=== PATIENT | male | born 1950 | race Caucasian/White ===

== ENCOUNTER 2020-03-11 19:44 | Emergency (ER) | payer MEDICARE, MEDICAID, SELFPAY ==
[2020-03-11 19:54] VITALS: BP 161/78; BP 162/77; PULSE 59; PULSE 64; RESP 15; TEMP 36; O2SAT 98; BMI 20.6
--- NOTE | 2020-03-11 20:39 | ED.WEAKNESS ---
HPI - Weakness General Chief complaint: Weakness Stated complaint: dizzy,de leon,not feeling well for days Time Seen by Provider: 03/11/20 20:36 Source: family Mode of arrival: ambulatory Limitations: altered mental status History of Present Illness HPI Narrative: patient's history of dementia brought by his for poor oral intake and feeling dizzy yesterday did not eat much all day today per no vomiting no diarrhea patient has done like this in the past, multiple times MD Complaint: generalized weakness Related Data Home Medications Medication Instructions Recorded Confirmed acetaminophen 1 tab PO TID PRN 03/11/20 03/11/20 cholecalciferol (vitamin D3) 1 cap PO QAM 03/11/20 03/11/20 dapagliflozin [Farxiga] 1 tab PO QAM 03/11/20 03/11/20 fluoxetine 1 cap PO QAM 03/11/20 03/11/20 metformin 1 tab PO BID 03/11/20 03/11/20 omega-3 fatty acids-fish oil [Fish 1 cap PO BEDTIME 03/11/20 03/11/20 Oil] omeprazole 1 cap PO QAM 03/11/20 03/11/20 Previous Rx's Medication Instructions Recorded atorvastatin 80 mg tablet 80 mg PO BEDTIME #90 tab 02/26/20 fenofibric acid (choline) 135 mg 135 mg PO BEDTIME #90 cap 03/01/20 capsule,delayed release metoprolol succinate 25 mg 25 mg PO QAM #90 tab 03/01/20 tablet,extended release 24 hr pen needle, diabetic 31 gauge x 1 ea MISCELLANEOUS DAILY #100 ea 03/01/20/ trazodone 50 mg tablet 25 mg PO BEDTIME #30 tab 03/01/20 valsartan 320 mg tablet 320 mg PO QAM #90 tab 03/01/20 docusate sodium 100 mg capsule 100 mg PO DAILY 30 Days #30 cap 03/04/20 Allergies Allergy/AdvReac Type Severity Reaction Status Date / Time diatrizoate sodium Allergy Unknown HIVES Verified 03/11/20 22:05 [From HYPAQUE] Iodinated Contrast Media Allergy Unknown HIVES Verified 03/11/20 22:05 [IV Dye, Iodine Containing] penicillin V Allergy Unknown Hives Verified 03/11/20 22:05 Penicillins [PENICILLINS] Allergy Unknown RASH Verified 11/05/20 22:05 dulaglutide [Trulicity] AdvReac Unknown abdominal Verified 12/29/19 00:00 pain Hypaque Meglumine Allergy Unknown Hives Uncoded 03/11/20 22:05 Hypaque Sodium Allergy Unknown Hives Uncoded 03/11/20 22:05 IV Contrast Allergy Unknown Hives Uncoded 03/11/20 22:05 iv dye Allergy Unknown Hives Uncoded 03/11/20 22:05 Review of Systems Review of Systems: Yes Unobtainable due to mental status [facility] Past Medical History Medical History (Updated 03/11/20 @ 23:26 by Vinnie Calderon MD) Dementia Developmental delay, mild Insomnia Surgical History (Updated 03/11/20 @ 20:05 by Meggan Hall) No history of previous surgery Social History Social History Alcohol intake: never Smoking Status: Never smoker Use of substances other than those prescribed or required for medical reasons: No Advance Directives: No Advance Directives Information Provided: No Physical Exam Vital Signs: Vital Signs: Last Vital Signs Temp 97.8 F 03/11/20 21:02 Pulse 66 03/11/20 22:23 Resp 15 03/11/20 22:23 BP 157/74 H 03/11/20 22:23 Pulse Ox 100 03/11/20 22:23 Body Mass Index 20.6 Appearance: Alert. Oriented X1. No acute distress. Eyes: Pupils equal, round and reactive to light. ENT: Pharynx normal. Neck: Normal inspection. Neck supple. CVS: Normal heart rate and rhythm. Pulses normal. Respiratory: No respiratory distress. Breath sounds normal. Abdomen: Soft and nontender. no mass palpable bowel sounds normal Skin: Skin warm and dry. Normal skin color. Normal skin turgor. Extremities: No lower extremity edema. Good range of movement Neuro: Oriented X 1. No motor deficit. No sensory deficit. severely demented Course Course Course Narrative: patient had p.o. fluids and had sandwich in the ER labs are stable will discharge patient home advised to continue force him to eat and drink and symptoms likely from dimentia MDM - Weakness Lab Data Result diagrams: 03/11/20 21:25 03/11/20 21:25 Labs: Lab Results 03/11/20 03/11/20 Range/Units 21:25 21:25 WBC 4.7 L (4.8-10.8) X10*3/uL RBC 4.35 L (4.60-5.80) X10*6/uL Hgb 12.1 L (14.0-18.0) g/dl Hct 38.1 L (42-52) % MCV 87.6 (80-98) fL MCH 27.8 (27.0-33.0) pg MCHC 31.8 (31.0-36.0) g/dl RDW 13.1 (11.0-16.0) % Plt Count 145 L (160-400) X10*3/uL MPV 10.9 (9.4-12.4) fL Immature Gran % (Auto) 0.2 (0.0-0.4) % Neut % (Auto) 54.3 (45-73) % Lymph % (Auto) 37.2 (20-40) % [place] % (Auto) 7.7 (2-11) % Eos % (Auto) 0.2 (0-4) % Baso % (Auto) 0.4 (0-2) % Lymph # (Auto) 1.7 (1.2-4.9) X10*3/uL [place] # (Auto) 0.4 (0.1-1.2) X10*3/uL Eos # (Auto) 0.0 (0.0-0.4) X10*3/uL Baso # (Auto) 0.0 (0.0-0.2) X10*3/uL Abs Immat Gran (auto) 0.01 (0.00-0.03) X10*3/uL Absolute Neuts (auto) 2.5 (2.0-8.3) X10*3/uL Absolute Nucleated RBC 0.000 (0.0-0.012) X10*3/uL Nucleated RBC % (auto) 0.0 (0.0-0.2) /100WBC Sodium 143 (135-145) mmol/L Potassium 3.6 (3.3-5.1) mmol/l Chloride 108 (96-108) mmol/L Carbon Dioxide 27 (22-29) mmol/L Anion Gap 12 (12-20) BUN 33 H (9-16) mg/dL Creatinine 0.79 (0.5-1.4) mg/dL Estim Creat Clear Calc 69.9 Estimated GFR > 60 Random Glucose 137 H (60-115) mg/dL Calcium 8.6 (8.4-10.2) mg/dL Magnesium 2.1 (1.6-2.6) mg/dL Total Bilirubin 0.4 (0.0-1.0) mg/dL Direct Bilirubin 0.3 (0.0-0.5) mg/dL AST 19 (5-37) U/L ALT 19 (0-40) U/L Alkaline Phosphatase 44 (39-117) U/L Total Protein 6.1 L (6.5-8.0) g/dL Albumin 3.9 (3.5-5.0) g/dL Lipase 88 H (8-78) U/L Discharge Plan Discharge Clinical Impression: Adult failure to thrive Patient Disposition: Home, Self-Care Instructions: Failure to Thrive in Older Adults (ED) Additional Instructions: give patient plenty of fluids and food and follow-up with your primary care doctor for further management Prescriptions: No Action atorvastatin 80 mg tablet 80 mg PO BEDTIME Qty: 90 RF: 3 valsartan 320 mg tablet 320 mg PO QAM Qty: 90 RF: 3 metoprolol succinate 25 mg tablet extended release 24 hr 25 mg PO QAM Qty: 90 RF: 0 fenofibric acid (choline) 135 mg capsule,delayed release(DR/EC) 135 mg PO BEDTIME Qty: 90 RF: 0 pen needle, diabetic [Easy Touch] 31 gauge x 3/16 needle 1 ea miscellaneous DAILY Qty: 100 RF: 0 trazodone 50 mg tablet 25 mg PO BEDTIME Qty: 30 RF: 0 docusate sodium [Colace] 100 mg capsule 100 mg PO DAILY 30 Days Qty: 30 RF: 2 acetaminophen 500 mg tablet 1 tab PO TID PRN (Reason: Pain (Scale Score 4-6)) RF: 0 metformin 1,000 mg tablet 1 tab PO BID RF: 0 fluoxetine 10 mg capsule 1 cap PO QAM RF: 0 omeprazole 20 mg capsule,delayed release(DR/EC) 1 cap PO QAM RF: 0 cholecalciferol (vitamin D3) 125 mcg (5,000 unit) capsule 1 cap PO QAM RF: 0 Fish Oil 340-1,000 mg capsule 1 cap PO BEDTIME RF: 0 Farxiga 10 mg tablet 1 tab PO QAM RF: 0 Interventions: ED Discharge Assessment Last Done: 03/12/20 00:30 Discharge Date/Time: 03/12/20 00:31 Print Language: Indian
[2020-03-11] MEDS: 0.9 % Sodium Chloride 1,000 ML 999 ML IVCONT (21:00)
[2020-03-11 21:02] VITALS: BP 159/79; PULSE 59; RESP 18; TEMP 36.6
[2020-03-11 21:48] LABS: MANUAL DIFF FLAG NO
[2020-03-11 21:55] LABS: Basophils Percent Auto 0.4 % (0-2); Eosinophils Percent Auto 0.2 % (0-4); Hematocrit 38.1 % (42-52); Hemoglobin 12.1 g/dl (14.0-18.0); Imm Gran Abs Auto 0.01 X10*3/uL (0.00-0.03); Imm Gran Pct Auto 0.2 % (0.0-0.4); Lymphocytes Absolute Auto 1.7 X10*3/uL (1.2-4.9); Lymphocytes Percent Auto 37.2 % (20-40); Mean Corpuscular HGB Conc 31.8 g/dl (31.0-36.0); Mean Corpuscular Hemoglobin 27.8 pg (27.0-33.0); Mean Corpuscular Volume 87.6 fL (80-98); Mean Platelet Volume 10.9 fL (9.4-12.4); Monocytes Absolute Auto 0.4 X10*3/uL (0.1-1.2); Monocytes Percent Auto 7.7 % (2-11); Neutrophils Absolute Auto 2.5 X10*3/uL (2.0-8.3); Neutrophils Percent Auto 54.3 % (45-73); Platelet Count 145 X10*3/uL (160-400); Red Blood Count 4.35 X10*6/uL (4.60-5.80); Red Cell Distribution Width 13.1 % (11.0-16.0); White Blood Count 4.7 X10*3/uL (4.8-10.8)
[2020-03-11 22:17] LABS: Alanine Aminotransferase 19 U/L (0-40); Albumin Level 3.9 g/dL (3.5-5.0); Alkaline Phosphatase 44 U/L (39-117); Anion Gap 12 (12-20); Aspartate Amino Transferase 19 U/L (5-37); Bilirubin Direct 0.3 mg/dL (0.0-0.5); Bilirubin Total 0.4 mg/dL (0.0-1.0); Blood Urea Nitrogen 33 mg/dL (9-16); Calcium 8.6 mg/dL (8.4-10.2); Carbon Dioxide 27 mmol/L (22-29); Chloride 108 mmol/L (96-108); Creatinine Clr Calc Pharmacy 69.9; Estimated Glomerular Filt Rate > 60; Glucose Random 137 mg/dL (60-115); Magnesium 2.1 mg/dL (1.6-2.6); Potassium 3.6 mmol/l (3.3-5.1); Sodium 143 mmol/L (135-145); Total Protein 6.1 g/dL (6.5-8.0)
[2020-03-11 22:23] VITALS: BP 157/74; PULSE 66; RESP 15; O2SAT 100
[2020-03-11 22:38] LABS: Lipase 88 U/L (8-78)
== END 2020-03-12 00:31 | disposition home or self-care (01) ==
PROVIDERS: Emergency Provider Internal Medicine; PCP Internal Medicine
DX: R53.1 Weakness (principal); R62.7 Adult failure to thrive; R42 Dizziness and giddiness; Z79.899 Other long term (current) drug therapy
CPT/HCPCS: 36415; 80048; 80076; 83690; 83735; 85025; 96360; 99284

== ENCOUNTER 2020-04-01 06:34 | Emergency (ER) | payer MEDICARE, MEDICAID, SELFPAY ==
[2020-04-01 07:15] VITALS: BP 131/62; PULSE 53; RESP 16; TEMP 36.6; O2SAT 99
[2020-04-01 07:44] VITALS: RESP 16
--- NOTE | 2020-04-01 08:06 | ED_ITS ---
HPI - Abdominal Pain General Chief Complaint: Abdominal Pain Stated Complaint: Constipated Time Seen by Provider: 04/01/20 07:42 History of Present Illness HPI narrative: patient is a 69-year-old male presented today with having no bowel movement for the last 2 weeks. No fever no chills no cough no congestion or upper respiratory symptoms. Patient is from home. No nausea no vomiting. Eating normally. Patient is mentally challenged. Also has dementia. Baseline awake alert oriented times 0. Patient is unable to give detailed history. History is obtained through the [facility] Related Data Home Medications Medication Instructions Recorded Confirmed acetaminophen 1 tab PO TID PRN 03/11/20 03/11/20 cholecalciferol (vitamin D3) 1 cap PO QAM 03/11/20 03/11/20 dapagliflozin [Farxiga] 1 tab PO QAM 03/11/20 03/11/20 fluoxetine 1 cap PO QAM 03/11/20 03/11/20 metformin 1 tab PO BID 03/11/20 03/11/20 Previous Rx's Medication Instructions Recorded atorvastatin 80 mg tablet 80 mg PO BEDTIME #90 tab 02/26/20 fenofibric acid (choline) 135 mg 135 mg PO BEDTIME #90 cap 03/01/20 capsule,delayed release metoprolol succinate 25 mg 25 mg PO QAM #90 tab 03/01/20 tablet,extended release 24 hr pen needle, diabetic 31 gauge x 1 ea MISCELLANEOUS DAILY #100 ea 03/01/20 3/16 trazodone 50 mg tablet 25 mg PO BEDTIME #30 tab 03/01/20 valsartan 320 mg tablet 320 mg PO QAM #90 tab 03/01/20 docusate sodium 100 mg capsule 100 mg PO DAILY 30 Days #30 cap 03/04/20 blood sugar diagnostic #50 ea 03/25/20 yhrime-[id number]-bepbvon 1 cap PO .TIDAC 30 Days #90 cap 03/25/20 3,000-10,000-14,000 unit capsule,delayed rel omega-3 fatty acids-fish oil 340 1 cap PO BEDTIME #30 cap 03/25/20 mg-1,000 mg capsule omeprazole 20 mg capsule,delayed 20 mg PO QAM 30 Days #30 cap 03/25/20 release polyethylene glycol 3350 [Miralax] 17 g PO BID #119 g 04/01/20 Allergies Allergy/AdvReac Type Severity Reaction Status Date / Time diatrizoate sodium Allergy Unknown HIVES Verified 03/11/20 22:05 [From HYPAQUE] Iodinated Contrast Media Allergy Unknown HIVES Verified 03/11/20 22:05 [IV Dye, Iodine Containing] penicillin V Allergy Unknown Hives Verified 03/11/20 22:05 Penicillins [PENICILLINS] Allergy Unknown RASH Verified 03/11/20 22:05 dulaglutide [Trulicity] AdvReac Unknown abdominal Verified 12/29/19 00:00 pain Hypaque Meglumine Allergy Unknown Hives Uncoded 03/11/20 22:05 Hypaque Sodium Allergy Unknown Hives Uncoded 03/11/20 22:05 IV Contrast Allergy Unknown Hives Uncoded 03/11/20 22:05 iv dye Allergy Unknown Hives Uncoded 03/11/20 22:05 Review of Systems Review of Systems Yes Unobtainable due to mental condition and Unobtainable due to mental status Physical Exam Vital Signs: Vital Signs: Last Vital Signs Temp 98 F 04/01/20 07:15 Pulse 53 04/01/20 07:15 Resp 16 04/01/20 07:44 BP 131/62 04/01/20 07:15 Pulse Ox 99 04/01/20 07:15 Body Mass Index 20.0 Appearance: Alert. No acute distress. Eyes: Pupils equal, round and reactive to light. ENT: Pharynx normal. Neck: Normal inspection. Neck supple. No lymph nodes noted. No crepitus CVS: Normal heart rate and rhythm. Pulses normal. Normal S1 and S2 Respiratory: No respiratory distress. Breath sounds normal. No Wheezing. No rales Abdomen: Soft and nontender. No rigidity. No distention. good BS x4 Skin: Skin warm and dry. Normal skin color. Normal skin turgor. Extremities: No lower extremity edema. Neurovascular intact to all extremities. No Lacerations. No Rash Neuro: Oriented X 0. No motor deficit. No sensory deficit. Moving all extermities. No slurred speech MDM - Abdominal Pain MDM Narrative Medical decision making narrative: Manually disimpacted small amount of stool. An enema was given a moderate amount of stool was produced. Patient's electrolytes unremarkable. Elevated BUN and creatinine is chronic. Patient to be discharged home. Repeat abdominal exam was soft nontender. Patient to be given MiraLax currently in stable condition. Differential Diagnosis Differential diagnosis: Likely constipation Medical Records Attestation: I reviewed the patient's medical records. Lab Data Attestation: I reviewed the patient's lab results. Result diagrams: 04/01/20 09:14 04/01/20 10:04 Labs: Lab Results 04/01/20 04/01/20 04/01/20 Range/Units 09:14 09:14 09:14 WBC 6.1 (4.8-10.8) X10*3/uL RBC 5.09 (4.60-5.80) X10*6/uL Hgb 14.1 (14.0-18.0) g/dl Hct 44.4 (42-52) % MCV 87.2 (80-98) fL MCH 27.7 (27.0-33.0) pg MCHC 31.8 (31.0-36.0) g/dl RDW 13.3 (11.0-16.0) % Plt Count 213 D (160-400) X10*3/uL MPV 10.6 (9.4-12.4) fL Immature Gran % (Auto) 0.2 (0.0-0.4) % Neut % (Auto) 46.1 (45-73) % Lymph % (Auto) 47.0 H (20-40) % [place] % (Auto) 6.1 (2-11) % Eos % (Auto) 0.3 (0-4) % Baso % (Auto) 0.3 (0-2) % Lymph # (Auto) 2.9 (1.2-4.9) X10*3/uL [place] # (Auto) 0.4 (0.1-1.2) X10*3/uL Eos # (Auto) 0.0 (0.0-0.4) X10*3/uL Baso # (Auto) 0.0 (0.0-0.2) X10*3/uL Abs Immat Gran (auto) 0.01 (0.00-0.03) X10*3/uL Absolute Neuts (auto) 2.8 (2.0-8.3) X10*3/uL Absolute Nucleated RBC 0.000 (0.0-0.012) X10*3/uL Nucleated RBC % (auto) 0.0 (0.0-0.2) /100WBC Hold Blue Top SEE NOTE Sodium Cancelled Potassium Cancelled Chloride Cancelled Carbon Dioxide Cancelled Anion Gap Cancelled BUN Cancelled Creatinine Cancelled Estim Creat Clear Calc Cancelled Estimated GFR Cancelled Random Glucose Cancelled Calcium Cancelled Total Bilirubin Cancelled Direct Bilirubin Cancelled AST Cancelled ALT Cancelled Alkaline Phosphatase Cancelled Total Protein Cancelled Albumin Cancelled Lipase Cancelled 04/01/20 04/01/20 04/01/20 Range/Units 10:04 10:04 10:04 WBC (4.8-10.8) X10*3/uL RBC (4.60-5.80) X10*6/uL Hgb (14.0-18.0) g/dl Hct (42-52) % MCV (80-98) fL MCH (27.0-33.0) pg MCHC (31.0-36.0) g/dl RDW (11.0-16.0) % Plt Count (160-400) X10*3/uL MPV (9.4-12.4) fL Immature Gran % (Auto) (0.0-0.4) % Neut % (Auto) (45-73) % Lymph % (Auto) (20-40) % [place] % (Auto) (2-11) % Eos % (Auto) (0-4) % Baso % (Auto) (0-2) % Lymph # (Auto) (1.2-4.9) X10*3/uL [place] # (Auto) (0.1-1.2) X10*3/uL Eos # (Auto) (0.0-0.4) X10*3/uL Baso # (Auto) (0.0-0.2) X10*3/uL Abs Immat Gran (auto) (0.00-0.03) X10*3/uL Absolute Neuts (auto) (2.0-8.3) X10*3/uL Absolute Nucleated RBC (0.0-0.012) X10*3/uL Nucleated RBC % (auto) (0.0-0.2) /100WBC Hold Blue Top Sodium 138 Potassium 3.8 Chloride 100 Carbon Dioxide 24 Anion Gap 18 BUN 37 H Creatinine 0.85 Estim Creat Clear Calc 65.3 Estimated GFR > 60 Random Glucose 193 H D Calcium 9.3 D Total Bilirubin 0.8 0.8 Direct Bilirubin 0.4 AST 19 19 ALT 18 18 Alkaline Phosphatase 42 43 Total Protein 7.2 7.2 Albumin 4.4 4.5 Lipase 39 Discharge Plan Discharge Clinical Impression: Constipation Patient Disposition: Home, Self-Care Instructions: Constipation (ED) Prescriptions: New polyethylene glycol 3350 [Miralax] 17 gram/dose powder 17 g PO BID Qty: 119 RF: 0 No Action atorvastatin 80 mg tablet 80 mg PO BEDTIME Qty: 90 RF: 3 valsartan 320 mg tablet 320 mg PO QAM Qty: 90 RF: 3 metoprolol succinate 25 mg tablet extended release 24 hr 25 mg PO QAM Qty: 90 RF: 0 fenofibric acid (choline) 135 mg capsule,delayed release(DR/EC) 135 mg PO BEDTIME Qty: 90 RF: 0 pen needle, diabetic [Easy Touch] 31 gauge x 3/16 needle 1 ea miscellaneous DAILY Qty: 100 RF: 0 trazodone 50 mg tablet 25 mg PO BEDTIME Qty: 30 RF: 0 docusate sodium [Colace] 100 mg capsule 100 mg PO DAILY 30 Days Qty: 30 RF: 2 (DME) FreeStyle Lite Strips Strip See Rx Instructions .ROUTE .MEDSUPPLY Qty: 50 RF: 11 Fish Oil 340-1,000 mg capsule 1 cap PO BEDTIME Qty: 30 RF: 6 omeprazole 20 mg capsule,delayed release(DR/EC) 20 mg PO QAM 30 Days Qty: 30 RF: 2 Zenpep 3,000-10,000 -14,000-unit capsule,delayed release(DR/EC) 1 cap PO .TIDAC 30 Days Qty: 90 RF: 2 acetaminophen 500 mg tablet 1 tab PO TID PRN (Reason: Pain (Scale Score 4-6)) RF: 0 metformin 1,000 mg tablet 1 tab PO BID RF: 0 fluoxetine 10 mg capsule 1 cap PO QAM RF: 0 cholecalciferol (vitamin D3) 125 mcg (5,000 unit) capsule 1 cap PO QAM RF: 0 Farxiga 10 mg tablet 1 tab PO QAM RF: 0 Referrals: Rajendra Quigley MD [Primary Care Provider] - 2 days [facility] Past Medical History Medical History Dementia Developmental delay, mild Dyslipidemia Insomnia Type 2 diabetes mellitus with other diabetic kidney complication Surgical History No history of previous surgery Social History Social History Alcohol intake: unknown Smoking Status: Unknown if ever smoked Use of substances other than those prescribed or required for medical reasons: No Advance Directives: No
[2020-04-01] MEDS: Sodium Phosphate,Mono-Dibasic 133 ML ENEMA PR (08:08)
[2020-04-01 09:19] LABS: Basophils Percent Auto 0.3 % (0-2); Eosinophils Percent Auto 0.3 % (0-4); Hematocrit 44.4 % (42-52); Hemoglobin 14.1 g/dl (14.0-18.0); Imm Gran Abs Auto 0.01 X10*3/uL (0.00-0.03); Imm Gran Pct Auto 0.2 % (0.0-0.4); Lymphocytes Absolute Auto 2.9 X10*3/uL (1.2-4.9); MANUAL DIFF FLAG NO; Mean Corpuscular HGB Conc 31.8 g/dl (31.0-36.0); Mean Corpuscular Hemoglobin 27.7 pg (27.0-33.0); Mean Corpuscular Volume 87.2 fL (80-98); Mean Platelet Volume 10.6 fL (9.4-12.4); Monocytes Absolute Auto 0.4 X10*3/uL (0.1-1.2); Monocytes Percent Auto 6.1 % (2-11); Neutrophils Absolute Auto 2.8 X10*3/uL (2.0-8.3); Neutrophils Percent Auto 46.1 % (45-73); Platelet Count 213 X10*3/uL (160-400); Red Blood Count 5.09 X10*6/uL (4.60-5.80); Red Cell Distribution Width 13.3 % (11.0-16.0); White Blood Count 6.1 X10*3/uL (4.8-10.8)
[2020-04-01 10:00] VITALS: RESP 16
[2020-04-01 10:39] LABS: Lipase 39 U/L (8-78)
[2020-04-01 10:42] LABS: Alanine Aminotransferase 18 U/L (0-40); Albumin Level 4.4 g/dL (3.5-5.0); Albumin Level 4.5 g/dL (3.5-5.0); Alkaline Phosphatase 42 U/L (39-117); Alkaline Phosphatase 43 U/L (39-117); Anion Gap 18 (12-20); Aspartate Amino Transferase 19 U/L (5-37); Bilirubin Direct 0.4 mg/dL (0.0-0.5); Bilirubin Total 0.8 mg/dL (0.0-1.0); Blood Urea Nitrogen 37 mg/dL (9-16); Calcium 9.3 mg/dL (8.4-10.2); Carbon Dioxide 24 mmol/L (22-29); Chloride 100 mmol/L (96-108); Creatinine Clr Calc Pharmacy 65.3; Estimated Glomerular Filt Rate > 60; Glucose Random 193 mg/dL (60-115); Potassium 3.8 mmol/l (3.3-5.1); Sodium 138 mmol/L (135-145); Total Protein 7.2 g/dL (6.5-8.0)
== END 2020-04-01 11:30 | disposition home or self-care (01) ==
PROVIDERS: Emergency Provider Emergency Medicine Emergency Medical Services; PCP Internal Medicine
DX: K59.00 Constipation, unspecified (principal); Z79.899 Other long term (current) drug therapy
CPT/HCPCS: 36415; 80053; 80076; 82248; 83690; 85025; 99284

== ENCOUNTER 2020-04-19 08:33 | Outpatient (REF) | payer MEDICARE, MEDICAID, SELFPAY ==
[2020-04-19 11:10] LABS: Thyroid Stimulating Hormone 0.54 uIU/mL (0.32-4.0)
[2020-04-19 12:01] LABS: Erythrocyte Sedimentation Rate 2 MM/HR (0-15)
[2020-04-20 08:38] LABS: Lyme Abs Screen <0.90 index
[2020-04-20 16:22] LABS: Anti Nuclear Antibody Screen NEGATIVE (NEGATIVE)
== END 2020-04-19 08:34 | disposition home or self-care (01) ==
LOC: HO.LAB 08:33
PROVIDERS: PCP Internal Medicine; Visit Provider Internal Medicine
DX: M62.59 Muscle wasting and atrophy, not elsewhere classified, multiple sites (principal); R63.4 Abnormal weight loss
CPT/HCPCS: 36415; 82550; 84439; 84443; 85652; 86038; 86039; 86618

== ENCOUNTER → 2020-05-06 13:22 | Outpatient (BNVA) | payer MEDICARE, MEDICAID, SELFPAY | PROVIDERS: Visit Provider Internal Medicine Gastroenterology | DX: Z13.89 Encounter for screening for other disorder (principal) | CPT/HCPCS: Q3014 ==

== ENCOUNTER → 2020-05-11 08:49 | Outpatient (BNVA) | payer MEDICARE, MEDICAID, SELFPAY | PROVIDERS: PCP Internal Medicine; Referring Provider Internal Medicine; Visit Provider Nurse Practitioner Gerontology | DX: Z13.89 Encounter for screening for other disorder (principal) | CPT/HCPCS: Q3014 ==

== ENCOUNTER 2020-05-13 09:24 | Emergency (ER) | payer MEDICARE, MEDICAID, SELFPAY ==
[2020-05-13 09:34] VITALS: BP 152/71; PULSE 84; RESP 18; TEMP 37.2; O2SAT 100; BMI 17.2
--- NOTE | 2020-05-13 09:39 | XR_ITS ---
EXAMINATION: XR CHEST CLINICAL INFORMATION: Shaking chills. Rales at bases on auscultation COMPARISON: Chest radiographs 12/10/2019, 03/09/2016 TECHNIQUE: Two portable upright AP views of the chest was obtained. FINDINGS: There is no airspace consolidation or definite groundglass opacity. No pleural reaction or effusion. The heart is normal in size and the hilar and mediastinal contours are normal. No visible acute bony abnormality. XR/XR chest 1V IMPRESSION: Unremarkable examination.
--- NOTE | 2020-05-13 09:40 | ECG_ITS ---
Test Reason : WEAKNESS Blood Pressure : / mmHG Vent. Rate : 111 BPM Atrial Rate : 326 BPM P-R Int : 180 ms QRS Dur : 094 ms QT Int : 406 ms P-R-T Axes : 000 052 069 degrees QTc Int : 552 ms Poor data quality Undetermined rhythm When compared with ECG of 03-JUN-2015 13:01, Current undetermined rhythm precludes rhythm comparison, needs review Referred By: Michele Ghosh Electronically Signed By:Martin Valencia
--- NOTE | 2020-05-13 09:42 | ED_ITS ---
HPI - General Adult General Chief complaint: General Medical Stated complaint: shaky Time Seen by Provider: 05/13/20 09:39 Source: family (Patient's niece, Tosha) and EMS Mode of arrival: EMS Limitations: other (Patient is nonverbal secondary to mental retardation) History of Present Illness HPI narrative: 69-year-old male who was sent to the emergency department by his family for evaluation general body shakiness and loss of appetite. The patient's niece, tosha is here in the emergency department the information came from her. The patient has a history of mental retardation and is only minimally verbal. The patient lives with his sister who is the patient's primary caregiver at home. The patient normally has a very good appetite but today he refused to eat. He was noted to have generalized body shaking which was unusual, unclear how long the shaking lasted. The patient had no other symptoms according to his niece. The family was concerned about the patient's symptoms and called an ambulance and had the patient transported to the emergency department for evaluation. The patient is nonverbal but does follow simple commands given in Swedish by his niece. According to his niece, the patient has had a 100 lb unexplained weight loss over the past year. Related Data Home Medications Medication Instructions Recorded Confirmed acetaminophen 1 tab PO TID PRN 03/11/20 05/11/20 cholecalciferol (vitamin D3) 1 cap PO QAM 03/11/20 05/11/20 dapagliflozin [Farxiga] 1 tab PO QAM 03/11/20 05/11/20 fluoxetine 1 cap PO QAM 03/11/20 05/11/20 metformin 1 tab PO BID 03/11/20 05/11/20 aspirin 81 mg chewable tablet 1 tab PO QAM 04/21/20 05/11/20 alcohol swabs pad TOPICAL 05/11/20 05/11/20 colesevelam 625 mg tablet mg PO 05/11/20 05/11/20 cyproheptadine 4 mg tablet 4 mg PO BID 05/11/20 05/11/20 sennosides 8.6 mg tablet 17.2 mg PO BEDTIME PRN 05/11/20 05/11/20 Previous Rx's Medication Instructions Recorded atorvastatin 80 mg tablet 80 mg PO BEDTIME #90 tab 02/26/20 fenofibric acid (choline) 135 mg 135 mg PO BEDTIME #90 cap 03/01/20 capsule,delayed release metoprolol succinate 25 mg 25 mg PO QAM #90 tab 03/01/20 tablet,extended release 24 hr pen needle, diabetic 31 gauge x 1 ea MISCELLANEOUS DAILY #100 ea 03/01/20 3/16 valsartan 320 mg tablet 320 mg PO QAM #90 tab 03/01/20 docusate sodium 100 mg capsule 100 mg PO DAILY 30 Days #30 cap 03/04/20 iqqygw-udanimkv-yhacsau 1 cap PO .TIDAC 30 Days #90 cap 03/25/20 3,000-10,000-14,000 unit capsule,delayed rel omega-3 fatty acids-fish oil 340 1 cap PO BEDTIME #30 cap 03/25/20 mg-1,000 mg capsule omeprazole 20 mg capsule,delayed 20 mg PO QAM 30 Days #30 cap 03/25/20 release nut.tx.gluc.intol,lac-free,soy See Rx Instructions .ROUTE 04/08/20 .COMPLEX 30 Days #90 bottle magnesium citrate 150 ml PO ONCE PRN #296 ml 04/12/20 sodium phosphates 19 gram-7 118 ml [place] ONCE PRN 1 Days #1 ea 04/12/20 gram/118 mL enema lancets 33 gauge #100 ea 04/22/20 blood sugar diagnostic #50 ea 05/03/20 lubiprostone 24 mcg capsule 24 mcg PO BID 30 Days #60 cap 05/06/20 Allergies Allergy/AdvReac Type Severity Reaction Status Date / Time diatrizoate sodium Allergy Unknown HIVES Verified 05/11/20 10:48 [From HYPAQUE] Iodinated Contrast Media Allergy Unknown HIVES Verified 05/11/20 10:48 [IV Dye, Iodine Containing] penicillin V Allergy Unknown Hives Verified 05/11/20 10:48 Penicillins [PENICILLINS] Allergy Unknown RASH Verified 05/11/20 10:48 dulaglutide [Trulicity] AdvReac Unknown abdominal Verified 05/11/20 10:48 pain Review of Systems Review of Systems: Yes Unobtainable due to mental status (Mental retardation, minimally verbal) [facility], [facility] Past Medical History Medical History Benign essential hypertension Dementia Depression Developmental delay, mild Dyslipidemia Essential hypertension Gastric ulcer without hemorrhage or perforation History of Helicobacter pylori infection Insomnia Proteinuria Tubular adenoma 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 Unexplained weight loss Unsteady gait Vitamin D deficiency Surgical History History of colonoscopy Hx of endoscopy Family History Family History Father Hypertension CVD (cardiovascular disease) Mother Hypertension Diabetes Cancer Social History Social History Household Members: None Housing: Apartment Alcohol intake: never Smoking Status: Never smoker Advance Directives: No Advance Directives Information Provided: Yes Physical Exam Vital Signs: Vital Signs: Last Vital Signs Temp 99 F 05/13/20 09:34 Pulse 79 05/13/20 10:29 Resp 20 05/13/20 10:29 BP 157/76 H 05/13/20 10:29 Pulse Ox 100 05/13/20 10:29 Body Mass Index 17.2 Const: General: cooperative, well developed and in distress; No ill appearing HENMT: Head: Yes normal to inspection, Yes normocephalic and Yes atraumatic Ears: external ears normal General nose exam: Normal external nose present Face and sinus: Yes normal facial exam Mouth: Normal oral and palatal mucosa present Throat: Yes posterior oropharynx normal Eyes: Periorbital: periorbital findings normal Eyelids: Yes eyelids normal Conjunctivae: conjunctivae normal Sclerae: sclerae normal Corneas: corneas normal Pupils: Equal, round and reactive pupils present Direct Ophthalmoscopy: normal light reflex Neck: Neck: Yes full ROM, Yes no lymphadenopathy, Yes no meningeal signs, Yes trachea midline and Yes supple Chest: Chest palpation & inspection: normal inspection of the chest and normal palpation of entire chest wall Resp: Effort & Inspection: normal respiratory effort and able to speak in complete sentences Auscultation: clear to auscultation bilaterally Cardio: Rate: regular rate Rhythm: regular rhythm Heart sounds: S1 normal heart sound present, S2 normal heart sound present and no murmurs GI: Inspection: Yes normal to inspection Palpation (GI): Soft to palpation, Tenderness to palpation present (GI) suprapubicly (Mild), no guarding, not rigid and No hepatosplenomegaly present : General: Yes no CVA tenderness Back/Spine/Pelvis: Back: no CVA tenderness Cervical Spine: normal cervical lordosis Thoracic/Lumbar Spine: thoracic and lumbar spine normal to inspection Skin: Lesions: no lesions Rashes: no rashes Wounds: no wounds Neuro: General: no meningeal signs Cranial nerves: Yes Equal, round and reactive pupils present Motor exam (neuro): Other motor observations present (Moves all extremities symmetrically) Extrem: General: Yes normal to inspection and Yes full ROM Psych: Appearance: well kempt Attitude: cooperative Thought process: Normal thought process present Course Course Course Narrative: 69-year-old male with history of dementia, mental retardation, diabetes mellitus, hypertension, hyperlipidemia, GERD and GI bleed in the past who presents emergency department for evaluation of uncontrolled shaking and loss of appetite. On presentation the patient's vital signs are normal. Physical examination did reveal mild suprapubic tenderness. Concerned that the shaking may represent rigors therefore septic workup was ordered. I also ordered EKG and troponin on the patient. The patient will also be given normal saline IV. 1225 laboratory evaluation revealed a low white blood count 2500, low platelet count of a 615004, anemia with an H&H of 12.5 and 30.7. The leukopenia and the thrombocytopenia are new. BUN was slightly elevated at 26 with a normal creatinine. Urinalysis was negative. Chest x-ray revealed no pneumonia. I nfluenza screen was negative. COVID-19 a was positive. I did discuss these findings with the patient's niece who is here in the emergency department. The patient will be discharged home with instructions on COVID-19. At this time, I do not think the patient needs to be hospitalized since he is not hypoxic and has no signs of pneumonia. Medical Decision Making Lab Data Result diagrams: 05/13/20 10:11 05/13/20 10:11 Labs: Lab Results 05/13/20 05/13/20 05/13/20 Range/Units 10:11 10:11 10:11 WBC 2.5 L (4.8-10.8) X10*3/uL RBC 4.51 L (4.60-5.80) X10*6/uL Hgb 12.5 L (14.0-18.0) g/dl Hct 38.7 L (42-52) % MCV 85.8 (80-98) fL MCH 27.7 (27.0-33.0) pg MCHC 32.3 (31.0-36.0) g/dl RDW 13.8 (11.0-16.0) % Plt Count 113 L D (160-400) X10*3/uL MPV 11.0 (9.4-12.4) fL Immature Gran % (Auto) 0.4 (0.0-0.4) % Neut % (Auto) 57.4 (45-73) % Lymph % (Auto) 29.6 (20-40) % [place] % (Auto) 12.6 H (2-11) % Eos % (Auto) 0.0 (0-4) % Baso % (Auto) 0.0 (0-2) % Lymph # (Auto) 0.7 L (1.2-4.9) X10*3/uL [place] # (Auto) 0.3 (0.1-1.2) X10*3/uL Eos # (Auto) 0.0 (0.0-0.4) X10*3/uL Baso # (Auto) 0.0 (0.0-0.2) X10*3/uL Abs Immat Gran (auto) 0.01 (0.00-0.03) X10*3/uL Absolute Neuts (auto) 1.4 L (2.0-8.3) X10*3/uL Absolute Nucleated RBC 0.000 (0.0-0.012) X10*3/uL Nucleated RBC % (auto) 0.0 (0.0-0.2) /100WBC PT 14.3 H (10.8-13.0) SEC INR 1.2 H (0.9-1.1) APTT 36.2 (24.1-38.0) SEC Sodium (135-145) mmol/L Potassium (3.3-5.1) mmol/l Chloride (96-108) mmol/L Carbon Dioxide (22-29) mmol/L Anion Gap (12-20) BUN (9-16) mg/dL Creatinine (0.5-1.4) mg/dL Estim Creat Clear Calc Estimated GFR Random Glucose (60-115) mg/dL Lactic Acid 0.8 (0.5-2.0) mmol/L Calcium (8.4-10.2) mg/dL Total Bilirubin (0.0-1.0) mg/dL AST (5-37) U/L ALT (0-40) U/L Alkaline Phosphatase (39-117) U/L Troponin I High Sens (<3.5-35.0) ng/L Total Protein (6.5-8.0) g/dL Albumin (3.5-5.0) g/dL Lipase (8-78) U/L Coronavirus (PCR) (Negative) Influenza Type A (PCR) (Negative) Influenza Type B (PCR) (Negative) RSV RNA Qual (PCR) (Negative) 05/13/20 05/13/20 05/13/20 Range/Units 10:11 10:11 10:11 WBC (4.8-10.8) X10*3/uL RBC (4.60-5.80) X10*6/uL Hgb (14.0-18.0) g/dl Hct (42-52) % MCV (80-98) fL MCH (27.0-33.0) pg MCHC (31.0-36.0) g/dl RDW (11.0-16.0) % Plt Count (160-400) X10*3/uL MPV (9.4-12.4) fL Immature Gran % (Auto) (0.0-0.4) % Neut % (Auto) (45-73) % Lymph % (Auto) (20-40) % [place] % (Auto) (2-11) % Eos % (Auto) (0-4) % Baso % (Auto) (0-2) % Lymph # (Auto) (1.2-4.9) X10*3/uL [place] # (Auto) (0.1-1.2) X10*3/uL Eos # (Auto) (0.0-0.4) X10*3/uL Baso # (Auto) (0.0-0.2) X10*3/uL Abs Immat Gran (auto) (0.00-0.03) X10*3/uL Absolute Neuts (auto) (2.0-8.3) X10*3/uL Absolute Nucleated RBC (0.0-0.012) X10*3/uL Nucleated RBC % (auto) (0.0-0.2) /100WBC PT (10.8-13.0) SEC INR (0.9-1.1) APTT (24.1-38.0) SEC Sodium 141 (135-145) mmol/L Potassium 3.9 (3.3-5.1) mmol/l Chloride 107 (96-108) mmol/L Carbon Dioxide 24 (22-29) mmol/L Anion Gap 14 (12-20) BUN 26 H (9-16) mg/dL Creatinine 0.68 (0.5-1.4) mg/dL Estim Creat Clear Calc 76.4 Estimated GFR > 60 Random Glucose 116 H D (60-115) mg/dL Lactic Acid (0.5-2.0) mmol/L Calcium 9.3 (8.4-10.2) mg/dL Total Bilirubin 0.9 (0.0-1.0) mg/dL AST 20 (5-37) U/L ALT 32 (0-40) U/L Alkaline Phosphatase 55 D (39-117) U/L Troponin I High Sens 12.7 (<3.5-35.0) ng/L Total Protein 7.0 (6.5-8.0) g/dL Albumin 4.5 (3.5-5.0) g/dL Lipase 53 (8-78) U/L Coronavirus (PCR) POSITIVE A (Negative) Influenza Type A (PCR) NEGATIVE (Negative) Influenza Type B (PCR) NEGATIVE (Negative) RSV RNA Qual (PCR) NEGATIVE (Negative) Discharge Plan Discharge Clinical Impression: COVID-19, Weakness, Acute dehydration Patient Disposition: Home, Self-Care Instructions: COVID-19 (Coronavirus Disease 2019) (ED) Additional Instructions: Your COVID-19 test was positive. Your flu test was negative. Your blood work revealed mild dehydration otherwise was unremarkable. This explains your symptoms of weakness, loss of appetite and shakiness (shakiness can sometimes be a sign infection and fever). Take ibuprofen 200 mg pills, 3 pills every 6 hours as needed for pain. Take Tylenol (acetaminophen) 500 mg pills, 2 pills every 4 to 6 hours as needed for pain. Your COVID-19 test was positive Based on your evaluation today, it is okay to send you home. Please plan for self quarantine for up to 14 days. Do not expose yourself to others. You may not go to work. Please continue to wear a mask, follow cold instructions and wash your hands frequently. CDC Guidelines for home isolation: - Stay away from others - WEAR A MASK at all times and stay home - Cover your mouth and nose with a tissue when you cough or sneeze. Dispose of tissues in a lined trash can and wash your hands immediately with soap and water for at least 20 seconds. If soap and water are not available, clean hands with alcohol-based hand on site soil evaluator that contains at least 60% alcohol. - Clean your hands often with soap and water for at least 20 seconds - Avoid touching your eyes, nose and mouth with unwashed hands - Do not share dishes, drinking glasses, cups, eating utensils, towels, or bedding with other people in your home. After using these items, wash them thoroughly with soap and water or put in the temper mill operator. - Clean high-touch surfaces in your isolation area ( sick room and bathroom) every day; let a caregiver clean and disinfect high-touch surfaces in other areas of the home. Clean the area or item with soap and water or another detergent if it is dirty. Then, use a household disinfectant. - Limit contact with pets and animals: If you must care for a pet, wash your hands before and after interacting with them). Prescriptions: No Action atorvastatin 80 mg tablet 80 mg PO BEDTIME Qty: 90 RF: 3 valsartan 320 mg tablet 320 mg PO QAM Qty: 90 RF: 3 metoprolol succinate 25 mg tablet extended release 24 hr 25 mg PO QAM Qty: 90 RF: 0 fenofibric acid (choline) 135 mg capsule,delayed release(DR/EC) 135 mg PO BEDTIME Qty: 90 RF: 0 pen needle, diabetic [Easy Touch] 31 gauge x 3/16 needle 1 ea miscellaneous DAILY Qty: 100 RF: 0 docusate sodium [Colace] 100 mg capsule 100 mg PO DAILY 30 Days Qty: 30 RF: 2 Fish Oil 340-1,000 mg capsule 1 cap PO BEDTIME Qty: 30 RF: 6 omeprazole 20 mg capsule,delayed release(DR/EC) 20 mg PO QAM 30 Days Qty: 30 RF: 2 Zenpep 3,000-10,000 -14,000-unit capsule,delayed release(DR/EC) 1 cap PO .TIDAC 30 Days Qty: 90 RF: 2 Glucerna Liquid See Rx Instructions .ROUTE .COMPLEX 30 Days Qty: 90 RF: 12 Fleet Enema 19-7 gram/118 mL enema 118 ml [place] ONCE PRN (Reason: constipation) 1 Days Qty: 1 RF: 0 magnesium citrate [Citrate of Magnesia] Solution 150 ml PO ONCE PRN (Reason: constipation) Qty: 296 RF: 0 (DME) lancets [TRUEplus Lancets] 33 gauge misc See Rx Instructions .ROUTE .MEDSUPPLY Qty: 100 RF: 6 (DME) FreeStyle Lite Strips Strip See Rx Instructions .ROUTE .MEDSUPPLY Qty: 50 RF: 11 acetaminophen 500 mg tablet 1 tab PO TID PRN (Reason: Pain (Scale Score 4-6)) RF: 0 metformin 1,000 mg tablet 1 tab PO BID RF: 0 fluoxetine 10 mg capsule 1 cap PO QAM RF: 0 cholecalciferol (vitamin D3) 125 mcg (5,000 unit) capsule 1 cap PO QAM RF: 0 Farxiga 10 mg tablet 1 tab PO QAM RF: 0 aspirin 81 mg tablet,chewable 1 tab PO QAM RF: 0 alcohol swabs Pads, Medicated topical RF: 0 sennosides 8.6 mg tablet 17.2 mg PO BEDTIME PRNRF: 0 cyproheptadine 4 mg tablet 4 mg PO BID RF: 0 colesevelam 625 mg tablet PO RF: 0 lubiprostone 24 mcg capsule 24 mcg PO BID 30 Days Qty: 60 RF: 3
[2020-05-13 10:29] VITALS: BP 157/76; PULSE 79; RESP 20; O2SAT 100
[2020-05-13 10:49] LABS: Imm Gran Abs Auto 0.01 X10*3/uL (0.00-0.03); Imm Gran Pct Auto 0.4 % (0.0-0.4); Mean Corpuscular Volume 85.8 fL (80-98); PLT CLUMP 1; Red Cell Distribution Width 13.8 % (11.0-16.0); SCAN SMEAR FLAG 1
[2020-05-13 10:51] LABS: Hematocrit 38.7 % (42-52); Hemoglobin 12.5 g/dl (14.0-18.0); Lymphocytes Absolute Auto 0.7 X10*3/uL (1.2-4.9); Lymphocytes Percent Auto 29.6 % (20-40); Mean Corpuscular HGB Conc 32.3 g/dl (31.0-36.0); Mean Corpuscular Hemoglobin 27.7 pg (27.0-33.0); Monocytes Absolute Auto 0.3 X10*3/uL (0.1-1.2); Monocytes Percent Auto 12.6 % (2-11); Neutrophils Absolute Auto 1.4 X10*3/uL (2.0-8.3); Neutrophils Percent Auto 57.4 % (45-73); Platelet Count 113 X10*3/uL (160-400); Red Blood Count 4.51 X10*6/uL (4.60-5.80)
[2020-05-13 10:52] LABS: MANUAL DIFF FLAG NO
[2020-05-13 10:54] LABS: INTERNATIONAL NORM RATIO 1.2 (0.9-1.1); Prothrombin Time 14.3 SEC (10.8-13.0)
[2020-05-13 10:57] LABS: Partial Thromboplastin Time 36.2 SEC (24.1-38.0)
[2020-05-13 10:58] LABS: White Blood Count 2.5 X10*3/uL (4.8-10.8)
[2020-05-13 11:15] LABS: Lactic Acid 0.8 mmol/L (0.5-2.0)
[2020-05-13 11:22] LABS: Alanine Aminotransferase 32 U/L (0-40); Albumin Level 4.5 g/dL (3.5-5.0); Alkaline Phosphatase 55 U/L (39-117); Anion Gap 14 (12-20); Aspartate Amino Transferase 20 U/L (5-37); Bilirubin Total 0.9 mg/dL (0.0-1.0); Blood Urea Nitrogen 26 mg/dL (9-16); Calcium 9.3 mg/dL (8.4-10.2); Carbon Dioxide 24 mmol/L (22-29); Chloride 107 mmol/L (96-108); Creatinine Clr Calc Pharmacy 76.4; Estimated Glomerular Filt Rate > 60; Glucose Random 116 mg/dL (60-115); Lipase 53 U/L (8-78); Potassium 3.9 mmol/l (3.3-5.1); Sodium 141 mmol/L (135-145)
[2020-05-13 11:25] LABS: Troponin-I High Sensitivity 12.7 ng/L (<3.5-35.0)
[2020-05-13 11:30] LABS: Influenza A PCR NEGATIVE (Negative); Influenza B PCR NEGATIVE (Negative); Resp Syncy Virus RNA Qual PCR NEGATIVE (Negative); SARS COV2 PCR INHOUSE POSITIVE (Negative)
[2020-05-13 12:53] VITALS: BP 144/73; PULSE 87; RESP 15; TEMP 37.7; O2SAT 99
--- NOTE | 2020-05-13 12:58 | PC.NURSE ---
MD to bedside to speak with family. They report they will take care of him at home and return if pt worsens. Pt resting quietly, no shortness of breath noted, VS stable
== END 2020-05-13 13:20 | disposition home or self-care (01) ==
PROVIDERS: Emergency Provider Emergency Medicine Emergency Medical Services
DX: U07.1 COVID-19 (principal); R53.1 Weakness; E86.0 Dehydration; I10 Essential (primary) hypertension; E11.9 Type 2 diabetes mellitus without complications
CPT/HCPCS: 0241U; 36415; 71045; 80053; 83605; 83690; 84484; 85025; 85610; 85730; 93005; 96360; 99284

== ENCOUNTER → 2020-06-17 13:57 | Outpatient (BNVA) | payer MEDICARE, MEDICAID, SELFPAY | PROVIDERS: PCP Internal Medicine; Visit Provider Internal Medicine Gastroenterology | CPT/HCPCS: Q3014 ==

== ENCOUNTER 2020-07-10 08:08 | Outpatient (REF) | payer MEDICARE, MEDICAID, SELFPAY ==
[2020-07-10 09:59] LABS: MANUAL DIFF FLAG NO
[2020-07-10 10:18] LABS: Estimated Average Glucose 114 mg/dL; Hemoglobin A1c % 5.6 %
[2020-07-10 10:19] LABS: Estimated Average Glucose 114 mg/dL; Hemoglobin A1c % 5.6 %
[2020-07-10 10:23] LABS: Basophils Percent Auto 0.3 % (0-2); Eosinophils Percent Auto 0.3 % (0-4); Hemoglobin 13.9 g/dl (14.0-18.0); Imm Gran Abs Auto 0.02 X10*3/uL (0.00-0.03); Imm Gran Pct Auto 0.3 % (0.0-0.4); Lymphocytes Absolute Auto 2.5 X10*3/uL (1.2-4.9); Lymphocytes Percent Auto 34.9 % (20-40); Mean Corpuscular HGB Conc 31.6 g/dl (31.0-36.0); Mean Corpuscular Hemoglobin 27.5 pg (27.0-33.0); Mean Platelet Volume 11.6 fL (9.4-12.4); Monocytes Absolute Auto 0.3 X10*3/uL (0.1-1.2); Monocytes Percent Auto 4.1 % (2-11); Neutrophils Absolute Auto 4.3 X10*3/uL (2.0-8.3); Neutrophils Percent Auto 60.1 % (45-73); Platelet Count 237 X10*3/uL (160-400); Red Blood Count 5.06 X10*6/uL (4.60-5.80); Red Cell Distribution Width 14.6 % (11.0-16.0); White Blood Count 7.1 X10*3/uL (4.8-10.8)
[2020-07-10 10:54] LABS: Creatinine Urine 65.22 mg/dL; Microalbum/Creatinine Ratio Ur 349.5 ug/mg cr
[2020-07-10 11:00] LABS: Alanine Aminotransferase 72 U/L (0-40); Albumin Level 4.3 g/dL (3.5-5.0); Alkaline Phosphatase 88 U/L (39-117); Anion Gap 13 (12-20); Aspartate Amino Transferase 27 U/L (5-37); Bilirubin Total 0.7 mg/dL (0.0-1.0); Blood Urea Nitrogen 27 mg/dL (9-16); Calcium 9.4 mg/dL (8.4-10.2); Carbon Dioxide 27 mmol/L (22-29); Chloride 103 mmol/L (96-108); Cholesterol 238 mg/dL; Estimated Glomerular Filt Rate > 60; Glucose Fasting 117 mg/dL (60-99); HDL Cholesterol 59 mg/dL; LDL Cholesterol Calculated 156 mg/dl; Potassium 4.1 mmol/L (3.3-5.1); Sodium 139 mmol/L (135-145); Total Protein 7.2 g/dL (6.5-8.0); Triglycerides 116 mg/dL
[2020-07-10 11:02] LABS: Alanine Aminotransferase 72 U/L (0-40); Albumin Level 4.3 g/dL (3.5-5.0); Alkaline Phosphatase 88 U/L (39-117); Anion Gap 13 (12-20); Aspartate Amino Transferase 27 U/L (5-37); Bilirubin Total 0.8 mg/dL (0.0-1.0); Blood Urea Nitrogen 29 mg/dL (9-16); Calcium 9.3 mg/dL (8.4-10.2); Carbon Dioxide 27 mmol/L (22-29); Chloride 103 mmol/L (96-108); Cholesterol 239 mg/dL; Estimated Glomerular Filt Rate > 60; Glucose Random 114 mg/dL (60-115); HDL Cholesterol 60 mg/dL; LDL Cholesterol Calculated 156 mg/dl; Potassium 4.1 mmol/L (3.3-5.1); Sodium 139 mmol/L (135-145); Total Protein 7.2 g/dL (6.5-8.0); Triglycerides 118 mg/dL
[2020-07-10 11:05] LABS: Vitamin D 25-OH Total 57.9 ng/mL (>30)
[2020-07-10 11:08] LABS: Free T4 (Free Thyroxine) 0.92 ng/dL (0.71-1.85); Thyroid Stimulating Hormone 0.61 uIU/mL (0.32-4.0); Vitamin D 25-OH Total 58.1 ng/mL (>30)
[2020-07-11 08:24] LABS: SARS COV2 IgG Positive (Negative)
[2020-07-11 10:06] LABS: LDL Cholesterol Direct 144 mg/dL (<100)
[2020-07-12 05:27] LABS: Folate 10.8 ng/mL (> or = 4.0); Vitamin B12 610 pg/mL (200-900)
== END 2020-07-10 08:09 | disposition home or self-care (01) ==
LOC: HO.LAB 08:08
PROVIDERS: PCP Internal Medicine; Visit Provider Nurse Practitioner Gerontology
DX: E11.42 Type 2 diabetes mellitus with diabetic polyneuropathy (principal); E11.29 Type 2 diabetes mellitus with other diabetic kidney complication; E78.2 Mixed hyperlipidemia; U07.1 COVID-19; I10 Essential (primary) hypertension; K25.9 Gastric ulcer, unspecified as acute or chronic, without hemorrhage or perforation; R63.4 Abnormal weight loss; E55.9 Vitamin D deficiency, unspecified; R26.81 Unsteadiness on feet
CPT/HCPCS: 36415; 80053; 80061; 82043; 82306; 82607; 82746; 83036; 83721; 84439; 84443; 85025; 86769

== ENCOUNTER → 2020-07-19 11:29 | Outpatient (BNVA) | payer MEDICARE, MEDICAID, SELFPAY | PROVIDERS: PCP Internal Medicine; Visit Provider Internal Medicine Gastroenterology | DX: R13.14 Dysphagia, pharyngoesophageal phase (principal); K25.9 Gastric ulcer, unspecified as acute or chronic, without hemorrhage or perforation; R63.4 Abnormal weight loss; K59.09 Other constipation; F79 Unspecified intellectual disabilities; E11.29 Type 2 diabetes mellitus with other diabetic kidney complication; Z79.899 Other long term (current) drug therapy | CPT/HCPCS: 99212 ==

== ENCOUNTER 2020-08-31 13:51 | Inpatient (IN) | payer MEDICARE, MEDICAID, SELFPAY ==
--- NOTE | ~2020-08-31 | US_ITS ---
EXAMINATION: ABDOMINAL ULTRASOUND LIMITED CLINICAL INFORMATION: Transaminitis. COMPARISON: Same day abdominal and pelvic CT. TECHNIQUE: Real-time imaging of the right upper quadrant abdominal viscera. FINDINGS: PANCREAS: The visualized pancreatic head and body are normal in appearance. The remainder of the pancreas is obscured from visualization by the overlying bowel gas. LIVER: The liver is of normal size and echogenicity without focal lesions nor intrahepatic biliary ductal dilation. GALLBLADDER: Normal. The gallbladder is physiologically distended without evidence of stones, sludge, polyps, wall thickening or pericholecystic fluid. COMMON BILE DUCT: Normal in caliber measuring 0.2 cm in diameter. RIGHT KIDNEY: Normal. No hydronephrosis. No renal calculi or focal parenchymal lesions. The kidney measures 9.9 cm in maximum dimension. FREE FLUID: None. US/US abdomen limited IMPRESSION: Unremarkable limited right upper quadrant ultrasound.
--- NOTE | ~2020-08-31 | CT_ITS ---
EXAMINATION: CT HEAD WITHOUT CONTRAST CLINICAL INFORMATION: Weakness COMPARISON: None TECHNIQUE: Contiguous axial imaging was performed from the skull base to vertex without intravenous administration of contrast. This CT examination was performed using dose optimization techniques as appropriate, variously including the following: *Automated exposure control *Adjustment of mA and/or kV according to patient size (this includes techniques or standardized protocols for targeted exams where dose is matched to indication/reason for exam; i.e. extremities or head) *Use of iterative reconstruction technique DLP: 828 mGy-cm FINDINGS: There is no evidence of acute intracranial hemorrhage or territorial infarction. No abnormal mass effect or midline shift is appreciated. [place]ijer[place]-white differentiation is well preserved. No extra-axial fluid collections. The ventricular system and cortical sulci are mildly prominent, consistent with age-appropriate volume loss. There are mild areas of low density in the periventricular and subcortical white matter, most consistent with sequelae of microvascular ischemic change. The osseous structures and soft tissues are normal. There are calcifications of the cavernous internal carotid arteries. The visualized paranasal sinuses and mastoid air cells are well aerated. Small osteoma of the left frontal sinus. CT/CT head/brain wo con IMPRESSION: Chronic microvascular ischemic changes with no CT evidence of acute intracranial abnormality.
--- NOTE | ~2020-08-31 | CT_ITS ---
EXAMINATION: CT CHEST WITHOUT CONTRAST CLINICAL INFORMATION: Weakness. Concern for pneumonia. COMPARISON: Chest x-ray 08/31/2020 TECHNIQUE: Multidetector volumetric CT imaging of the chest was done. Axial MIP volume rendering provided. Sagittal and coronal reformatted images were obtained. This CT examination was performed using dose optimization techniques as appropriate, variously including the following: *Automated exposure control *Adjustment of mA and/or kV according to patient size (this includes techniques or standardized protocols for targeted exams where dose is matched to indication/reason for exam; i.e. extremities or head) *Use of iterative reconstruction technique DLP: 183.02 mGy-cm FINDINGS: There is breathing motion which limits study. LUNGS: There are patchy areas of groundglass and hazy alveolar opacities in the right lower lobe. Imaging features can be seen with COVID-19 pneumonia. Although these features are nonspecific and can be occur with a variety of infectious and noninfectious processes. No suspicious lung nodules. No interstitial lung disease or bronchiectasis. Central bronchial airways are open. MEDIASTINUM: No mediastinal mass or significant lymphadenopathy. The heart size is normal. There is no pericardial effusion. PLEURA: There is no pleural effusion. No pleural mass or thickening. AXILLA: No lymphadenopathy. UPPER ABDOMEN: Unremarkable. OSSEOUS STRUCTURES: Unremarkable. CT/CT chest wo con IMPRESSION: There are patchy areas of groundglass and hazy alveolar opacities in the right lower lobe. Imaging features can be seen with COVID-19 pneumonia. Although these features are nonspecific and can be occur with a variety of infectious and noninfectious processes.
--- NOTE | ~2020-08-31 | NM_ITS ---
EXAMINATION: NM LUNG IMAGE PERFUSION CLINICAL INFORMATION: Hypoxia. COMPARISON: Chest x-ray 08/31/2020 TECHNIQUE: Following IV 4.0 mCi of 99m Tc MAA, imaging of both lungs were obtained multiple projections. Ventilation study was not performed. FINDINGS: On perfusion imaging there is a heterogenous activity seen throughout the lungs with mild nonsegmental defect along right lower lobe posterior segment in the region of right hilum. Also visualized is a nonsegmental defect in both lung apices are decreased perfusion but no defect. NM/NM pul perfusion IMPRESSION: Findings suggestive of low probability for PE.
--- NOTE | ~2020-08-31 | CT_ITS ---
EXAMINATION: CT ABDOMEN AND PELVIS WITHOUT CONTRAST CLINICAL INFORMATION: Weakness. Colitis. COMPARISON: Previous CT of the abdomen and pelvis April 2019 TECHNIQUE: Multidetector volumetric imaging was performed from the superior aspect of the liver through the pubic symphysis. Sagittal and coronal reformatted images were obtained on the technologist's workstation. This CT examination was performed using dose optimization techniques as appropriate, variously including the following: *Automated exposure control *Adjustment of mA and/or kV according to patient size (this includes techniques or standardized protocols for targeted exams where dose is matched to indication/reason for exam; i.e. extremities or head) *Use of iterative reconstruction technique exam is limited due to lack of IV contrast and paucity of fat. DLP: 407 mGy-cm FINDINGS: LUNG BASES: The visualized lung bases are unremarkable. LIVER, GALLBLADDER, AND BILIARY TREE: The liver is normal in size, shape, and attenuation. No focal hepatic lesion or biliary ductal dilatation is present. The gallbladder is unremarkable with no evidence of radiopaque gallstones, gallbladder wall thickening, or obvious pericholecystic inflammatory changes. PANCREAS: Unremarkable. SPLEEN: Unremarkable. ADRENAL GLANDS: Unremarkable. KIDNEYS AND URETERS: The kidneys are normal in size, shape, and attenuation. No hydronephrosis, hydroureter, or calculi seen. No perinephric stranding. BLADDER: The bladder is not optimally distended. There may be mild diffuse bladder wall thickening. GASTROINTESTINAL TRACT: There is stool throughout the colon suggestive of constipation. No evidence of colitis is seen. There are no dilated loops of bowel to suggest obstruction. Small bowel is difficult to evaluate due to lack of contrast and paucity of fat. There is question of a wall thickening of the proximal stomach versus under distention. ABDOMINAL WALL: No significant hernia is appreciated. LYMPH NODES: Normal. VASCULAR: There is evidence of atherosclerotic disease. PELVIC VISCERA: Unremarkable. OSSEOUS STRUCTURES: The bones are osteopenic. There are degenerative changes of the spine. CT/CT abdomen pelvis wo con IMPRESSION: Limited exam. Constipation. No evidence of colitis or obstruction. Question mild diffuse bladder wall thickening.
--- NOTE | ~2020-08-31 | XR_ITS ---
EXAMINATION: XR CHEST CLINICAL INFORMATION: Cough and fever. Evaluate for pneumonia. COMPARISON: Previous chest x-ray most recent May 2020 TECHNIQUE: Frontal view of the chest was obtained. FINDINGS: The cardiac and mediastinal contours are normal. The lungs are clear. There is no pleural effusion or pneumothorax. There are degenerative changes of the spine. XR/XR chest 1V IMPRESSION: No evidence for acute disease in the chest.
[2020-08-31 14:21] VITALS: BP 147/82; PULSE 80; RESP 16; TEMP 35.9; O2SAT 96; BMI 15.0
[2020-08-31 14:31] VITALS: O2SAT 96
--- NOTE | 2020-08-31 14:39 | ED_ITS ---
HPI - General Adult General Chief complaint: Failure to Thrive Stated complaint: weakness, ams Time Seen by Provider: 08/31/20 13:56 Source: family and EMS Mode of arrival: EMS History of Present Illness HPI narrative: Patient brought to ED for evaluation of weakness, fever, and wet cough. As per EMS patient was found to be hypoxic with O2 saturation 88%. Patient is not on 2 L 96%. As per EMS family states for the past year patient has been losing weight and recently failed swallow test. Patient has not been eating much. Patient baseline dementia and nonverbal but has seen more lethargic the past couple days. Related Data Home Medications Medication Instructions Recorded Confirmed fluoxetine 1 cap PO QAM 03/11/20 07/19/20 aspirin 81 mg chewable tablet 1 tab PO QAM 04/21/20 07/19/20 sennosides 8.6 mg tablet 17.2 mg PO BEDTIME PRN 05/11/20 07/19/20 valsartan 320 mg tablet 160 mg PO QAM tab 07/19/20 trazodone 50 mg tablet 50 mg PO BEDTIME PRN 08/31/20 Previous Rx's Medication Instructions Recorded omega-3 fatty acids-fish oil 340 1 cap PO BEDTIME #30 cap 03/25/20 mg-1,000 mg capsule magnesium citrate 150 ml PO ONCE PRN #296 ml 04/12/20 omeprazole 20 mg capsule,delayed 20 mg PO QAM 30 Days #30 cap 06/11/20 release cholecalciferol (vitamin D3) 50 50 mcg PO DAILY #90 cap 07/12/20 mcg (2,000 unit) capsule megestrol 400 mg/10 mL (10 mL) 200 mg PO BID 30 Days #300 ml 08/10/20 oral suspension metoprolol succinate 25 mg 25 mg PO QAM #90 tab 08/14/20 tablet,extended release 24 hr dapagliflozin 10 mg tablet 10 mg PO QAM #90 tab 08/16/20 polyethylene glycol 3350 17 17 g PO DAILY 1 Days #238 g 08/16/20 gram/dose oral powder Allergies Allergy/AdvReac Type Severity Reaction Status Date / Time diatrizoate sodium Allergy Unknown HIVES Verified 07/19/20 11:38 [From HYPAQUE] Iodinated Contrast Media Allergy Unknown HIVES Verified 07/19/20 11:38 [IV Dye, Iodine Containing] penicillin V Allergy Unknown Hives Verified 07/19/20 11:38 Penicillins [PENICILLINS] Allergy Unknown RASH Verified 07/19/20 11:38 dulaglutide [Trulicity] AdvReac Unknown abdominal Verified 07/19/20 11:38 pain Review of Systems Review of Systems: Dementia [facility] Past Medical History Medical History (Updated 08/31/20 @ 20:17 by CHASIDY Gay) Benign essential hypertension Dementia Depression Developmental delay, mild Dyslipidemia Essential hypertension Gastric ulcer without hemorrhage or perforation History of Helicobacter pylori infection Insomnia Mixed hyperlipidemia Proteinuria Skin sore Tubular adenoma 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 Unexplained weight loss Unsteady gait Vitamin D deficiency Surgical History History of colonoscopy Hx of endoscopy Family History Family History Father Hypertension CVD (cardiovascular disease) Mother Hypertension Diabetes Cancer Social History Social History Household Members: None Housing: Apartment Alcohol intake: never Smoking Status: Unknown if ever smoked Use of substances other than those prescribed or required for medical reasons: No Advance Directives: No Advance Directives Information Provided: Yes Current occupational status: disabled Physical Exam Vital Signs: Vital Signs: Last Vital Signs Temp 97.6 F 08/31/20 17:26 Pulse 86 08/31/20 19:31 Resp 14 08/31/20 19:31 BP 140/79 H 08/31/20 19:31 Pulse Ox 99 08/31/20 19:31 Oxygen Flow Rate 2 08/31/20 14:31 Body Mass Index 15.0 Const: Other: Lethargic. HENMT: Head: Yes normal to inspection, Yes No palpable skull fracture present, Yes normocephalic, Yes atraumatic and Yes abrasion Eyes: General: appearance normal, both eyes and all related structures Neck: Neck: Yes normal visual inspection, Yes full ROM, Yes no lymphadenop athy, Yes no meningeal signs, Yes trachea midline, Yes supple and No tender Chest: Chest palpation & inspection: normal inspection of the chest and normal palpation of entire chest wall Resp: Effort & Inspection: normal respiratory effort and able to speak in complete sentences Auscultation: diminished lung sounds Cardio: Jugular venous distension: no JVD Heart sounds: S1 normal heart sound present and S2 normal heart sound present GI: Other: Patient is very thin and cachectic like Inspection: Yes normal to inspection and No abdominal wall ecchymosis Palpation (GI): Soft to palpation, not firm, nontender, no guarding and not rigid : General: No CVA tenderness and Yes no CVA tenderness Back/Spine/Pelvis: Back: no CVA tenderness, No CVA tenderness and No back tenderness Skin: General skin exam: no rashes or lesions noted and elasticity normal Neuro: Other: Baseline dementia and nonverbal General: no meningeal signs and CN's II-XI intact bilaterally Cranial nerves: Yes CN's II-XII intact bilaterally Extrem: General: Yes normal to inspection and Yes full ROM Psych: Other: Skinny. Cachectic like. Appearance: grossly normal and well kempt Course Course Course Narrative: Will do rectal temperature checked. Patient will be evaluated for possible infectious source. Patient had chest x-ray. Repeat COVID swab. Patient given fluids. Will speak with family. Reevaluation(s) Reevaluation #1: Spoke with patient's niece Polina Vázquez ) if states patient has been lethargic, not opening eyes, coughing, and refusing to eat. She states at baseline patient is nonverbal and the most he could do is wa h television on the bed. Patient does not really move his extremities. She states since yesterday patient does not want to eat and has kept his eyes closed and seems different. Patient chest x-ray normal and negative for white blood cell count elevation. Patient will have head CT, chest CT can, and abdominal CT without IV contrast due to allergy with IV contrast. Looking for signs of infection. Also add EKG troponin. Miss Fish sentinel states his sister has custody and does not want DNI/DNR. Will try to contact sister. Reevaluation #2: COVID swab came back negative. But chest CT shows bilateral ground-glass pneumonia. Spoke with valerie Fish on the phone she states patient had COVID in May. Patient will be started on antibiotics. CT of abdomen shows bladder wall thickening may indicate UTI. Head CT came back normal Reevaluation #3: Spoke with hospitalist Dr. Melendrez who accepted the case. Patient will be admitted for pneumonia and failure to thrive. Medical Decision Making MDM Narrative Medical decision making narrative: Pneumonia Lab Data Result diagrams: 08/31/20 14:58 08/31/20 14:57 Labs: Lab Results 08/31/20 08/31/20 08/31/20 Range/Units 14:57 14:58 14:58 WBC 6.0 (4.8-10.8) X10*3/uL RBC 5.17 (4.60-5.80) X10*6/uL Hgb 14.1 (14.0-18.0) g/dl Hct 44.8 (42-52) % MCV 86.7 (80-98) fL MCH 27.3 (27.0-33.0) pg MCHC 31.5 (31.0-36.0) g/dl RDW 13.6 (11.0-16.0) % Plt Count 142 L D (160-400) X10*3/uL MPV 10.4 (9.4-12.4) fL Immature Gran % (Auto) 0.2 (0.0-0.4) % Neut % (Auto) 71.8 (45-73) % Lymph % (Auto) 23.1 (20-40) % Kings % (Auto) 4.7 (2-11) % Eos % (Auto) 0.0 (0-4) % Baso % (Auto) 0.2 (0-2) % Lymph # (Auto) 1.4 (1.2-4.9) X10*3/uL Kings # (Auto) 0.3 (0.1-1.2) X10*3/uL Eos # (Auto) 0.0 (0.0-0.4) X10*3/uL Baso # (Auto) 0.0 (0.0-0.2) X10*3/uL Abs Immat Gran (auto) 0.01 (0.00-0.03) X10*3/uL Absolute Neuts (auto) 4.3 (2.0-8.3) X10*3/uL Absolute Nucleated RBC 0.000 (0.0-0.012) X10*3/uL Nucleated RBC % (auto) 0.0 (0.0-0.2) /100WBC PT 12.5 (10.8-13.0) SEC INR 1.1 (0.9-1.1) APTT 35.2 (24.1-38.0) SEC Sodium 140 (135-145) mmol/L Potassium 4.4 (3.3-5.1) mmol/L Chloride 102 (96-108) mmol/L Carbon Dioxide 29 (22-29) mmol/L Anion Gap 13 (12-20) BUN 26 H (9-16) mg/dL Creatinine 0.72 (0.5-1.4) mg/dL Estim Creat Clear Calc 57.4 Estimated GFR > 60 Random Glucose 86 (60-115) mg/dL Lactic Acid (0.5-2.0) mmol/L Calcium 9.9 (8.4-10.2) mg/dL Magnesium 2.2 (1.6-2.6) mg/dL Total Bilirubin 1.2 H (0.0-1.0) mg/dL AST 57 H (5-37) U/L ALT 305 H (0-40) U/L Alkaline Phosphatase 157 H D (39-117) U/L Ammonia (13-55) umol/L Total Creatine Kinase (38-174) U/L Troponin I High Sens (<3.5-35.0) ng/L Total Protein 6.9 (6.5-8.0) g/dL Albumin 4.3 (3.5-5.0) g/dL Urine Color Urine Appearance Urine pH (5.0-8.0) Ur Specific [place] (1.005-1.025) Urine Protein (NEG-TRACE) MG/DL Urine Glucose (UA) (NEG) MG/DL Urine Ketones (NEG) MG/DL Urine Blood (NEG) Urine Nitrite (NEG) Ur Leukocyte Esterase (NEG) Urine RBC (0) /HPF Urine WBC (0-4) /HPF Ur Squamous Epith Cells /LPF Urine Bacteria /LPF Coronavirus (PCR) (Negative) Influenza Type A (PCR) (Negative) Influenza Type B (PCR) (Negative) RSV RNA Qual (PCR) (Negative) 08/31/20 08/31/20 08/31/20 Range/Units 14:59 16:03 16:03 WBC (4.8-10.8) X10*3/uL RBC (4.60-5.80) X10*6/uL Hgb (14.0-18.0) g/dl Hct (42-52) % MCV (80-98) fL MCH (27.0-33.0) pg MCHC (31.0-36.0) g/dl RDW (11.0-16.0) % Plt Count (160-400) X10*3/uL MPV (9.4-12.4) fL Immature Gran % (Auto) (0.0-0.4) % Neut % (Auto) (45-73) % Lymph % (Auto) (20-40) % Kings % (Auto) (2-11) % Eos % (Auto) (0-4) % Baso % (Auto) (0-2) % Lymph # (Auto) (1.2-4.9) X10*3/uL Kings # (Auto) (0.1-1.2) X10*3/uL Eos # (Auto) (0.0-0.4) X10*3/uL Baso # (Auto) (0.0-0.2) X10*3/uL Abs Immat Gran (auto) (0.00-0.03) X10*3/uL Absolute Neuts (auto) (2.0-8.3) X10*3/uL Absolute Nucleated RBC (0.0-0.012) X10*3/uL Nucleated RBC % (auto) (0.0-0.2) /100WBC PT (10.8-13.0) SEC INR (0.9-1.1) APTT (24.1-38.0) SEC Sodium (135-145) mmol/L Potassium (3.3-5.1) mmol/L Chloride (96-108) mmol/L Carbon Dioxide (22-29) mmol/L Anion Gap (12-20) BUN (9-16) mg/dL Creatinine (0.5-1.4) mg/dL Estim Creat Clear Calc Estimated GFR Random Glucose (60-115) mg/dL Lactic Acid 1.6 (0.5-2.0) mmol/L Calcium (8.4-10.2) mg/dL Magnesium (1.6-2.6) mg/dL Total Bilirubin (0.0-1.0) mg/dL AST (5-37) U/L ALT (0-40) U/L Alkaline Phosphatase (39-117) U/L Ammonia (13-55) umol/L Total Creatine Kinase (38-174) U/L Troponin I High Sens < 3.5 D (<3.5-35.0) ng/L Total Protein (6.5-8.0) g/dL Albumin (3.5-5.0) g/dL Urine Color Urine Appearance Urine pH (5.0-8.0) Ur Specific [place] (1.005-1.025) Urine Protein (NEG-TRACE) MG/DL Urine Glucose (UA) (NEG) MG/DL Urine Ketones (NEG) MG/DL Urine Blood (NEG) Urine Nitrite (NEG) Ur Leukocyte Esterase (NEG) Urine RBC (0) /HPF Urine WBC (0-4) /HPF Ur Squamous Epith Cells /LPF Urine Bacteria /LPF Coronavirus (PCR) NEGATIVE (Negative) Influenza Type A (PCR) NEGATIVE (Negative) Influenza Type B (PCR) NEGATIVE (Negative) RSV RNA Qual (PCR) NEGATIVE (Negative) 08/31/20 08/31/20 08/31/20 Range/Units 16:03 16:03 17:04 WBC (4.8-10.8) X10*3/uL RBC (4.60-5.80) X10*6/uL Hgb (14.0-18.0) g/dl Hct (42-52) % MCV (80-98) fL MCH (27.0-33.0) pg MCHC (31.0-36.0) g/dl RDW (11.0-16.0) % Plt Count (160-400) X10*3/uL MPV (9.4-12.4) fL Immature Gran % (Auto) (0.0-0.4) % Neut % (Auto) (45-73) % Lymph % (Auto) (20-40) % Kings % (Auto) (2-11) % Eos % (Auto) (0-4) % Baso % (Auto) (0-2) % Lymph # (Auto) (1.2-4.9) X10*3/uL Kings # (Auto) (0.1-1.2) X10*3/uL Eos # (Auto) (0.0-0.4) X10*3/uL Baso # (Auto) (0.0-0.2) X10*3/uL Abs Immat Gran (auto) (0.00-0.03) X10*3/uL Absolute Neuts (auto) (2.0-8.3) X10*3/uL Absolute Nucleated RBC (0.0-0.012) X10*3/uL Nucleated RBC % (auto) (0.0-0.2) /100WBC PT (10.8-13.0) SEC INR (0.9-1.1) APTT (24.1-38.0) SEC Sodium (135-145) mmol/L Potassium (3.3-5.1) mmol/L Chloride (96-108) mmol/L Carbon Dioxide (22-29) mmol/L Anion Gap (12-20) BUN (9-16) mg/dL Creatinine (0.5-1.4) mg/dL Estim Creat Clear Calc Estimated GFR Random Glucose (60-115) mg/dL Lactic Acid (0.5-2.0) mmol/L Calcium (8.4-10.2) mg/dL Magnesium (1.6-2.6) mg/dL Total Bilirubin (0.0-1.0) mg/dL AST (5-37) U/L ALT (0-40) U/L Alkaline Phosphatase (39-117) U/L Ammonia 28 (13-55) umol/L Total Creatine Kinase 125 D (38-174) U/L Troponin I High Sens (<3.5-35.0) ng/L Total Protein (6.5-8.0) g/dL Albumin (3.5-5.0) g/dL Urine Color YELLOW Urine Appearance HAZY Urine pH 5.5 (5.0-8.0) Ur Specific [place] 1.025 (1.005-1.025) Urine Protein NEG (NEG-TRACE) MG/DL Urine Glucose (UA) 500 H (NEG) MG/DL Urine Ketones NEG (NEG) MG/DL Urine Blood NEG (NEG) Urine Nitrite NEG (NEG) Ur Leukocyte Esterase TRACE H (NEG) Urine RBC 10-14 H (0) /HPF Urine WBC 0-2 (0-4) /HPF Ur Squamous Epith Cells TRACE /LPF Urine Bacteria 3+ /LPF Coronavirus (PCR) (Negative) Influenza Type A (PCR) (Negative) Influenza Type B (PCR) (Negative) RSV RNA Qual (PCR) (Negative) ECG Data Interpretation: Normal sinus rhythm. Ventricular rate 75. Pr interval 184. QRS 84. QTC 477. Negative STEMI Discharge Plan Discharge Clinical Impression: Pneumonia, Adult failure to thrive Prescriptions: No Action Fish Oil 340-1,000 mg capsule 1 cap PO BEDTIME Qty: 30 RF: 6 magnesium citrate [Citrate of Magnesia] Solution 150 ml PO ONCE PRN (Reason: constipation) Qty: 296 RF: 0 omeprazole 20 mg capsule,delayed release(DR/EC) 20 mg PO QAM 30 Days Qty: 30 RF: 2 cholecalciferol (vitamin D3) 50 mcg (2,000 unit) capsule 50 mcg PO DAILY Qty: 90 RF: 1 megestrol 400 mg/10 mL (10 mL) suspension 200 mg PO BID 30 Days Qty: 300 RF: 0 metoprolol succinate 25 mg tablet extended release 24 hr 25 mg PO QAM Qty: 90 RF: 0 polyethylene glycol 3350 [Miralax] 17 gram/dose powder 17 g PO DAILY 1 Days Qty: 238 RF: 0 dapagliflozin [Farxiga] 10 mg tablet 10 mg PO QAM Qty: 90 RF: 0 trazodone 50 mg tablet 50 mg PO BEDTIME PRN (Reason: Sleep) RF: 0 fluoxetine 10 mg capsule 1 cap PO QAM RF: 0 aspirin 81 mg tablet,chewable 1 tab PO QAM RF: 0 valsartan 320 mg tablet 160 mg PO QAM RF: 0 sennosides 8.6 mg tablet 17.2 mg PO BEDTIME PRNRF: 0
[2020-08-31] MEDS: 0.9 % Sodium Chloride 1,000 ML 999 ML IV (14:57)
[2020-08-31 15:15] LABS: MANUAL DIFF FLAG NO
[2020-08-31 15:16] LABS: Basophils Percent Auto 0.2 % (0-2); Hematocrit 44.8 % (42-52); Hemoglobin 14.1 g/dl (14.0-18.0); Imm Gran Abs Auto 0.01 X10*3/uL (0.00-0.03); Imm Gran Pct Auto 0.2 % (0.0-0.4); Lymphocytes Absolute Auto 1.4 X10*3/uL (1.2-4.9); Lymphocytes Percent Auto 23.1 % (20-40); Mean Corpuscular HGB Conc 31.5 g/dl (31.0-36.0); Mean Corpuscular Hemoglobin 27.3 pg (27.0-33.0); Mean Corpuscular Volume 86.7 fL (80-98); Mean Platelet Volume 10.4 fL (9.4-12.4); Monocytes Absolute Auto 0.3 X10*3/uL (0.1-1.2); Monocytes Percent Auto 4.7 % (2-11); Neutrophils Absolute Auto 4.3 X10*3/uL (2.0-8.3); Neutrophils Percent Auto 71.8 % (45-73); Platelet Count 142 X10*3/uL (160-400); Red Blood Count 5.17 X10*6/uL (4.60-5.80); Red Cell Distribution Width 13.6 % (11.0-16.0)
[2020-08-31 15:26] LABS: INTERNATIONAL NORM RATIO 1.1 (0.9-1.1); Prothrombin Time 12.5 SEC (10.8-13.0)
[2020-08-31 15:29] LABS: Partial Thromboplastin Time 35.2 SEC (24.1-38.0)
--- NOTE | 2020-08-31 15:35 | ECG_ITS ---
Test Reason : FAILURE TO THRIVE Blood Pressure : / mmHG Vent. Rate : 076 BPM Atrial Rate : 076 BPM P-R Int : 182 ms QRS Dur : 090 ms QT Int : 446 ms P-R-T Axes : 074 063 077 degrees QTc Int : 501 ms Poor data quality Normal sinus rhythm Possible Inferior infarct , age undetermined Cannot rule out Anterior infarct , age undetermined Prolonged QT Abnormal ECG When compared with ECG of 13-MAY-2020 10:20, Poor quality of EKG on prior EKG prevents comparison Referred By: Jose Morton Electronically Signed By:JOSAFAT SAHA MD
[2020-08-31 15:55] LABS: Influenza A PCR NEGATIVE (Negative); Influenza B PCR NEGATIVE (Negative); Resp Syncy Virus RNA Qual PCR NEGATIVE (Negative); SARS COV2 PCR INHOUSE NEGATIVE (Negative)
[2020-08-31 16:01] LABS: Alanine Aminotransferase 305 U/L (0-40); Albumin Level 4.3 g/dL (3.5-5.0); Alkaline Phosphatase 157 U/L (39-117); Anion Gap 13 (12-20); Aspartate Amino Transferase 57 U/L (5-37); Bilirubin Total 1.2 mg/dL (0.0-1.0); Blood Urea Nitrogen 26 mg/dL (9-16); Calcium 9.9 mg/dL (8.4-10.2); Carbon Dioxide 29 mmol/L (22-29); Chloride 102 mmol/L (96-108); Creatinine Clr Calc Pharmacy 57.4; Estimated Glomerular Filt Rate > 60; Glucose Random 86 mg/dL (60-115); Potassium 4.4 mmol/L (3.3-5.1); Sodium 140 mmol/L (135-145); Total Protein 6.9 g/dL (6.5-8.0)
[2020-08-31 16:11] VITALS: BP 143/74; PULSE 74; RESP 20; TEMP 35.7; O2SAT 100
[2020-08-31 16:19] LABS: Magnesium 2.2 mg/dL (1.6-2.6)
[2020-08-31 16:35] LABS: Ammonia 28 umol/L (13-55)
[2020-08-31 16:40] LABS: Lactic Acid 1.6 mmol/L (0.5-2.0)
[2020-08-31 16:50] LABS: Troponin-I High Sensitivity < 3.5 ng/L (<3.5-35.0)
[2020-08-31 17:13] LABS: Glucose Urine UA 500 MG/DL (NEG); Leukocyte Esterase Urine TRACE (NEG); Nitrite Urine NEG (NEG); PH 5.5 (5.0-8.0); Specific Gravity - Urine 1.025 (1.005-1.025); UACC Culture Trigger YES; Urine Blood NEG (NEG); Urine Ketones NEG (NEG); Urine Protein NEG (NEG-TRACE)
[2020-08-31] MEDS: cefTRIAXone sodium 1 GM in 0.9 % Sodium Chloride 50 ML IV (17:25)
[2020-08-31 17:26] VITALS: TEMP 36.4
[2020-08-31 17:30] LABS: Appearance Urine HAZY; Color Urine YELLOW
[2020-08-31 17:45] LABS: Bacteria Urine 3+ /LPF; Squamous Epithelial Cell Urine TRACE /LPF; WBC Urine 0-2 /HPF (0-4)
[2020-08-31 18:00] VITALS: PULSE 75; RESP 18; O2SAT 96
[2020-08-31] MEDS: Azithromycin 500 MG in 0.9 % Sodium Chloride 250 ML 125 MG IV (18:28)
[2020-08-31 19:31] VITALS: BP 140/79; PULSE 86; RESP 14; O2SAT 99
--- NOTE | 2020-08-31 21:01 | P.HPHOSP_ITS ---
History of Present Illness Date of Service: 08/31/20 Chief Complaint: Generalized weakness 69-year-old male with a past medical history of hypertension, hyperlipidemia, diabetes, dementia, depression, developmental delay-has guardian, lives with the family, weight loss presented to the hospital with a chief complaint of generalized weakness/lethargy. I spoke to the patient's Neice tosha knees and patient's guardian anna; Reportedly patient is baseline bed-bound and nonverbal; and has been not eating well lately was on megestrol acetate, takes pills when crushed; on dysphagia diet; failed speech and swallow eval about couple weeks ago and has plans to follow with Gastroenterology for possible G-tube placement. At baseline patient usually watches TV but over the past 2 days he is not watching TV and appeared more lethargic and also has decreased intake. Hence decided to bottom to the ER for further evaluation. Also complained of subjective fevers. Denied any diarrhea or vomitings. Mentioned that patient had COVID-19 in May. Family reported that patient had cough. Review of all other systems is negative except mentioned above ER course: For ER team patient noted to be contracted, but alert and awake, afebrile, patient was hypoxic to 88% on room air, placed on 2 L of supplemental oxygen with saturation 96%. Patient does not appear to be in distress. Lab showed microscopic hematuria, transaminitis, CT chest noncontrast showed pneumonia. Patient given antibiotics. Admitted to the hospital for further management. 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 Unexplained weight loss Unsteady gait Vitamin D deficiency Family History Father Hypertension CVD (cardiovascular disease) Mother Hypertension Diabetes Cancer Surgical History History of colonoscopy Hx of endoscopy Social History (Updated 09/02/20 @ 15:16 by Leigh Farrell) Household Members: Family Housing: House Unable to assess alcohol history related to: Unknown Alcohol intake: never Smoking Status: Never smoker Use of substances other than those prescribed or required for medical reasons: No Currently Displaying Signs/Symptoms of Drug Intoxication Withdrawal: No Advance Directives: No Advance Directives Information Provided: Yes Do you have thoughts of harming others: None Do you have a plan to hurt others: No Plan Recently lost weight without trying: Yes service: No Current occupational status: disabled Meds Allergies Allergy/AdvReac Type Severity Reaction Status Date / Time diatrizoate sodium Allergy Unknown HIVES Verified 07/19/20 11:38 [From HYPAQUE] Iodinated Contrast Media Allergy Unknown HIVES Verified 07/19/20 11:38 [IV Dye, Iodine Containing] penicillin V Allergy Unknown Hives Verified 07/19/20 11:38 Penicillins [PENICILLINS] Allergy Unknown RASH Verified 07/19/20 11:38 dulaglutide [Trulicity] AdvReac Unknown abdominal Verified 07/19/20 11:38 pain Active Medications: Current Medications Generic Name Dose Route Start Last Admin Trade Name Freq PRN Reason Stop Dose Admin Acetaminophen 650 mg 08/31/20 20:53 Acetaminophen Supp 650 Mg Supp.Rect DC Q6H PRN Pain, Mild (Pain Scale 1-3) Aspirin 81 mg 09/01/20 09:00 Aspirin 81 Mg Tab.Chew PO DAILY [facility] Fluoxetine HCl 10 mg 08/31/20 21:00 Fluoxetine Hcl [facility] Dextrose/Sodium Chloride 1,000 mls @ 50 mls/hr 08/31/20 21:00 D51/2ns IVCONT .Q20H [facility] Vancomycin HCl 1,000 mg/ 270 mls @ 270 mls/hr 08/31/20 21:00 Sodium Chloride IV Q12H [facility] Cefepime HCl 1 gm/ Sodium 50 mls @ 100 mls/hr 09/01/20 09:00 Chloride IV Q24H [facility] Insulin Human Lispro 0 unit 08/31/20 21:00 Insulin Lispro 100 Unit/Ml 3 Ml Vial SUBCUT QIDACHS [facility] Protocol Metoprolol Succinate 25 mg 08/31/20 21:00 Metoprolol Succinate Er 25 Mg Tab.Er.24h [facility] Protocol Omeprazole 20 mg 08/31/20 21:00 Omeprazole 20 Mg Capsule.Dr [facility] Pharmacy Consult 1 each 08/31/20 19:47 Consult Rx Perform Med Rec MISCELLANE ONCE PRN Consult order Pharmacy Consult 1 each 08/31/20 20:54 Consult Rx Vancomycin Dosing MISCELLANE DAILY PRN Consult order Senna 17.2 mg 08/31/20 20:53 Sennosides 8.6 Mg Tablet PO BEDTIME PRN Constipation Sodium Chloride 3 ml 09/01/20 00:00 0.9 % Sodium Chloride Flush 3 Ml Syringe IVFLUSH QSHIFT [facility] Trazodone HCl 50 mg 08/31/20 20:58 Trazodone Hcl 50 Mg Tablet PO BEDTIME PRN Sleep Valsartan 160 mg 08/31/20 21:00 Valsartan 160 Mg Tablet PO QAM [facility] Protocol Vitamin D 50 mcg 09/01/20 09:00 Cholecalciferol (Vitamin D3) 25 Mcg Tablet PO DAILY [facility] Home Medications Medication Instructions Recorded Confirmed Last Taken Type fluoxetine 1 cap PO QAM 03/11/20 08/31/20 Unknown History aspirin 81 mg chewable tablet 1 tab PO QAM 04/21/20 08/31/20 Unknown History valsartan 320 mg tablet 160 mg PO QAM tab 07/19/20 08/31/20 Unknown History fenofibrate nanocrystallized 1 tab PO BEDTIME 08/31/20 08/31/20 Unknown History rosuvastatin 1 tab PO BEDTIME 08/31/20 08/31/20 Unknown History Physical Exam Vital Signs and Narrative: Vital Signs: Last Vital Signs Temp 97.6 F 08/31/20 17:26 Pulse 86 08/31/20 19:31 Resp 14 08/31/20 19:31 BP 140/79 H 08/31/20 19:31 Pulse Ox 99 08/31/20 19:31 Oxygen Flow Rate 2 08/31/20 14:31 Body Mass Index 15.0 Gen: Appears be in no acute distress; contracted, cachectic; on supplemental oxygen HEENT: NCAT, Moist mucosa. Pulmonary: Course breath sounds, fair air entry CVS: Normal S1-S2 Abdomen: BS+, Soft, Nontender Extremities: Warm well perfused Neuro: Alert and awake. Nonverbal Integumentary: Did not appreciate any decubitus ulcers; examined along with the RN. Results Labs CBC and Chem 7: 09/02/20 05:53 09/02/20 05:53 Labs: Laboratory Results - last 24 hr 04/27/21 04/27/21 04/27/21 14:57 14:58 14:58 MCV 86.7 MCH 27.3 MCHC 31.5 RDW 13.6 Plt Count 142 L D MPV 10.4 Immature Gran % (Auto) 0.2 Neut % (Auto) 71.8 Lymph % (Auto) 23.1 [place] % (Auto) 4.7 Eos % (Auto) 0.0 Baso % (Auto) 0.2 Lymph # (Auto) 1.4 [place] # (Auto) 0.3 Eos # (Auto) 0.0 Baso # (Auto) 0.0 Abs Immat Gran (auto) 0.01 Absolute Neuts (auto) 4.3 Absolute Nucleated RBC 0.000 Nucleated RBC % (auto) 0.0 PT 12.5 INR 1.1 APTT 35.2 Anion Gap 13 Estim Creat Clear Calc 57.4 Estimated GFR > 60 Random Glucose 86 Lactic Acid Calcium 9.9 Magnesium 2.2 Total Bilirubin 1.2 H AST 57 H ALT 305 H Alkaline Phosphatase 157 H D Ammonia Total Creatine Kinase Troponin I High Sens Total Protein 6.9 Albumin 4.3 Urine Color Urine Appearance Urine pH Ur Specific [place] Urine Protein Urine Glucose (UA) Urine Ketones Urine Blood Urine Nitrite Ur Leukocyte Esterase Urine RBC Urine WBC Ur Squamous Epith Cells Urine Bacteria Coronavirus (PCR) Influenza Type A (PCR) Influenza Type B (PCR) RSV RNA Qual (PCR) 08/31/20 08/31/20 08/31/20 14:59 16:03 16:03 MCV MCH MCHC RDW Plt Count MPV Immature Gran % (Auto) Neut % (Auto) Lymph % (Auto) [place] % (Auto) Eos % (Auto) Baso % (Auto) Lymph # (Auto) [place] # (Auto) Eos # (Auto) Baso # (Auto) Abs Immat Gran (auto) Absolute Neuts (auto) Absolute Nucleated RBC Nucleated RBC % (auto) PT INR APTT Anion Gap Estim Creat Clear Calc Estimated GFR Random Glucose Lactic Acid 1.6 Calcium Magnesium Total Bilirubin AST ALT Alkaline Phosphatase Ammonia Total Creatine Kinase Troponin I High Sens < 3.5 D Total Protein Albumin Urine Color Urine Appearance Urine pH Ur Specific [place] Urine Protein Urine Glucose (UA) Urine Ketones Urine Blood Urine Nitrite Ur Leukocyte Esterase Urine RBC Urine WBC Ur Squamous Epith Cells Urine Bacteria Coronavirus (PCR) NEGATIVE Influenza Type A (PCR) NEGATIVE Influenza Type B (PCR) NEGATIVE RSV RNA Qual (PCR) NEGATIVE 08/31/20 08/31/20 08/31/20 16:03 16:03 17:04 MCV MCH MCHC RDW Plt Count MPV Immature Gran % (Auto) Neut % (Auto) Lymph % (Auto) [place] % (Auto) Eos % (Auto) Baso % (Auto) Lymph # (Auto) [place] # (Auto) Eos # (Auto) Baso # (Auto) Abs Immat Gran (auto) Absolute Neuts (auto) Absolute Nucleated RBC Nucleated RBC % (auto) PT INR APTT Anion Gap Estim Creat Clear Calc Estimated GFR Random Glucose Lactic Acid Calcium Magnesium Total Bilirubin AST ALT Alkaline Phosphatase Ammonia 28 Total Creatine Kinase 125 D Troponin I High Sens Total Protein Albumin Urine Color YELLOW Urine Appearance HAZY Urine pH 5.5 Ur Specific [place] 1.025 Urine Protein NEG Urine Glucose (UA) 500 H Urine Ketones NEG Urine Blood NEG Urine Nitrite NEG Ur Leukocyte Esterase TRACE H Urine RBC 10-14 H Urine WBC 0-2 Ur Squamous Epith Cells TRACE Urine Bacteria 3+ Coronavirus (PCR) Influenza Type A (PCR) Influenza Type B (PCR) RSV RNA Qual (PCR) Imaging Radiologist's Impressions: Impressions Chest X-Ray 08/31/20 14:20 IMPRESSION: No evidence for acute disease in the chest. Abdomen/Pelvis CT 08/31/20 15:34 IMPRESSION: Limited exam. Constipation. No evidence of colitis or obstruction. Question mild diffuse bladder wall thickening. Chest CT 08/31/20 15:34 IMPRESSION: There are patchy areas of groundglass and hazy alveolar opacities in the right lower lobe. Imaging features can be seen with COVID-19 pneumonia. Although these features are nonspecific and can be occur with a variety of infectious and noninfectious processes. Head CT 08/31/20 15:34 IMPRESSION: Chronic microvascular ischemic changes with no CT evidence of acute intracranial abnormality. Assessment and Plan (1) Pneumonia: Status: Acute 69-year-old male with a past medical history of hypertension, hyper lipidemia, diabetes, developmental delay, baseline nonverbal and bed-bound presented with generalized weakness/lethargy. Noted to have pneumonia. Toxic metabolic encephalopathy: Supportive care. CT head showed no acute findings. Pneumonia: Hcap. Continue vanc and cefepime. Follow up cultures. Hypoxia: Likely in the setting of pneumonia. But patient is on Megace at home. Will obtain a D-dimer. Will also consider V/Q scan. Adult failure to thrive: Patient has decreased oral intake and weight loss as per the family. Patient is on Magace at home. Severe protein calorie malnutrition: Nutrition consult. Reportedly patient has failed outpatient speech and swallow eval and has plans for G-tube placement. Will consult Gastroenterology. Will also consult speech and Swallow. As per the family patient is on dysphagia diet and pills were given crushed. Transaminitis: Unclear etiology. Will obtain acute hepatitis panel and right upper quadrant ultrasound; CT abdomen showed no acute findings except for constipation. Constipation: Dulcolax suppository p.r.n.. Microscopic hematuria: Patient had urine sample after straight catheterization. Question trauma related. Will defer to the a.m. team to repeat urinalysis in the morning after hydration. Diabetes: Insulin sliding scale DVT prophylaxis: SCD boots Code status: Full code-discussed with the patient's guardian; requested documentations to be brought in to the hospital in the morning.
--- NOTE | 2020-08-31 21:18 | PC.NURSE ---
pt taken to ultra sound.
[2020-08-31 21:19] LABS: D Dimer 278 NG/ML
--- NOTE | 2020-08-31 22:54 | MHC.CM.PN ---
KADE met with pt niece, Polina ([phone]), who speaks Gibralt[place] and helps to care for pt. Pt is cared for by family. Pt sister, Polina grandmother, Trisha Del Angel is the HCP and guardian ([phone]) and is Bel[place]ian speaking only. Guardianship papers on file. No right to place. KADE gave Right to place paperwork to Polina to give to her grandmother. She is aware it needs to be completed and brought to the court. Polina tells KADE that pt has a social welfare research worker from [employer] ([facility]), Fatoumata Das and she will assist Trisha with completing the form tomorrow. Per Polina, her grandmother has been caring for this pt since his mother . Pt is intellectually disabled, is non-verbal, and has dementia. Pt is bed bound. Wears adult diapers and has chronic constipation. Per Polina, medications do not help with this and pt gets enema's to help with constipation. Pt has been failing over past year and recently had swallow evaluation. Pt has had problems swallowing and has been fed pureed foods. Very poor po intake. Polina states pt is being followed by Dr. Emmanuel and family is considering GT to assist with feeding. They have not decided. At this point, the family would like to care for pt at home and are hoping hospitalization will help him to get stronger. Will need to address possible LTC placement with Trisha pending pt condition at discharge. CM to follow for d/c needs.
[2020-08-31] MEDS: vancomycin HCL 500 MG in 0.9 % Sodium Chloride 100 ML 110 MG IV (22:56)
--- NOTE | 2020-08-31 23:02 | PC.NURSE ---
sched med given late due to busy section no lewis and pt off to ultra sound, amdit another pt, with ams arriving with pt.
--- NOTE | 2020-08-31 23:08 | MHC.CM.PN ---
IMM reviewed with Trisha Del Angel-guardian over the telephone ([phone]). Signed per protocol and copy left at bedside per Trisha's request. CM to follow for d/c needs.
[2020-08-31 23:18] LABS: Glucose, Whole Blood 79 mg/dL (60-115)
[2020-09-01] VITALS (10 sets, daily range): BP systolic 102–144; BP diastolic 61–80; PULSE 67–97; RESP 18–23; TEMP 36.1–37.1; O2SAT 93–99; BMI 15.0
[2020-09-01] MEDS: Dextrose 5 % and 0.45 % NaCl 1,000 ML 50 ML IVCONT ×2 (00:32→17:13)
[2020-09-01] MEDS: Omeprazole 20 MG CAPSULE.DR PO (06:11)
--- NOTE | 2020-09-01 07:03 | PC.NURSE ---
Report received from Shreya HAIRSTON, per report daughter is Polina Vázquez and phone number is [phone]
[2020-09-01 07:14] LABS: Glucose, Whole Blood 94 mg/dL (60-115)
[2020-09-01 07:25] LABS: Basophils Percent Auto 0.2 % (0-2); Hemoglobin 14.2 g/dl (14.0-18.0); MANUAL DIFF FLAG SCAN; Mean Corpuscular Hemoglobin 27.6 pg (27.0-33.0); Monocytes Absolute Auto 0.4 X10*3/uL (0.1-1.2); PLT CLUMP 1; Red Blood Count 5.15 X10*6/uL (4.60-5.80); Red Cell Distribution Width 13.4 % (11.0-16.0); SCAN SMEAR FLAG 1
[2020-09-01 07:27] LABS: Hematocrit 43.8 % (42-52); Imm Gran Abs Auto 0.01 X10*3/uL (0.00-0.03); Imm Gran Pct Auto 0.2 % (0.0-0.4); Lymphocytes Absolute Auto 1.2 X10*3/uL (1.2-4.9); Lymphocytes Percent Auto 18.8 % (20-40); Mean Corpuscular HGB Conc 32.4 g/dl (31.0-36.0); Monocytes Percent Auto 6.2 % (2-11); Neutrophils Absolute Auto 4.9 X10*3/uL (2.0-8.3); Neutrophils Percent Auto 74.6 % (45-73); White Blood Count 6.5 X10*3/uL (4.8-10.8)
--- NOTE | 2020-09-01 07:45 | PC.NURSE ---
Plan for pt to go down to nuc med around 830 this morning.
[2020-09-01 07:55] LABS: Platelet Count 119 X10*3/uL (160-400); SLIDE REVIEW VERIFIED
[2020-09-01 08:04] LABS: Anion Gap 18 (12-20); Blood Urea Nitrogen 24 mg/dL (9-16); Calcium 9.1 mg/dL (8.4-10.2); Carbon Dioxide 21 mmol/L (22-29); Chloride 105 mmol/L (96-108); Creatinine Clr Calc Pharmacy 68.9; Estimated Glomerular Filt Rate > 60; Glucose Random 93 mg/dL (60-115); Potassium 4.4 mmol/L (3.3-5.1); Sodium 140 mmol/L (135-145)
[2020-09-01 08:09] LABS: HBS Num1 0.21 mIU/mL (0-7.99); HBc Num1 0.14 S/CO (0.00-0.79); Hepatitis B Core Antibody Nonreactive (Nonreactive); ~Hepatitis B Surface Antibody NONREACTIVE (Nonreactive)
[2020-09-01] MEDS: cefTRIAXone sodium 1 GM in 0.9 % Sodium Chloride 50 ML IV (08:16)
[2020-09-01 08:23] LABS: Alanine Aminotransferase 257 U/L (0-40); Albumin Level 3.9 g/dL (3.5-5.0); Alkaline Phosphatase 131 U/L (39-117); Aspartate Amino Transferase 82 U/L (5-37); Bilirubin Direct 0.5 mg/dL (0.0-0.5); Bilirubin Total 1.2 mg/dL (0.0-1.0); Total Protein 6.2 g/dL (6.5-8.0)
--- NOTE | 2020-09-01 08:33 | PC.NURSE ---
Ceftriaxone hung and running per MAR.
[2020-09-01 08:42] LABS: HBsAGNum1 0.18 S/CO (0.00-0.99); Hepatitis A Antibody IgM 0.24 Index (0-0.79); Hepatitis B Surface Antigen Negative (Negative); ~HepC Num1 0.15 S/CO (0.00-0.79); ~Hepatitis A Antibody IgM Nonreactive (Nonreactive); ~Hepatitis C Antibody Nonreactive (Nonreactive)
--- NOTE | 2020-09-01 08:48 | PC.NURSE ---
Pt transported to [facility] by home health physical therapist.
--- NOTE | 2020-09-01 08:48 | PC.NURSE ---
Per report from Shreya HAIRSTON pt was unable to swallow his morning omeprazole, pt on NPO diet, morning PO meds held to prevent choking incident.
[2020-09-01] MEDS: Doxycycline Hyclate 100 MG in 0.9 % Sodium Chloride 250 ML 166.67 MG IV ×2 (09:36→20:35)
--- NOTE | 2020-09-01 09:38 | PC.NURSE ---
Pt back from [facility], doxy hung and running per jul. Pt turned and repositioned from right side to left side. Slight, blancheable erythema noted to coccyx. Pt bumped up to 3l via NC was 93% on 2l. Satting 94-95% on 3l. No cough noted, nad. Awaiting room on the floor at this time.
--- NOTE | 2020-09-01 10:40 | PC.NURSE ---
This RN spoke with speech therapy after pt was eval'd, the recommendation is for puree diet, pt was able to tolerate thin liquids provided in teaspoon. Per speech a GI consult is necessary to discuss the possible intervention of G-tube placement. Pt NAD. Continues to wait for an inpatient room at this time. NSR on tele, oxygen sat 94% on 3l via NC. No coughing noted, no increased WOB noted.
--- NOTE | 2020-09-01 11:39 | PC.NURSE ---
Call placed to the floor to give report, RN to call back.
[2020-09-01 12:00] LABS: Glucose, Whole Blood 92 mg/dL (60-115)
--- NOTE | 2020-09-01 12:39 | MHC.CLN ---
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
--- NOTE | 2020-09-01 14:17 | HO.PM.IMPN ---
Subjective Subjective Date of Service: 09/01/20 Interval History: Patient seen and evaluated this morning Laying in the bed, looks cachectic and severely malnourished Nonverbal and not interactive but makes eye contact Review of Systems Non verbal to communicate Physical Exam Vital Signs: Vital Signs: Last Vital Signs Temp 96.9 F 09/01/20 12:47 Pulse 80 09/01/20 12:47 Resp 18 09/01/20 09:45 BP 120/80 09/01/20 12:47 Pulse Ox 98 09/01/20 12:47 Oxygen Flow Rate 2 08/31/20 14:31 Body Mass Index 15.0 Const: Other: Constitutional : Alert, not in distress, cachectic, contracted Neck : Normal inspection, Supple Cardiovascular : RRR, S1 S2, no lower extremity edema Respiratory : Good bilateral air entry, RLE crackles Gastrointestinal: soft, lax, Normal bowel sounds, Non tender Skin : Warm/Dry, No rash Neurological : Alert & oriented x3, No focal deficit Objective Data Current Medications Generic Name Dose Route Start Last Admin Trade Name Freq PRN Reason Stop Dose Admin Acetaminophen 650 mg 08/31/20 20:53 Acetaminophen Supp 650 Mg Supp.Rect [place] Q6H PRN Pain, Mild (Pain Scale 1-3) Aspirin 81 mg 09/01/20 09:00 09/01/20 08:51 Aspirin 81 Mg Tab.Chew PO Not Given DAILY [facility] Fluoxetine HCl 10 mg 09/01/20 09:00 09/01/20 08:51 Fluoxetine Hcl 10 Mg Capsule PO Not Given DAILY [facility] Dextrose/Sodium Chloride 1,000 mls @ 50 mls/hr 08/31/20 21:00 09/01/20 00:32 D51/2ns IVCONT 50 mls/hr .Q20H [facility] Administration Ceftriaxone Sodium 1 gm/ 50 mls @ 100 mls/hr 09/01/20 08:00 09/01/20 08:50 Sodium Chloride IV Infused Q24H [facility] Infusion Doxycycline Hyclate 100 mg/ 250 mls @ 166.67 mls/hr 09/01/20 08:00 09/01/20 11:10 Sodium Chloride IV Infused Q12H [facility]OC[facility] Infusion Insulin Human Lispro 0 unit 08/31/20 21:00 09/01/20 12:42 Insulin Lispro 100 Unit/Ml 3 Ml Vial SUBCUT Not Given QIDACHS [facility] Protocol Metoprolol Succinate 25 mg 09/01/20 09:00 09/01/20 08:51 Metoprolol Succinate Er 25 Mg Tab.Er.24h PO Not Given DAILY [facility] Protocol Omeprazole 20 mg 09/01/20 06:30 09/01/20 06:11 Omeprazole 20 Mg Capsule.Dr PO 20 mg DAILY@0630 [facility] Administration Pharmacy Consult 1 each 08/31/20 19:47 Consult Rx Perform Med Rec MISCELLANE ONCE PRN Consult order Pharmacy Consult 1 each 08/31/20 20:54 Consult Rx Vancomycin Dosing MISCELLANE DAILY PRN Consult order Senna 17.2 mg 08/31/20 20:53 Sennosides 8.6 Mg Tablet PO BEDTIME PRN Constipation Sodium Chloride 3 ml 09/01/20 00:00 09/01/20 08:37 0.9 % Sodium Chloride Flush 3 Ml Syringe IVFLUSH Not Given QSHIFT [facility] Trazodone HCl 50 mg 08/31/20 20:58 Trazodone Hcl 50 Mg Tablet PO BEDTIME PRN Sleep Valsartan 160 mg 09/01/20 09:00 09/01/20 08:52 Valsartan 160 Mg Tablet PO Not Given DAILY [facility] Protocol Vitamin D 50 mcg 09/01/20 09:00 09/01/20 08:51 Cholecalciferol (Vitamin D3) 25 Mcg Tablet PO Not Given DAILY [facility] Labs CBC & Chem 7: 09/01/20 06:32 09/01/20 06:32 Microbiology Microbiology Results: Microbiology 08/31/20 17:48 Urine clean catch - Clean Catch Midstream Urine Culture - Final Strep agalactiae (Grp B) Assessment and Plan (1) Pneumonia: Status: Acute Assessment and Plan: 69-year-old male with a past medical history of hypertension, hyperlipidemia, diabetes, developmental delay, baseline nonverbal and bed-bound presented with generalized weakness/lethargy. Noted to have pneumonia. Toxic metabolic encephalopathy Supportive care CT head showed no acute findings Seems to be part of his general deconditioning and being cachectic with decreased oral intake Aspiration Pneumonia Discontinue vanc and cefepime Pending cultures. Started doxycycline and ceftriaxone Hypoxia Likely in the setting of aspiration pneumonia Still on 3 L of oxygen to keep sats in 90s Low probability for PE by V/Q scan. Adult failure to thrive Patient has decreased oral intake and weight loss as per the family. Patient is on Magace at home. Plan to place a home a PICC tube tomorrow by GI Severe protein calorie malnutrition Nutrition consult. Reportedly patient has failed outpatient speech and swallow eval and has plans for G-tube placement. Will consult Gastroenterology. Pureed diet per speech and Swallow. To keep NPO after midnight Transaminitis Uncler etiology negative acute hepatitis panel right upper quadrant ultrasound; CT abdomen showed no acute findings except for constipation. Constipation Dulcolax suppository p.r.n.. Microscopic hematuria Patient had urine sample after straight catheterization. Question trauma related. Will defer to the a.m. team to repeat urinalysis in the morning after hydration. Diabetes Insulin sliding scale DVT prophylaxis: SCD boots Code status: Full code-discussed with the patient's guardian; requested documentations to be brought in to the hospital in the morning.
[2020-09-01 16:13] LABS: Glucose, Whole Blood 178 mg/dL (60-115)
[2020-09-01] MEDS: Insulin Lispro 100 UNIT/ML 3 ML VIAL SUBCUT (16:41)
--- NOTE | 2020-09-01 17:25 | PC.NURSE ---
Pt on pureed diet - RN saw pt feeding him- did so in small bites, no coughing, no aspiration. Pt ate 100% of his dinner and beverages. remains at bedside at this time.
--- NOTE | 2020-09-01 17:44 | PM.GICN ---
History of Present Illness Data of Consult Service Date: 09/01/20 Requesting physician: Coleen Gallegos Primary Care Provider: Rajendra Quigley MD HPI Reason for consult: G tube placement 69-year-old male with a past medical history of hypertension, hyperlipidemia, diabetes, dementia, depression, who I am seeing for assessment for G tube placement. Hx from notes and carer, as well as niece Patient is non verbal. He has not been eating anything. He has been getting weaker and more lethargic. He has not been noted to have any diarrhea or abdominal pain. He has been losing weight over the last year. Ba swallow 12/2019 with no mass or stricture, poss dysmotility, but exam was limited due to patient factors and compliance. He has been having a cough and was hypoxic on admission, better now with [address] with pneumonia so on ABx, covid was negative (he was covid pos 05/2020) Previous H pylori and gastric ulcer treated by Dr Bishop. 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 Unexplained weight loss Unsteady gait Vitamin D deficiency Family History Family History Father Hypertension CVD (cardiovascular disease) Mother Hypertension Diabetes Cancer Surgical History Surgical History History of colonoscopy Hx of endoscopy Social History Social History Household Members: Family Housing: House Unable to assess alcohol history related to: Unknown Alcohol intake: never Smoking Status: Unknown if ever smoked Use of substances other than those prescribed or required for medical reasons: Unknown Advance Directives: No Advance Directives Information Provided: Yes Recently lost weight without trying: Yes service: No Current occupational status: disabled Meds Allergies Allergy/AdvReac Type Severity Reaction Status Date / Time diatrizoate sodium Allergy Unknown HIVES Verified 07/19/20 11:38 [From HYPAQUE] Iodinated Contrast Media Allergy Unknown HIVES Verified 07/19/20 11:38 [IV Dye, Iodine Containing] penicillin V Allergy Unknown Hives Verified 07/19/20 11:38 Penicillins [PENICILLINS] Allergy Unknown RASH Verified 07/19/20 11:38 dulaglutide [Trulicity] AdvReac Unknown abdominal Verified 07/19/20 11:38 pain Active Medications: Current Medications Generic Name Dose Route Start Last Admin Trade Name Freq PRN Reason Stop Dose Admin Acetaminophen 650 mg 08/31/20 20:53 Acetaminophen Supp 650 Mg Supp.Rect [place] Q6H PRN Pain, Mild (Pain Scale 1-3) Aspirin 81 mg 09/01/20 09:00 09/01/20 08:51 Aspirin 81 Mg Tab.Chew PO Not Given DAILY [facility] Fluoxetine HCl 10 mg 09/01/20 09:00 09/01/20 08:51 Fluoxetine Hcl 10 Mg Capsule PO Not Given DAILY [facility] Dextrose/Sodium Chloride 1,000 mls @ 50 mls/hr 08/31/20 21:00 09/01/20 17:13 D51/2ns IVCONT 50 mls/hr .Q20H [facility] Administration Ceftriaxone Sodium 1 gm/ 50 mls @ 100 mls/hr 09/01/20 08:00 09/01/20 08:50 Sodium Chloride IV Infused Q24H [facility] Infusion Doxycycline Hyclate 100 mg/ 250 mls @ 166.67 mls/hr 09/01/20 08:00 09/01/20 11:10 Sodium Chloride IV Infused Q12H [facility] Infusion Insulin Human Lispro 0 unit 08/31/20 21:00 09/01/20 16:41 Insulin Lispro 100 Unit/Ml 3 Ml Vial SUBCUT [address] [facility] Administration Protocol Metoprolol Succinate 25 mg 09/01/20 09:00 09/01/20 08:51 Metoprolol Succinate Er 25 Mg Tab.Er.24h PO Not Given DAILY [facility] Protocol Omeprazole 20 mg 09/01/20 06:30 09/01/20 06:11 Omeprazole 20 Mg Capsule.Dr PO 20 mg DAILY@0630 [facility] Administration Pharmacy Consult 1 each 08/31/20 19:47 Consult Rx Perform Med Rec MISCELLANE ONCE PRN Consult order Pharmacy Consult 1 each 08/31/20 20:54 Consult Rx Vancomycin Dosing MISCELLANE DAILY PRN Consult order Senna 17.2 mg 08/31/20 20:53 Sennosides 8.6 Mg Tablet PO BEDTIME PRN Constipation Sodium Chloride 3 ml 09/01/20 00:00 09/01/20 16:43 0.9 % Sodium Chloride Flush 3 Ml Syringe IVFLUSH Not Given QSHIFT [facility] Trazodone HCl 50 mg 08/31/20 20:58 Trazodone Hcl 50 Mg Tablet PO BEDTIME PRN Sleep Valsartan 160 mg 09/01/20 09:00 09/01/20 08:52 Valsartan 160 Mg Tablet PO Not Given DAILY [facility] Protocol Vitamin D 50 mcg 09/01/20 09:00 09/01/20 08:51 Cholecalciferol (Vitamin D3) 25 Mcg Tablet PO Not Given DAILY [facility] Home Medications Medication Instructions Recorded Confirmed Last Taken Type fluoxetine 1 cap PO QAM 03/11/20 08/31/20 Unknown History aspirin 81 mg chewable tablet 1 tab PO QAM 04/21/20 08/31/20 Unknown History valsartan 320 mg tablet 160 mg PO QAM tab 07/19/20 08/31/20 Unknown History fenofibrate nanocrystallized 1 tab PO BEDTIME 08/31/20 08/31/20 Unknown History rosuvastatin 1 tab PO BEDTIME 08/31/20 08/31/20 Unknown History trazodone 50 mg tablet 50 mg PO BEDTIME PRN 08/31/20 08/31/20 Unknown History Physical Exam Vital Signs: Vital Signs: Last Vital Signs Temp 98.5 F 09/01/20 15:37 Pulse 84 09/01/20 15:37 Resp 20 09/01/20 15:37 BP 133/74 09/01/20 15:37 Pulse Ox 99 09/01/20 15:37 Oxygen Flow Rate 2 08/31/20 14:31 Body Mass Index 15.0 Const: Other: Constitutional : Alert, not in distress, cachectic, contracted Neck : Normal inspection, Supple Cardiovascular : RRR, S1 S2, no lower extremity edema Respiratory : Good bilateral air entry, RLE crackles Gastrointestinal: soft, lax, Normal bowel sounds, Non tender Skin : Warm/Dry, No rash Neurological : Alert & oriented x3, No focal deficit HENMT: Head: Yes normal to inspection, Yes No palpable skull fracture present, Yes normocephalic, Yes atraumatic and Yes abrasion Eyes: General: appearance normal, both eyes and all related structures Neck: Neck: Yes normal visual inspection, Yes full ROM, Yes no lymphadenopathy, Yes no meningeal signs, Yes trachea midline, Yes supple and No tender Chest: Chest palpation & inspection: normal inspection of the chest and normal palpation of entire chest wall Resp: Effort & Inspection: normal respiratory effort and able to speak in complete sentences Auscultation: diminished lung sounds Cardio: Jugular venous distension: no JVD Heart sounds: S1 normal heart sound present and S2 normal heart sound present GI: Other: Patient is very thin and cachectic like Inspection: Yes normal to inspection and No abdominal wall ecchymosis Palpation (GI): Soft to palpation, not firm, nontender, no guarding and not rigid : General: No CVA tenderness and Yes no CVA tenderness Back/Spine/Pelvis: Back: no CVA tenderness, No CVA tenderness and No back tenderness Skin: General skin exam: no rashes or lesions noted and elasticity normal Neuro: Other: Baseline dementia and nonverbal General: no meningeal signs and CN's II-XI intact bilaterally Cranial nerves: Yes CN's II-XII intact bilaterally Extrem: General: Yes normal to inspection and Yes full ROM Psych: Other: Skinny. Cachectic like. Appearance: grossly normal and well kempt Results Labs CBC & Chem 7: 09/01/20 06:32 09/01/20 06:32 Labs: Short CBC 09/01/20 Range/Units 06:32 WBC 6.5 (4.8-10.8) X10*3/uL Hgb 14.2 (14.0-18.0) g/dl Hct 43.8 (42-52) % Plt Count 119 L (160-400) X10*3/uL BMP 09/01/20 06:32 Sodium 140 Potassium 4.4 Chloride 105 Carbon Dioxide 21 L BUN 24 H Creatinine 0.60 Calcium 9.1 D Liver Function 09/01/20 Range/Units 06:32 Total Bilirubin 1.2 H (0.0-1.0) mg/dL Direct Bilirubin 0.5 (0.0-0.5) mg/dL AST 82 H (5-37) U/L ALT 257 H (0-40) U/L Alkaline Phosphatase 131 H (39-117) U/L Albumin 3.9 (3.5-5.0) g/dL Microbiology Microbiology Results: Microbiology 08/31/20 15:29 Blood - Venous Blood Culture - Preliminary No growth after 24 hours. 08/31/20 14:57 Blood - Venous Blood Culture - Preliminary No growth after 24 hours. 08/31/20 17:48 Urine clean catch - Clean Catch Midstream Urine Culture - Final Strep agalactiae (Grp B) Assessment and Plan (1) Adult failure to thrive: Status: Acute (2) Weight loss, unintentional: Status: Acute 1/ Deconditioning with failure to thrive and severe protein calorie malnutrition. I did explain to family that this maybe a sign of terminal dementia but the family want to give him a chance and see if he can improve with nutrition thru a G tube. I did explain this may no necessarily lengthen life, but can reduce risk (but not eliminate) aspiration however, unclear to me if the current pneumonia is due to aspiration or not/ PLAN: 1/ NPO from midnight 2/ risks of procedure explained, will book for OR tomorrow.
[2020-09-01 20:18] LABS: Glucose, Whole Blood 140 mg/dL (60-115)
[2020-09-02] VITALS (12 sets, daily range): BP systolic 107–163; BP diastolic 60–80; PULSE 66–112; RESP 16–22; TEMP 36.2–37.1; O2SAT 98–100
[2020-09-02 06:49] LABS: Mean Corpuscular Hemoglobin 27.4 pg (27.0-33.0); PLT CLUMP 1
[2020-09-02 06:51] LABS: Hematocrit 41.1 % (42-52); Hemoglobin 13.3 g/dl (14.0-18.0); Mean Corpuscular HGB Conc 32.4 g/dl (31.0-36.0); Mean Corpuscular Volume 84.7 fL (80-98); Platelet Count 101 X10*3/uL (160-400); Red Blood Count 4.85 X10*6/uL (4.60-5.80); Red Cell Distribution Width 13.3 % (11.0-16.0); White Blood Count 6.5 X10*3/uL (4.8-10.8)
[2020-09-02 07:06] LABS: Glucose, Whole Blood 71 mg/dL (60-115)
[2020-09-02 07:51] LABS: Anion Gap 15 (12-20); Blood Urea Nitrogen 19 mg/dL (9-16); Calcium 8.9 mg/dL (8.4-10.2); Carbon Dioxide 22 mmol/L (22-29); Chloride 105 mmol/L (96-108); Creatinine Clr Calc Pharmacy 79.5; Estimated Glomerular Filt Rate > 60; Glucose Random 60 mg/dL (60-115); Potassium 3.9 mmol/L (3.3-5.1); Sodium 138 mmol/L (135-145)
[2020-09-02] MEDS: Doxycycline Hyclate 100 MG in 0.9 % Sodium Chloride 250 ML 166.67 MG IV ×2 (09:41→20:11)
[2020-09-02] MEDS: cefTRIAXone sodium 1 GM in 0.9 % Sodium Chloride 50 ML IV (09:42)
[2020-09-02] MEDS: Valsartan 160 MG TABLET PO (09:43)
[2020-09-02] MEDS: 0.9 % Sodium Chloride Flush 3 ML SYRINGE IVFLUSH ×2 (09:44→20:12)
[2020-09-02] MEDS: Metoprolol Succinate ER 25 MG TAB.ER.24H PO (09:44)
--- NOTE | 2020-09-02 10:24 | MHC.SLORD ---
Speech Language Pathology Order Status: CRULLER MAKER spoke with RN. Per RN, patient is NPO for PEG tube placement today. CRULLER MAKER will continue to follow.
[2020-09-02 11:18] LABS: Glucose, Whole Blood 76 mg/dL (60-115)
--- NOTE | 2020-09-02 12:19 | HO.PM.IMPN ---
Subjective Subjective Date of Service: 09/02/20 Interval History: Patient nonverbal, making eye contact, unable to provide any history, spoke with RN no acute issues overnight patient able to take medications. Unable to obtain review of system due to underlying dementia and developmental delay. Physical Exam Vital Signs: Vital Signs: Last Vital Signs Temp 97.5 F 09/02/20 11:46 Pulse 68 09/02/20 11:46 Resp 18 09/02/20 11:46 BP 163/80 H 09/02/20 11:46 Pulse Ox 99 09/02/20 11:46 Oxygen Flow Rate 2 08/31/20 14:31 Body Mass Index 15.0 Constitutional : Awake alert, not in distress, cachectic Neck : Normal inspection, no JVD Cardiovascular : RRR, S1 S2 Respiratory : No acute distress, lungs clear to auscultation, crackles right lower base Gastrointestinal: soft, Normal bowel sounds, Non tender Skin : Warm/Dry, No rash Neurological : Unable to obtain neuro examination Objective Data Current Medications Generic Name Dose Route Start Last Admin Trade Name Freq PRN Reason Stop Dose Admin Acetaminophen 650 mg 08/31/20 20:53 Acetaminophen Supp 650 Mg Supp.Rect [place] Q6H PRN Pain, Mild (Pain Scale 1-3) Aspirin 81 mg 09/01/20 09:00 09/02/20 09:46 Aspirin 81 Mg Tab.Chew PO Not Given DAILY [facility] Fluoxetine HCl 10 mg 09/01/20 09:00 09/02/20 09:46 Fluoxetine Hcl 10 Mg Capsule PO Not Given DAILY [facility] Dextrose/Sodium Chloride 1,000 mls @ 50 mls/hr 08/31/20 21:00 09/01/20 17:13 D51/2ns IVCONT 50 mls/hr .Q20H [facility] Administration Ceftriaxone Sodium 1 gm/ 50 mls @ 100 mls/hr 09/01/20 08:00 09/02/20 10:19 Sodium Chloride IV Infused Q24H [facility] Infusion Doxycycline Hyclate 100 mg/ 250 mls @ 166.67 mls/hr 09/01/20 08:00 09/02/20 12:07 Sodium Chloride IV Infused Q12H [facility] Infusion Insulin Human Lispro 0 unit 08/31/20 21:00 09/02/20 08:01 Insulin Lispro 100 Unit/Ml 3 Ml Vial SUBCUT Not Given QIDACHS [facility] Protocol Metoprolol Succinate 25 mg 09/01/20 09:00 09/02/20 09:44 Metoprolol Succinate Er 25 Mg Tab.Er.24h PO 25 mg DAILY [facility] Administration Protocol Omeprazole 20 mg 09/01/20 06:30 09/02/20 05:32 Omeprazole 20 Mg Capsule.Dr PO Not Given DAILY@0630 [facility] Pharmacy Consult 1 each 08/31/20 19:47 Consult Rx Perform Med Rec MISCELLANE ONCE PRN Consult order Pharmacy Consult 1 each 08/31/20 20:54 Consult Rx Vancomycin Dosing MISCELLANE DAILY PRN Consult order Senna 17.2 mg 08/31/20 20:53 Sennosides 8.6 Mg Tablet PO BEDTIME PRN Constipation Sodium Chloride 3 ml 09/01/20 00:00 09/02/20 09:44 0.9 % Sodium Chloride Flush 3 Ml Syringe IVFLUSH 3 ml QSHIFT [facility] Administration Trazodone HCl 50 mg 08/31/20 20:58 Trazodone Hcl 50 Mg Tablet PO BEDTIME PRN Sleep Valsartan 160 mg 09/01/20 09:00 09/02/20 09:43 Valsartan 160 Mg Tablet PO 160 mg DAILY [facility] Administration Protocol Vitamin D 50 mcg 09/01/20 09:00 09/02/20 09:46 Cholecalciferol (Vitamin D3) 25 Mcg Tablet PO Not Given DAILY [facility] Labs CBC & Chem 7: 09/02/20 05:53 09/02/20 05:53 Microbiology Microbiology Results: Microbiology 08/31/20 15:29 Blood - Venous Blood Culture - Preliminary No growth after 24 hours. 08/31/20 14:57 Blood - Venous Blood Culture - Preliminary No growth after 24 hours. 08/31/20 17:48 Urine clean catch - Clean Catch Midstream Urine Culture - Final Strep agalactiae (Grp B) Assessment and Plan (1) Pneumonia: Status: Acute (2) Adult failure to thrive: Status: Acute (3) Chronic idiopathic constipation: Status: Acute (4) Weight loss, unintentional: Status: Acute Assessment and Plan: 69-year-old male with a past medical history of hypertension, hyperlipidemia, diabetes, developmental delay, baseline nonverbal and bed-bound presented with generalized weakness/lethargy. Noted to have pneumonia. Toxic metabolic encephalopathy Patient was noted to be lethargic at home with decreased by mouth intake At present patient is awake alert does not appear lethargic currently NPO, since schedule for G-tube placement, seems to be at baseline. Continue IV fluid CT head showed no acute findings, UA positive with 3+ bacteria no WBC, urine culture grew strep agalactie Aspiration Pneumonia Blood cultures x2 negative, patient afebrile normal WBC count Continue doxycycline and ceftriaxone for total 7 days Hypoxia Currently stable oxygenation 99% on 2 L, will wean O2 Low probability for PE by V/Q scan. Adult failure to thrive Patient has decreased oral intake and weight loss as per the family, likely due to worsening dementia. Will undergo G-tube placement today by GI , obtain nutrition consultation for feedings. Severe protein calorie malnutrition Nutrition consult obtained will have G-tube placed today. Pureed diet per speech therapy Transaminitis Uncler etiology, negative acute hepatitis panel right upper quadrant ultrasound and CT abdomen showed no acute findings except for constipation, follow liver panel. Constipation Dulcolax suppository p.r.n.. Microscopic hematuria sample obtained after straight catheterization, will repeat UA. Diabetes Blood sugar Seventy one will discontinue Insulin sliding scale. DVT prophylaxis: SCD boots Code status: Full code
--- NOTE | 2020-09-02 14:30 | MHC.SHP ---
Pre-Procedural Eval Section A The patient is an INPATIENT: Yes The History & Physical has been completed within 30 days and I have reviewed it.: Yes Section B Chief Complaint: PNA Allergies: Allergies Allergy/AdvReac Type Severity Reaction Status Date / Time diatrizoate sodium Allergy Unknown HIVES Verified 07/19/20 11:38 [From HYPAQUE] Iodinated Contrast Media Allergy Unknown HIVES Verified 07/19/20 11:38 [IV Dye, Iodine Containing] penicillin V Allergy Unknown Hives Verified 07/19/20 11:38 Penicillins [PENICILLINS] Allergy Unknown RASH Verified 07/19/20 11:38 dulaglutide [Trulicity] AdvReac Unknown abdominal Verified 07/19/20 11:38 pain Plan Diagnosis/Plan: Unchanged I have reviewed the history and physical and performed a pertinent physical examination on my patient. No changes have occurred unless specified.
--- NOTE | 2020-09-02 14:36 | HO.ANESPROP2 ---
HPI - Anesthesia Eval Consult details Narrative: 69 yo male patient here for PEG tube insertion. PMF Active Problems Active Problems: All Active Problems (Updated 08/31/20 @ 20:17 by CHASIDY Gay) Pneumonia (Acute) Adult failure to thrive (Acute) Chronic idiopathic constipation (Acute) Weight loss, unintentional (Acute) Skin sore (Acute) Mixed hyperlipidemia (Acute) COVID-19 (Acute) Type 2 diabetes mellitus with other diabetic kidney complication (Acute) Proteinuria (Acute) Type 2 diabetes mellitus with diabetic polyneuropathy (Acute) Essential hypertension (Acute) Dyslipidemia (Acute) Vitamin D deficiency (Acute) Mental disability (Acute) Chronic constipation (Acute) Colon cancer screening (Acute) Weight loss (Acute) Dysphagia, pharyngoesophageal phase (Acute) Depression (Acute) Benign essential hypertension (Acute) Gastric ulcer without hemorrhage or perforation (Acute) Dementia (Acute) Unsteady gait (Acute) Unexplained weight loss (Acute) Insomnia (Acute) Past Medical History Medical History Benign essential hypertension Dementia Depression Developmental delay, mild Dyslipidemia Essential hypertension Gastric ulcer without hemorrhage or perforation History of Helicobacter pylori infection Insomnia Mixed hyperlipidemia Proteinuria Skin sore Tubular adenoma 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 Unexplained weight loss Unsteady gait Vitamin D deficiency Family History Family History Father Hypertension CVD (cardiovascular disease) Mother Hypertension Diabetes Cancer Family history of problems with anesthesia: No Surgical History Surgical History History of colonoscopy Hx of endoscopy History of Problems with Anesthesia: No Social History Social History (Updated 09/02/20 @ 15:16 by Leigh Farrell) Household Members: Family Housing: House Unable to assess alcohol history related to: Unknown Alcohol intake: never Smoking Status: Never smoker Use of substances other than those prescribed or required for medical reasons: No Currently Displaying Signs/Symptoms of Drug Intoxication Withdrawal: No Advance Directives: No Advance Directives Information Provided: Yes Do you have thoughts of harming others: None Do you have a plan to hurt others: No Plan Recently lost weight without trying: Yes service: No Current occupational status: disabled Meds Allergies Allergy/AdvReac Type Severity Reaction Status Date / Time diatrizoate sodium Allergy Unknown HIVES Verified 07/19/20 11:38 [From HYPAQUE] Iodinated Contrast Media Allergy Unknown HIVES Verified 07/19/20 11:38 [IV Dye, Iodine Containing] penicillin V Allergy Unknown Hives Verified 07/19/20 11:38 Penicillins [PENICILLINS] Allergy Unknown RASH Verified 07/19/20 11:38 dulaglutide [Trulicity] AdvReac Unknown abdominal Verified 07/19/20 11:38 pain Active Medications: Current Medications Generic Name Dose Route Start Last Admin Trade Name Freq PRN Reason Stop Dose Admin Acetaminophen 650 mg 08/31/20 20:53 Acetaminophen Supp 650 Mg Supp.Rect AK Q6H PRN Pain, Mild (Pain Scale 1-3) Aspirin 81 mg 09/01/20 09:00 09/02/20 09:46 Aspirin 81 Mg Tab.Chew PO Not Given DAILY [facility] Fluoxetine HCl 10 mg 09/01/20 09:00 09/02/20 09:46 Fluoxetine Hcl 10 Mg Capsule PO Not Given DAILY [facility] Dextrose/Sodium Chloride 1,000 mls @ 50 mls/hr 08/31/20 21:00 09/02/20 12:33 D51/2ns IVCONT 0 mls/hr .Q20H [facility] Infusion Ceftriaxone Sodium 1 gm/ 50 mls @ 100 mls/hr 09/01/20 08:00 09/02/20 10:19 Sodium Chloride IV Infused Q24H [facility] Infusion Doxycycline Hyclate 100 mg/ 250 mls @ 166.67 mls/hr 09/01/20 08:00 09/02/20 12:07 Sodium Chloride IV Infused Q12H [facility] Infusion Metoprolol Succinate 25 mg 09/01/20 09:00 09/02/20 09:44 Metoprolol Succinate Er 25 Mg Tab.Er.24h PO 25 mg DAILY [facility] Administration Protocol Omeprazole 20 mg 09/01/20 06:30 09/02/20 05:32 Omeprazole 20 Mg Capsule. PO Not Given DAILY@0630 [facility] Pharmacy Consult 1 each 08/31/20 19:47 Consult Rx Perform Med Rec MISCELLANE ONCE PRN Consult order Pharmacy Consult 1 each 08/31/20 20:54 Consult Rx Vancomycin Dosing MISCELLANE DAILY PRN Consult order Senna 17.2 mg 08/31/20 20:53 Sennosides 8.6 Mg Tablet PO BEDTIME PRN Constipation Sodium Chloride 3 ml 09/01/20 00:00 09/02/20 09:44 0.9 % Sodium Chloride Flush 3 Ml Syringe IVFLUSH 3 ml QSHIFT [facility] Administration Trazodone HCl 50 mg 08/31/20 20:58 Trazodone Hcl 50 Mg Tablet PO BEDTIME PRN Sleep Valsartan 160 mg 09/01/20 09:00 09/02/20 09:43 Valsartan 160 Mg Tablet PO 160 mg DAILY [facility] Administration Protocol Vitamin D 50 mcg 09/01/20 09:00 09/02/20 09:46 Cholecalciferol (Vitamin D3) 25 Mcg Tablet PO Not Given DAILY [facility] Home Medications Medication Instructions Recorded Confirmed Last Taken Type fluoxetine 1 cap PO QAM 03/11/20 08/31/20 Unknown History aspirin 81 mg chewable tablet 1 tab PO QAM 04/21/20 08/31/20 Unknown History valsartan 320 mg tablet 160 mg PO QAM tab 07/19/20 08/31/20 Unknown History fenofibrate nanocrystallized 1 tab PO BEDTIME 08/31/20 08/31/20 Unknown History rosuvastatin 1 tab PO BEDTIME 08/31/20 08/31/20 Unknown History trazodone 50 mg tablet 50 mg PO BEDTIME PRN 08/31/20 08/31/20 Unknown History Exam Exam Date and Time: September 02, 2020 1436 Height,Weight and Vital Signs: Height 5 ft 5 in Weight 40.823 kg Last Vital Signs Temp 97.5 F 09/02/20 11:46 Pulse 68 09/02/20 11:46 Resp 18 09/02/20 11:46 BP 163/80 H 09/02/20 11:46 Pulse Ox 99 09/02/20 11:46 Oxygen Flow Rate 2 08/31/20 14:31 Pertinent Lab Results Pertinent Lab Results: Laboratory Tests 08/31/20 08/31/20 08/31/20 14:57 14:58 14:58 WBC 6.0 RBC 5.17 Hgb 14.1 Hct 44.8 MCV 86.7 MCH 27.3 MCHC 31.5 RDW 13.6 Plt Count 142 L D MPV 10.4 Immature Gran % (Auto) 0.2 Neut % (Auto) 71.8 Lymph % (Auto) 23.1 Smith % (Auto) 4.7 Eos % (Auto) 0.0 Baso % (Auto) 0.2 Lymph # (Auto) 1.4 Smith # (Auto) 0.3 Eos # (Auto) 0.0 Baso # (Auto) 0.0 Abs Immat Gran (auto) 0.01 Absolute Neuts (auto) 4.3 Absolute Nucleated RBC 0.000 Nucleated RBC % (auto) 0.0 Smear Tech's Comments PT 12.5 INR 1.1 APTT 35.2 D-Dimer 278 Sodium 140 Potassium 4.4 Chloride 102 Carbon Dioxide 29 Anion Gap 13 BUN 26 H Creatinine 0.72 Estim Creat Clear Calc 57.4 Estimated GFR > 60 POC Glucose Random Glucose 86 Lactic Acid Calcium 9.9 Magnesium 2.2 Total Bilirubin 1.2 H Direct Bilirubin AST 57 H ALT 305 H Alkaline Phosphatase 157 H D Ammonia Total Creatine Kinase Troponin I High Sens Total Protein 6.9 Albumin 4.3 Urine Color Urine Appearance Urine pH Ur Specific [place] Urine Protein Urine Glucose (UA) Urine Ketones Urine Blood Urine Nitrite Ur Leukocyte Esterase Urine RBC Urine WBC Ur Squamous Epith Cells Urine Bacteria Coronavirus (PCR) Hepatitis A IgM Ab Hep Bs Antigen Hep Bs Antibody Hep B Core Total Ab Hepatitis C Ab (EIA) Influenza Type A (PCR) Influenza Type B (PCR) RSV RNA Qual (PCR) 08/31/20 08/31/20 08/31/20 14:59 16:03 16:03 WBC RBC Hgb Hct MCV MCH MCHC RDW Plt Count MPV Immature Gran % (Auto) Neut % (Auto) Lymph % (Auto) Smith % (Auto) Eos % (Auto) Baso % (Auto) Lymph # (Auto) Smith # (Auto) Eos # (Auto) Baso # (Auto) Abs Immat Gran (auto) Absolute Neuts (auto) Absolute Nucleated RBC Nucleated RBC % (auto) Smear Tech's Comments PT INR APTT D-Dimer Sodium Potassium Chloride Carbon Dioxide Anion Gap BUN Creatinine Estim Creat Clear Calc Estimated GFR POC Glucose Random Glucose Lactic Acid 1.6 Calcium Magnesium Total Bilirubin Direct Bilirubin AST ALT Alkaline Phosphatase Ammonia Total Creatine Kinase Troponin I High Sens < 3.5 D Total Protein Albumin Urine Color Urine Appearance Urine pH Ur Specific [place] Urine Protein Urine Glucose (UA) Urine Ketones Urine Blood Urine Nitrite Ur Leukocyte Esterase Urine RBC Urine WBC Ur Squamous Epith Cells Urine Bacteria Coronavirus (PCR) NEGATIVE Hepatitis A IgM Ab Hep Bs Antigen Hep Bs Antibody Hep B Core Total Ab Hepatitis C Ab (EIA) Influenza Type A (PCR) NEGATIVE Influenza Type B (PCR) NEGATIVE RSV RNA Qual (PCR) NEGATIVE 08/31/20 08/31/20 08/31/20 16:03 16:03 17:04 WBC RBC Hgb Hct MCV MCH MCHC RDW Plt Count MPV Immature Gran % (Auto) Neut % (Auto) Lymph % (Auto) Smith % (Auto) Eos % (Auto) Baso % (Auto) Lymph # (Auto) Smith # (Auto) Eos # (Auto) Baso # (Auto) Abs Immat Gran (auto) Absolute Neuts (auto) Absolute Nucleated RBC Nucleated RBC % (auto) Smear Tech's Comments PT INR APTT D-Dimer Sodium Potassium Chloride Carbon Dioxide Anion Gap BUN Creatinine Estim Creat Clear Calc Estimated GFR POC Glucose Random Glucose Lactic Acid Calcium Magnesium Total Bilirubin Direct Bilirubin AST ALT Alkaline Phosphatase Ammonia 28 Total Creatine Kinase 125 D Troponin I High Sens Total Protein Albumin Urine Color YELLOW Urine Appearance HAZY Urine pH 5.5 Ur Specific [place] 1.025 Urine Protein NEG Urine Glucose (UA) 500 H Urine Ketones NEG Urine Blood NEG Urine Nitrite NEG Ur Leukocyte Esterase TRACE H Urine RBC 10-14 H Urine WBC 0-2 Ur Squamous Epith Cells TRACE Urine Bacteria 3+ Coronavirus (PCR) Hepatitis A IgM Ab Hep Bs Antigen Hep Bs Antibody Hep B Core Total Ab Hepatitis C Ab (EIA) Influenza Type A (PCR) Influenza Type B (PCR) RSV RNA Qual (PCR) 08/31/20 09/01/20 09/01/20 23:06 06:32 06:32 WBC 6.5 RBC 5.15 Hgb 14.2 Hct 43.8 MCV 85.0 MCH 27.6 MCHC 32.4 RDW 13.4 Plt Count 119 L MPV Not Reportable Immature Gran % (Auto) 0.2 Neut % (Auto) 74.6 H Lymph % (Auto) 18.8 L Smith % (Auto) 6.2 Eos % (Auto) 0.0 Baso % (Auto) 0.2 Lymph # (Auto) 1.2 Smith # (Auto) 0.4 Eos # (Auto) 0.0 Baso # (Auto) 0.0 Abs Immat Gran (auto) 0.01 Absolute Neuts (auto) 4.9 Absolute Nucleated RBC 0.000 Nucleated RBC % (auto) 0.0 Smear Tech's Comments VERIFIED PT INR APTT D-Dimer Sodium 140 Potassium 4.4 Chloride 105 Carbon Dioxide 21 L Anion Gap 18 BUN 24 H Creatinine 0.60 Estim Creat Clear Calc 68.9 Estimated GFR > 60 POC Glucose 79 Random Glucose 93 Lactic Acid Calcium 9.1 D Magnesium Total Bilirubin Direct Bilirubin AST ALT Alkaline Phosphatase Ammonia Total Creatine Kinase Troponin I High Sens Total Protein Albumin Urine Color Urine Appearance Urine pH Ur Specific [place] Urine Protein Urine Glucose (UA) Urine Ketones Urine Blood Urine Nitrite Ur Leukocyte Esterase Urine RBC Urine WBC Ur Squamous Epith Cells Urine Bacteria Coronavirus (PCR) Hepatitis A IgM Ab Hep Bs Antigen Hep Bs Antibody Hep B Core Total Ab Hepatitis C Ab (EIA) Influenza Type A (PCR) Influenza Type B (PCR) RSV RNA Qual (PCR) 09/01/20 09/01/20 09/01/20 06:32 06:32 07:10 WBC RBC Hgb Hct MCV MCH MCHC RDW Plt Count MPV Immature Gran % (Auto) Neut % (Auto) Lymph % (Auto) Smith % (Auto) Eos % (Auto) Baso % (Auto) Lymph # (Auto) Smith # (Auto) Eos # (Auto) Baso # (Auto) Abs Immat Gran (auto) Absolute Neuts (auto) Absolute Nucleated RBC Nucleated RBC % (auto) Smear Tech's Comments PT INR APTT D-Dimer Sodium Potassium Chloride Carbon Dioxide Anion Gap BUN Creatinine Estim Creat Clear Calc Estimated GFR POC Glucose 94 Random Glucose Lactic Acid Calcium Magnesium Total Bilirubin 1.2 H Direct Bilirubin 0.5 AST 82 H ALT 257 H Alkaline Phosphatase 131 H Ammonia Total Creatine Kinase Troponin I High Sens Total Protein 6.2 L Albumin 3.9 Urine Color Urine Appearance Urine pH Ur Specific [place] Urine Protein Urine Glucose (UA) Urine Ketones Urine Blood Urine Nitrite Ur Leukocyte Esterase Urine RBC Urine WBC Ur Squamous Epith Cells Urine Bacteria Coronavirus (PCR) Hepatitis A IgM Ab Nonreactive Hep Bs Antigen Negative Hep Bs Antibody NONREACTIVE Hep B Core Total Ab Nonreactive Hepatitis C Ab (EIA) Nonreactive Influenza Type A (PCR) Influenza Type B (PCR) RSV RNA Qual (PCR) 09/01/20 09/01/20 09/01/20 11:56 16:07 20:05 WBC RBC Hgb Hct MCV MCH MCHC RDW Plt Count MPV Immature Gran % (Auto) Neut % (Auto) Lymph % (Auto) Smith % (Auto) Eos % (Auto) Baso % (Auto) Lymph # (Auto) Smith # (Auto) Eos # (Auto) Baso # (Auto) Abs Immat Gran (auto) Absolute Neuts (auto) Absolute Nucleated RBC Nucleated RBC % (auto) Smear Tech's Comments PT INR APTT D-Dimer Sodium Potassium Chloride Carbon Dioxide Anion Gap BUN Creatinine Estim Creat Clear Calc Estimated GFR POC Glucose 92 178 H 140 H Random Glucose Lactic Acid Calcium Magnesium Total Bilirubin Direct Bilirubin AST ALT Alkaline Phosphatase Ammonia Total Creatine Kinase Troponin I High Sens Total Protein Albumin Urine Color Urine Appearance Urine pH Ur Specific [place] Urine Protein Urine Glucose (UA) Urine Ketones Urine Blood Urine Nitrite Ur Leukocyte Esterase Urine RBC Urine WBC Ur Squamous Epith Cells Urine Bacteria Coronavirus (PCR) Hepatitis A IgM Ab Hep Bs Antigen Hep Bs Antibody Hep B Core Total Ab Hepatitis C Ab (EIA) Influenza Type A (PCR) Influenza Type B (PCR) RSV RNA Qual (PCR) 09/02/20 09/02/20 09/02/20 05:53 05:53 06:59 WBC 6.5 RBC 4.85 Hgb 13.3 L Hct 41.1 L MCV 84.7 MCH 27.4 MCHC 32.4 RDW 13.3 Plt Count 101 L MPV Not Reportable Immature Gran % (Auto) Neut % (Auto) Lymph % (Auto) Smith % (Auto) Eos % (Auto) Baso % (Auto) Lymph # (Auto) Smith # (Auto) Eos # (Auto) Baso # (Auto) Abs Immat Gran (auto) Absolute Neuts (auto) Absolute Nucleated RBC 0.000 Nucleated RBC % (auto) 0.0 Smear Tech's Comments PT INR APTT D-Dimer Sodium 138 Potassium 3.9 Chloride 105 Carbon Dioxide 22 Anion Gap 15 BUN 19 H Creatinine 0.52 Estim Creat Clear Calc 79.5 Estimated GFR > 60 POC Glucose 71 Random Glucose 60 D Lactic Acid Calcium 8.9 Magnesium Total Bilirubin Direct Bilirubin AST ALT Alkaline Phosphatase Ammonia Total Creatine Kinase Troponin I High Sens Total Protein Albumin Urine Color Urine Appearance Urine pH Ur Specific [place] Urine Protein Urine Glucose (UA) Urine Ketones Urine Blood Urine Nitrite Ur Leukocyte Esterase Urine RBC Urine WBC Ur Squamous Epith Cells Urine Bacteria Coronavirus (PCR) Hepatitis A IgM Ab Hep Bs Antigen Hep Bs Antibody Hep B Core Total Ab Hepatitis C Ab (EIA) Influenza Type A (PCR) Influenza Type B (PCR) RSV RNA Qual (PCR) 09/02/20 11:09 WBC RBC Hgb Hct MCV MCH MCHC RDW Plt Count MPV Immature Gran % (Auto) Neut % (Auto) Lymph % (Auto) Smith % (Auto) Eos % (Auto) Baso % (Auto) Lymph # (Auto) Smith # (Auto) Eos # (Auto) Baso # (Auto) Abs Immat Gran (auto) Absolute Neuts (auto) Absolute Nucleated RBC Nucleated RBC % (auto) Smear Tech's Comments PT INR APTT D-Dimer Sodium Potassium Chloride Carbon Dioxide Anion Gap BUN Creatinine Estim Creat Clear Calc Estimated GFR POC Glucose 76 Random Glucose Lactic Acid Calcium Magnesium Total Bilirubin Direct Bilirubin AST ALT Alkaline Phosphatase Ammonia Total Creatine Kinase Troponin I High Sens Total Protein Albumin Urine Color Urine Appearance Urine pH Ur Specific [place] Urine Protein Urine Glucose (UA) Urine Ketones Urine Blood Urine Nitrite Ur Leukocyte Esterase Urine RBC Urine WBC Ur Squamous Epith Cells Urine Bacteria Coronavirus (PCR) Hepatitis A IgM Ab Hep Bs Antigen Hep Bs Antibody Hep B Core Total Ab Hepatitis C Ab (EIA) Influenza Type A (PCR) Influenza Type B (PCR) RSV RNA Qual (PCR) Airway Mallampati Class: II TM Dist: >3cm Neck ROM: Limited Loose/Missing/Broken Teeth: Yes (No teeth) Heart: RRR Lungs: CTAB Assessment and Plan Assessment Anesthesia Assessment: Anesthesia Plan Discussed and Chart Reviewed Final Anesthetic Review NPO: Yes ASA Class: III and Emergency Final Preanesthetic Review: No Changes in Pt Med Stat, Meds/Allgs Chart Reviewed, Consent Obtained/Reviewed and Anes Risks/Benef Reviewed Patient Risk: Intermediate Procedure Risk: Low Assessment/Block/Sedation in SS: Assess/Block/Sedation- Anesthetic Plan Anesthetic Plan: MAC: Disposition: Standard PACU
[2020-09-02 14:49] LABS: Glucose, Whole Blood 80 mg/dL (60-115)
[2020-09-02] MEDS: Lactated Ringers 1,000 ML 50 ML IV (15:00)
--- NOTE | 2020-09-02 15:02 | MHC.SHP ---
Pre-Procedural Eval Section A The patient is an INPATIENT: Yes Changes since office visit: Yes New Medical Problems and Yes Changes in Medication; No Cold of Flu in the past 2 weeks and No Patient answered all questions The History & Physical has been completed within 30 days and I have reviewed it.: Yes Section B Chief Complaint: PNA Allergies: Allergies Allergy/AdvReac Type Severity Reaction Status Date / Time diatrizoate sodium Allergy Unknown HIVES Verified 07/19/20 11:38 [From HYPAQUE] Iodinated Contrast Media Allergy Unknown HIVES Verified 07/19/20 11:38 [IV Dye, Iodine Containing] penicillin V Allergy Unknown Hives Verified 07/19/20 11:38 Penicillins [PENICILLINS] Allergy Unknown RASH Verified 07/19/20 11:38 dulaglutide [Trulicity] AdvReac Unknown abdominal Verified 07/19/20 11:38 pain Plan Diagnosis/Plan: Unchanged I have reviewed the history and physical and performed a pertinent physical examination on my patient. No changes have occurred unless specified.
--- NOTE | 2020-09-02 15:36 | PM.OP ---
Brief Operative Note Date of Service: 09/02/20 Pre-op diagnosis: failure to thrive, G tube placement Post-op diagnosis: same Procedure: see op note Surgeon: Raghavendra Vann MD Anesthesia: MAC Estimated blood loss (mL): 0 Condition: stable Disposition: PACU
--- NOTE | 2020-09-02 15:36 | W.PM.OPN ---
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 Instrument: Olympus GIF H 190 J mid size upper endoscope Monitoring: Vital signs and clinical assessment, continuous EKG monitoring, Pulse oximetry, Carbon Dioxide monitoring and blood pressure monitoring were done throughout the procedure. Procedure: The patient was placed in the left lateral decubitis position and pre-procedure medications were administered and a bite block was placed. The endoscope was inserted into the mouth and advanced under direct vision to the third part of duodenum. A careful inspection was made as the upper endoscope was withdrawn including a retroflexed examination of the proximal stomach; Findings and interventions are described below. 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 Grade 2 flap valve on retroflexed examination of the cardia. Duodenum: Superficial ulceration and duodenitis noted in bulb An appropriate point was located for incision confirming with trans-illumination and one to one motion when pressing on the abdomen as well as needle aspiration of air on puncture. The wire was passed and drawn out through the mouth with 20 Fr PEG tube then attached. This was pulled thru using Ponsky placement method. Outer tube was at 2.5 cm from the internal bolster. 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 keep skin around site clean, wash with water as needed, keep dry thereafter. Recommend Pantoprazole 40 mg OD and sucralfate 1 g bid
[2020-09-02 16:33] LABS: Glucose, Whole Blood 68 mg/dL (60-115)
[2020-09-02] MEDS: Dextrose 5 % and 0.45 % NaCl 1,000 ML 50 ML IVCONT (16:42)
--- NOTE | 2020-09-02 18:01 | PC.NURSE ---
Patient npo majority of day pending peg tube placement. am metoprolol and diovan given dissolved in some water. oob to chair pivot 1-2 assist for a few hours prior to procedure. Sister Trisha at bedside updated/asked to stay in order to sign consent forms. patient back from [facility] without any issues. vss. 100% on room air. slit dressing placed under peg tube. previous diet resumed. sister fed pureed dinner without any coughing. Plan to initiate tube feedings in the am.
[2020-09-02 20:03] LABS: Glucose, Whole Blood 143 mg/dL (60-115)
[2020-09-03] VITALS (8 sets, daily range): BP systolic 106–120; BP diastolic 54–70; PULSE 52–74; RESP 12–24; TEMP 35.8–37.2; O2SAT 97–100
[2020-09-03 04:38] LABS: Glucose Urine UA >=1000 MG/DL (NEG); Leukocyte Esterase Urine NEG (NEG); Nitrite Urine NEG (NEG); Urine Blood NEG (NEG); Urine Ketones NEG (NEG); Urine Protein NEG (NEG-TRACE)
[2020-09-03 04:39] LABS: Appearance Urine CLEAR; Color Urine YELLOW
[2020-09-03 04:53] LABS: Bacteria Urine 1+ /LPF; Squamous Epithelial Cell Urine 1+ /LPF
[2020-09-03] MEDS: Doxycycline Hyclate 100 MG in 0.9 % Sodium Chloride 250 ML 166.67 MG IV ×2 (08:17→20:13)
[2020-09-03] MEDS: cefTRIAXone sodium 1 GM in 0.9 % Sodium Chloride 50 ML IV (08:17)
[2020-09-03] MEDS: Cholecalciferol (Vitamin D3) 25 MCG TABLET 50 MCG PO (08:17)
[2020-09-03] MEDS: Valsartan 160 MG TABLET PO (08:17)
[2020-09-03] MEDS: FLUoxetine HCl 10 MG CAPSULE PO (08:18)
[2020-09-03] MEDS: Metoprolol Succinate ER 25 MG TAB.ER.24H PO (08:18)
[2020-09-03] MEDS: Aspirin 81 MG TAB.CHEW PO (08:19)
[2020-09-03] MEDS: 0.9 % Sodium Chloride Flush 3 ML SYRINGE IVFLUSH ×2 (08:19→18:08)
[2020-09-03 11:15] LABS: Glucose, Whole Blood 145 mg/dL (60-115)
--- NOTE | 2020-09-03 13:37 | MHC.CLN ---
F/U PT WITH PEG PLACED 09/02/20 RESOLUTION REP RECOMMENDED PUREED WITH THIN 09/01/20 NOTED PT ATE 50% DINNER FED BY SISTER LAST NIGHT RECOMMEND TF GLUCERNA AT MAX GOAL RATE 50CC/HR WITH 120CC FREE WATER FLUSHES Q SHIFT TO PROVIDE 1200KCALS (29KCALS/KG), 50G PROTEIN (1.2G/KG), 1383CC TOTAL WATER FROM FORMULA AND FLUSHES (34CC/KG) START TF AT 20CC/HR AND INCREASE BY 10CC Q 4 HRS UNTIL MAX GOAL IS REACHED MONITOR TOLERANCE, RESIDUALS AND LYTES (MG, PHOS AND K+)
--- NOTE | 2020-09-03 14:10 | HO.POSTANES ---
Post Anesthesia Evaluation Post Anesthesia Evaluation Vital Signs: Vital Signs Temp Pulse Resp BP Pulse Ox 09/03/20 11:27 97.2 F 66 24 H 106/54 L 100 09/03/20 08:18 64 109/63 09/03/20 08:17 64 109/63 09/03/20 07:25 96.4 F L 52 12 109/63 100 09/03/20 04:00 98.2 F 57 18 114/64 97 Anesthesia: Monitored Mental Status: Awake Pain Control: Satisfactory Nausea/Vomiting: None Hydration: Adequate Anesthesia-Related Issues: No Anes. Related Issues
--- NOTE | 2020-09-03 14:48 | MHC.CM.PN ---
DP male 69 S/P PEG placement yesterday 09/02/20. [facility] home with [facility]. Referrals sent. CM will follow.
--- NOTE | 2020-09-03 15:49 | P.PNIM_ITS ---
Subjective Subjective Date of Service: 09/03/20 Interval History: Patient resting in bed in no distress, family feeding and he is tolerating diet, patient pointing to belly for pain at site of G-tube placement as per familys understanding since patient is nonverbal. ROS Unable to obtain review of system due to underlying dementia and developmental delay. Physical Exam Vital Signs: Vital Signs: Last Vital Signs Temp 98.5 F 09/03/20 15:17 Pulse 74 09/03/20 15:17 Resp 15 09/03/20 15:17 BP 115/67 09/03/20 15:17 Pulse Ox 99 09/03/20 15:17 Oxygen Flow Rate 2 08/31/20 14:31 Body Mass Index 15.0 Constitutional : Awake alert, not in distress, cachectic Neck : Normal inspection, no JVD Cardiovascular : RRR, S1 S2 Respiratory : No acute distress, lungs clear to auscultation, coarse breath sound at bases Gastrointestinal: soft, Normal bowel sounds, Non tender, G-tube site with no drainage, no redness Skin : Warm/Dry, No rash Neurological : Unable to obtain neuro examination, moving all 4 extremity, knees contracted Objective Data Current Medications Generic Name Dose Route Start Last Admin Trade Name Freq PRN Reason Stop Dose Admin Acetaminophen 650 mg 08/31/20 20:53 Acetaminophen Supp 650 Mg Supp.Rect IA Q6H PRN Pain, Mild (Pain Scale 1-3) Acetaminophen 650 mg 09/02/20 15:12 Acetaminophen 325 Mg Tablet PO ONCE PRN Pain, Mild (Pain Scale 1-3) Aspirin 81 mg 09/01/20 09:00 09/03/20 08:19 Aspirin 81 Mg Tab.Chew PO 81 mg DAILY [facility] Administration Fentanyl 25 mcg 09/02/20 15:08 Fentanyl Citrate/Pf 100 Mcg/2 Ml Vial IVPUSH Q5M PRN Pain, Moderate (Pain Scale 4-6 Fluoxetine HCl 10 mg 09/01/20 09:00 09/03/20 08:18 Fluoxetine Hcl 10 Mg Capsule PO 10 mg DAILY [facility] Administration Ceftriaxone Sodium 1 gm/ 50 mls @ 100 mls/hr 09/01/20 08:00 09/03/20 08:51 Sodium Chloride IV Infused Q24H [facility] Infusion Doxycycline Hyclate 100 mg/ 250 mls @ 166.67 mls/hr 09/01/20 08:00 09/03/20 09:56 Sodium Chloride IV Infused Q12H [facility] Infusion Lactated Ringer's 1,000 mls @ 50 mls/hr 09/02/20 15:15 09/03/20 11:17 Lr IV Not Given .Q20H [facility] Metoprolol Succinate 25 mg 09/01/20 09:00 09/03/20 08:18 Metoprolol Succinate Er 25 Mg Tab.Er.24h PO 25 mg DAILY [facility] Administration Protocol Omeprazole 20 mg 09/01/20 06:30 09/03/20 05:57 Omeprazole 20 Mg Capsule.Dr PO Not Given DAILY@0630 [facility] Ondansetron HCl 4 mg 09/02/20 15:08 Ondansetron Hcl 4 Mg/2 Ml Vial IVPUSH ONCE PRN Nausea and Vomiting Oxycodone HCl 5 mg 09/02/20 15:12 Oxycodone Hcl Immed Release 5 Mg Tablet PO ONCE PRN Pain, Severe (Pain Scale 7-10) Pharmacy Consult 1 each 08/31/20 19:47 Consult Rx Perform Med Rec MISCELLANE ONCE PRN Consult order Pharmacy Consult 1 each 08/31/20 20:54 Consult Rx Vancomycin Dosing MISCELLANE DAILY PRN Consult order Senna 17.2 mg 08/31/20 20:53 Sennosides 8.6 Mg Tablet PO BEDTIME PRN Constipation Sodium Chloride 3 ml 09/01/20 00:00 09/03/20 08:19 0.9 % Sodium Chloride Flush 3 Ml Syringe IVFLUSH 3 ml QSHIFT [facility] Administration Trazodone HCl 50 mg 08/31/20 20:58 Trazodone Hcl 50 Mg Tablet PO BEDTIME PRN Sleep Valsartan 160 mg 09/01/20 09:00 09/03/20 08:17 Valsartan 160 Mg Tablet PO 160 mg DAILY [facility] Administration Protocol Vitamin D 50 mcg 09/01/20 09:00 09/03/20 08:17 Cholecalciferol (Vitamin D3) 25 Mcg Tablet PO 50 mcg DAILY [facility] Administration Labs CBC & Chem 7: 09/02/20 05:53 09/02/20 05:53 Microbiology Microbiology Results: Microbiology 08/31/20 15:29 Blood - Venous Blood Culture - Preliminary No growth after 48 hours. 08/31/20 14:57 Blood - Venous Blood Culture - Preliminary No growth after 48 hours. 04/27/21 17:48 Urine clean catch - Clean Catch Midstream Urine Culture - Final Strep agalactiae (Grp B) Assessment and Plan (1) Pneumonia: Status: Acute (2) Adult failure to thrive: Status: Acute (3) Weight loss, unintentional: Status: Acute (4) Chronic idiopathic constipation: Status: Acute Assessment and Plan: 69-year-old male with a past medical history of hypertension, hyperlipidemia, diabetes, developmental delay, baseline nonverbal and bed-bound presented with generalized weakness/lethargy. Noted to have pneumonia. Toxic metabolic encephalopathy Resolved, Patient was noted to be lethargic at home with decreased by mouth intake At present patient is awake alert does not appear lethargic tolerating diet,seems to be at baseline. CT head showed no acute findings, UA positive with 3+ bacteria no WBC, urine culture grew strep agalactie likely contamination Aspiration Pneumonia Blood cultures x2 negative, patient afebrile normal WBC count Continue doxycycline and ceftriaxone day3/7 days Hypoxia Resolved Currently stable oxygenation 99% on room air, V/Q scan low probability for PE Adult failure to thrive Patient has decreased oral intake and weight loss as per the family, likely due to worsening dementia.s/p G-tube placement by GI , G-tube feeding started, continue by mouth feedings as well Severe protein calorie malnutrition Nutrition consult obtained started on G-tube feedings Transaminitis Uncler etiology, negative acute hepatitis panel right upper quadrant ultrasound and CT abdomen showed no acute findings except for constipation, follow liver panel. Constipation Dulcolax suppository p.r.n.. Microscopic hematuria repeat UA negative for blood, initial hematuria likely due to straight cath and trauma Diabetes Blood sugar stable. Not on home medications DVT prophylaxis: SCD boots Code status: Full code
[2020-09-03 16:08] LABS: Glucose, Whole Blood 119 mg/dL (60-115)
[2020-09-03 20:20] LABS: Glucose, Whole Blood 89 mg/dL (60-115)
[2020-09-04] VITALS (7 sets, daily range): BP systolic 94–121; BP diastolic 51–68; PULSE 62–82; RESP 16–18; TEMP 36.1–37; O2SAT 96–100
[2020-09-04] MEDS: 0.9 % Sodium Chloride Flush 3 ML SYRINGE IVFLUSH ×3 (00:32→17:06)
[2020-09-04 01:09] LABS: Glucose, Whole Blood 88 mg/dL (60-115)
[2020-09-04] MEDS: Omeprazole 20 MG CAPSULE.DR PO (05:45)
[2020-09-04 05:49] LABS: Glucose, Whole Blood 95 mg/dL (60-115)
[2020-09-04 06:41] LABS: Alanine Aminotransferase 1049 U/L (0-40); Albumin Level 3.2 g/dL (3.5-5.0); Alkaline Phosphatase 553 U/L (39-117); Aspartate Amino Transferase 237 U/L (5-37); Bilirubin Direct 0.5 mg/dL (0.0-0.5); Bilirubin Total 0.9 mg/dL (0.0-1.0); Total Protein 5.5 g/dL (6.5-8.0)
[2020-09-04 07:11] LABS: Glucose, Whole Blood 97 mg/dL (60-115)
[2020-09-04] MEDS: cefTRIAXone sodium 1 GM in 0.9 % Sodium Chloride 50 ML IV (07:25)
[2020-09-04] MEDS: Doxycycline Hyclate 100 MG in 0.9 % Sodium Chloride 250 ML 166.67 MG IV (07:25)
[2020-09-04] MEDS: FLUoxetine HCl 10 MG CAPSULE PO (07:26)
[2020-09-04] MEDS: Cholecalciferol (Vitamin D3) 25 MCG TABLET 50 MCG PO (07:26)
[2020-09-04] MEDS: Metoprolol Succinate ER 25 MG TAB.ER.24H PO (07:27)
[2020-09-04] MEDS: Valsartan 160 MG TABLET PO (07:27)
[2020-09-04] MEDS: Aspirin 81 MG TAB.CHEW PO (07:28)
--- NOTE | 2020-09-04 13:33 | P.PNIM_ITS ---
Subjective Subjective Date of Service: 09/04/20 Interval History: Sitting comfortably, does not appear to be in pain, tolerated breakfast well with no choking coughing. Cannot obtain review of system due to dementia developmental delay and non verbalization. Physical Exam Vital Signs: Vital Signs: Last Vital Signs Temp 97.5 F 09/04/20 11:47 Pulse 67 09/04/20 11:47 Resp 16 09/04/20 11:47 BP 106/67 09/04/20 11:47 Pulse Ox 100 09/04/20 11:47 Oxygen Flow Rate 2 08/31/20 14:31 Body Mass Index 15.0 Constitutional : Awake alert, not in distress, cachectic Neck : Normal inspection, no JVD Cardiovascular : RRR, S1 S2 Respiratory : No acute distress, lungs clear to auscultation, coarse breath sound at bases Gastrointestinal: soft, Normal bowel sounds, Non tender, G-tube site with no drainage, no redness Skin : Warm/Dry, No rash Neurological : moving all 4 extremity, knees contracted Objective Data Current Medications Generic Name Dose Route Start Last Admin Trade Name Freq PRN Reason Stop Dose Admin Acetaminophen 650 mg 08/31/20 20:53 Acetaminophen Supp 650 Mg Supp.Rect NE Q6H PRN Pain, Mild (Pain Scale 1-3) Acetaminophen 650 mg 09/02/20 15:12 Acetaminophen 325 Mg Tablet PO ONCE PRN Pain, Mild (Pain Scale 1-3) Aspirin 81 mg 09/01/20 09:00 09/04/20 07:28 Aspirin 81 Mg Tab.Chew PO 81 mg DAILY [facility] Administration Fentanyl 25 mcg 09/02/20 15:08 Fentanyl Citrate/Pf 100 Mcg/2 Ml Vial IVPUSH Q5M PRN Pain, Moderate (Pain Scale 4-6 Fluoxetine HCl 10 mg 09/01/20 09:00 09/04/20 07:26 Fluoxetine Hcl 10 Mg Capsule PO 10 mg DAILY [facility] Administration Ceftriaxone Sodium 1 gm/ 50 mls @ 100 mls/hr 09/01/20 08:00 09/04/20 08:18 Sodium Chloride IV Infused Q24H [facility] Infusion Doxycycline Hyclate 100 mg/ 250 mls @ 166.67 mls/hr 09/01/20 08:00 09/04/20 08:57 Sodium Chloride IV Infused Q12H [facility] Infusion Lactated Ringer's 1,000 mls @ 50 mls/hr 09/02/20 15:15 09/04/20 06:00 Lr IV Not Given .Q20H [facility] Metoprolol Succinate 25 mg 09/01/20 09:00 09/04/20 07:27 Metoprolol Succinate Er 25 Mg Tab.Er.24h PO 25 mg DAILY [facility] Administration Protocol Omeprazole 20 mg 09/01/20 06:30 09/04/20 05:45 Omeprazole 20 Mg Capsule.Dr PO 20 mg DAILY@0630 [facility] Administration Ondansetron HCl 4 mg 09/02/20 15:08 Ondansetron Hcl 4 Mg/2 Ml Vial IVPUSH ONCE PRN Nausea and Vomiting Oxycodone HCl 5 mg 09/02/20 15:12 Oxycodone Hcl Immed Release 5 Mg Tablet PO ONCE PRN Pain, Severe (Pain Scale 7-10) Pharmacy Consult 1 each 08/31/20 19:47 Consult Rx Perform Med Rec MISCELLANE ONCE PRN Consult order Pharmacy Consult 1 each 08/31/20 20:54 Consult Rx Vancomycin Dosing MISCELLANE DAILY PRN Consult order Senna 17.2 mg 08/31/20 20:53 Sennosides 8.6 Mg Tablet PO BEDTIME PRN Constipation Sodium Chloride 3 ml 09/01/20 00:00 09/04/20 07:26 0.9 % Sodium Chloride Flush 3 Ml Syringe IVFLUSH 3 ml QSHIFT [facility] Administration Trazodone HCl 50 mg 08/31/20 20:58 Trazodone Hcl 50 Mg Tablet PO BEDTIME PRN Sleep Valsartan 160 mg 09/01/20 09:00 09/04/20 07:27 Valsartan 160 Mg Tablet PO 160 mg DAILY [facility] Administration Protocol Vitamin D 50 mcg 09/01/20 09:00 09/04/20 07:26 Cholecalciferol (Vitamin D3) 25 Mcg Tablet PO 50 mcg DAILY [facility] Administration Labs CBC & Chem 7: 09/02/20 05:53 09/02/20 05:53 Microbiology Microbiology Results: Microbiology 08/31/20 15:29 Blood - Venous Blood Culture - Preliminary No growth after 48 hours. 08/31/20 14:57 Blood - Venous Blood Culture - Preliminary No growth after 48 hours. 08/31/20 17:48 Urine clean catch - Clean Catch Midstream Urine Culture - Final Strep agalactiae (Grp B) Assessment and Plan (1) Pneumonia: Status: Acute (2) Adult failure to thrive: Status: Acute (3) Chronic idiopathic constipation: Status: Acute (4) Weight loss, unintentional: Status: Acute Assessment and Plan: 69-year-old male with a past medical history of hypertension, hyperlipidemia, diabetes, developmental delay, baseline nonverbal and bed-bound presented with generalized weakness/lethargy. Noted to have pneumonia. Toxic metabolic encephalopathy Resolved, Patient was noted to be lethargic at home with decreased by mouth intake At present patient is awake alert does not appear lethargic tolerating diet,seems to be at baseline. CT head showed no acute findings, UA positive with 3+ bacteria no WBC, urine culture grew strep agalactie likely contamination. Aspiration Pneumonia Blood cultures x2 negative, patient afebrile normal WBC count On iv doxycycline and ceftriaxone day 4/5 days, will DC IV doxy due to rising liver enzymes, patient tolerating pureed diet with no shortness of breath, choking or cough. Hypoxia Resolved Currently stable oxygenation 99% on room air, V/Q scan low probability for PE Adult failure to thrive with severe protein calorie malnutrition decreased oral intake and weight loss likely due to worsening dementia.s/p G- tube placement and now on G-tube feeding Glucerna max 50 ml/hr with water bolus and tolerating oral feedings. DC IV fluid. 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 Transaminitis Uncler etiology, negative acute hepatitis panel, significant elevation in AST and ALT since admit, no tenderness to palpation right upper quadrant, right upper quadrant ultrasound and CT abdomen showed no acute findings, likely hepatic enzyme worsening related to enteral hyperalimentation, will follow liver enzymes discontinue Tylenol, if LFTs continue to rise will obtain GI eval Follow liver profile closely Constipation Dulcolax suppository p.r.n.. Microscopic hematuria repeat UA negative for blood, initial hematuria likely due to straight cath and trauma Diabetes Blood sugar stable. Not on home medications DVT prophylaxis: SCD boots Code status: Full code
[2020-09-05] VITALS (9 sets, daily range): BP systolic 77–127; BP diastolic 46–63; PULSE 59–71; RESP 12–32; TEMP 36.1–36.8; O2SAT 94–100
[2020-09-05] MEDS: 0.9 % Sodium Chloride Flush 3 ML SYRINGE IVFLUSH ×4 (00:16→20:55)
[2020-09-05 04:28] LABS: Glucose, Whole Blood 110 mg/dL (60-115)
[2020-09-05] MEDS: Omeprazole 20 MG CAPSULE.DR PO (05:36)
[2020-09-05 07:10] LABS: Alanine Aminotransferase 738 U/L (0-40); Albumin Level 3.2 g/dL (3.5-5.0); Alkaline Phosphatase 522 U/L (39-117); Aspartate Amino Transferase 129 U/L (5-37); Bilirubin Direct 0.3 mg/dL (0.0-0.5); Bilirubin Total 0.5 mg/dL (0.0-1.0); Total Protein 5.5 g/dL (6.5-8.0)
[2020-09-05] MEDS: cefTRIAXone sodium 1 GM in 0.9 % Sodium Chloride 50 ML IV (08:23)
[2020-09-05] MEDS: Aspirin 81 MG TAB.CHEW PO (10:45)
[2020-09-05] MEDS: FLUoxetine HCl 10 MG CAPSULE PO (10:45)
[2020-09-05] MEDS: Cholecalciferol (Vitamin D3) 25 MCG TABLET 50 MCG PO (10:45)
--- NOTE | 2020-09-05 13:39 | P.PNIM_ITS ---
Subjective Subjective Date of Service: 09/05/20 Interval History: Patient resting comfortably sister at bedside feeding breakfast, no evidence of choking coughing or shortness of breath patient complaining of mild discomfort at site of G-tube placement Patient has a way of communicating with sister to inform about pain by blinking eyes. Unable to obtain review of systems since patient nonverbal. Physical Exam Vital Signs: Vital Signs: Last Vital Signs Temp 98.2 F 09/05/20 12:00 Pulse 67 09/05/20 12:00 Resp 32 H 09/05/20 12:00 BP 94/52 L 09/05/20 12:00 Pulse Ox 98 09/05/20 12:00 Oxygen Flow Rate 2 08/31/20 14:31 Body Mass Index 15.0 Constitutional : Awake alert, not in distress, cachectic Neck : Normal inspection, no JVD Cardiovascular : RRR, S1 S2 Respiratory : No acute distress, lungs clear to auscultation, coarse breath sound at bases Gastrointestinal: soft, Normal bowel sounds, Non tender, G-tube site with no drainage, no redness, some dry old blood Skin : Warm/Dry, No rash Neurological : moving all 4 extremity, knees contracted Objective Data Current Medications Generic Name Dose Route Start Last Admin Trade Name Freq PRN Reason Stop Dose Admin Aspirin 81 mg 09/01/20 09:00 09/05/20 10:45 Aspirin 81 Mg Tab.Chew PO 81 mg DAILY [facility] Administration Fluoxetine HCl 10 mg 09/01/20 09:00 09/05/20 10:45 Fluoxetine Hcl 10 Mg Capsule PO 10 mg DAILY [facility] Administration Ceftriaxone Sodium 1 gm/ 50 mls @ 100 mls/hr 09/01/20 08:00 09/05/20 09:13 Sodium Chloride IV Infused Q24H [facility] Infusion Metoprolol Succinate 25 mg 09/01/20 09:00 09/05/20 10:37 Metoprolol Succinate Er 25 Mg Tab.Er.24h PO Not Given DAILY [facility] Protocol Omeprazole 20 mg 09/01/20 06:30 09/05/20 05:36 Omeprazole 20 Mg Capsule.Dr PO 20 mg DAILY@0630 [facility] Administration Pharmacy Consult 1 each 08/31/20 19:47 Consult Rx Perform Med Rec MISCELLANE ONCE PRN Consult order Pharmacy Consult 1 each 08/31/20 20:54 Consult Rx Vancomycin Dosing MISCELLANE DAILY PRN Consult order Senna 17.2 mg 08/31/20 20:53 Sennosides 8.6 Mg Tablet PO BEDTIME PRN Constipation Sodium Chloride 3 ml 09/01/20 00:00 09/05/20 08:28 0.9 % Sodium Chloride Flush 3 Ml Syringe IVFLUSH 3 ml QSHIFT [facility] Administration Trazodone HCl 50 mg 08/31/20 20:58 Trazodone Hcl 50 Mg Tablet PO BEDTIME PRN Sleep Vitamin D 50 mcg 09/01/20 09:00 09/05/20 10:45 Cholecalciferol (Vitamin D3) 25 Mcg Tablet PO 50 mcg DAILY [facility] Administration Labs CBC & Chem 7: 09/02/20 05:53 09/02/20 05:53 Microbiology Microbiology Results: Microbiology 08/31/20 15:29 Blood - Venous Blood Culture - Preliminary No growth after 48 hours. 08/31/20 14:57 Blood - Venous Blood Culture - Preliminary No growth after 48 hours. 08/31/20 17:48 Urine clean catch - Clean Catch Midstream Urine Culture - Final Strep agalactiae (Grp B) Assessment and Plan (1) Pneumonia: Status: Acute (2) Transaminitis: Status: Acute (3) Adult failure to thrive: Status: Acute (4) Chronic idiopathic constipation: Status: Acute (5) Weight loss, unintentional: Status: Acute Assessment and Plan: 69-year-old male with a past medical history of hypertension, hyperlipidemia, diabetes, developmental delay, baseline nonverbal and bed-bound presented with generalized weakness/lethargy. Noted to have pneumonia. Toxic metabolic encephalopathy Resolved, Patient was noted to be lethargic at home with decreased by mouth intake At present patient is awake alert does not appear lethargic tolerating di et,seems to be at baseline, sister at bedside agrees patient at baseline. CT head showed no acute findings, UA positive with 3+ bacteria no WBC, urine culture grew strep agalactie likely contamination. Aspiration Pneumonia Blood cultures x2 negative, patient afebrile normal WBC count On iv doxycycline and ceftriaxone day 5/5 days, will stop antibiotics, patient tolerating pureed diet with no shortness of breath, choking or cough. Hypotension Noted to have low blood pressure this morning on home medication Valsartan 160 mg and metoprolol 25 mg, not clear if patient was getting these medications at home will DC valsartan And hold beta-vidal follow blood pressure closely. Sister at bedside does not remember his medication, verified with pharmacy patient is on above medications at home. Hypoxia Resolved Currently stable oxygenation 99% on room air, V/Q scan low probability for PE Adult failure to thrive with severe protein calorie malnutrition decreased oral intake and weight loss likely due to worsening dementia.s/p G- tube placement and now on G-tube feeding Glucerna max 50 ml/hr with water bolus and tolerating oral feedings. will arrange for discahrage home in next 24 hours on bolus meals will d/w grain broker. Spoke with director social, patient niece who will be in tomorrow morning to receive teachings. Transaminitis Uncler etiology, negative acute hepatitis panel, AST and ALT bumped yesterday now trending down, no tenderness to palpation right upper quadrant, Abdominal ultrasound and CT abdomen showed no acute findings, likely hepatic enzyme worsening related to enteral hyperalimentation, avoid hepatotoxin discontinue Tylenol, follow LFTs if continued to trend down will avoid further workup Constipation Dulcolax suppository p.r.n.. Microscopic hematuria repeat UA negative for blood, initial hematuria likely due to straight cath and trauma Diabetes Blood sugar stable. Not on home medications DVT prophylaxis: SCD boots Code status: Full code
[2020-09-06 03:45] VITALS: BP 123/58; PULSE 63; RESP 18; TEMP 36.9; O2SAT 99
[2020-09-06] MEDS: Omeprazole 20 MG CAPSULE.DR PO (05:27)
[2020-09-06 05:34] LABS: Alanine Aminotransferase 559 U/L (0-40); Albumin Level 3.3 g/dL (3.5-5.0); Alkaline Phosphatase 454 U/L (39-117); Anion Gap 11 (12-20); Aspartate Amino Transferase 88 U/L (5-37); Bilirubin Direct 0.2 mg/dL (0.0-0.5); Bilirubin Total 0.4 mg/dL (0.0-1.0); Blood Urea Nitrogen 11 mg/dL (9-16); Calcium 9.1 mg/dL (8.4-10.2); Carbon Dioxide 25 mmol/L (22-29); Chloride 106 mmol/L (96-108); Estimated Glomerular Filt Rate > 60; Glucose Random 117 mg/dL (60-115); Potassium 4.3 mmol/L (3.3-5.1); Sodium 138 mmol/L (135-145); Total Protein 5.6 g/dL (6.5-8.0)
[2020-09-06 08:00] VITALS: BP 123/66; PULSE 67; RESP 18; TEMP 36.4; O2SAT 98
[2020-09-06] MEDS: Aspirin 81 MG TAB.CHEW PO (09:14)
[2020-09-06] MEDS: FLUoxetine HCl 10 MG CAPSULE PO (09:14)
[2020-09-06] MEDS: Cholecalciferol (Vitamin D3) 25 MCG TABLET 50 MCG PO (09:14)
[2020-09-06] MEDS: 0.9 % Sodium Chloride Flush 3 ML SYRINGE IVFLUSH ×2 (09:16→15:27)
--- NOTE | 2020-09-06 11:05 | MHC.CLN ---
RE: CONSULT PT PENDING D/C HOME; REQUESTING BOLUS TF RECOMMEND TF GLUCERNA BOLUS 1 CARTON (8OZ) X5 PER DAY WITH 120CC FREE WATER FLUSHES TID TO PROVIDE 1200KCALS (29KCALS/KG), 50G PROTEIN (1.2G/KG), 1383CC TOTAL WATER FROM FORMULA AND FLUSHES (34CC/KG) DISCUSSED WITH MD AND CM MONITOR TOLERANCE, RESIDUALS AND LYTES
--- NOTE | 2020-09-06 11:20 | PM.DS ---
DS: Providers Provider Date of Service: 09/06/20 Date of admission: 08/31/20 20:53 Primary care physician: Rajendra Quigley MD Consults: 08/31/20 20:54 Consult to Gastroenterology Routine Consulting Provider: [place] Reason for consultation: Failute to thrive; ?G-tube; Transaminitis DS: Diagnosis Discharge Diagnosis (1) Pneumonia: Status: Acute (2) Transaminitis: Status: Acute (3) Adult failure to thrive: Status: Acute (4) Chronic idiopathic constipation: Status: Acute (5) Weight loss, unintentional: Status: Acute (6) Toxic metabolic encephalopathy: Status: Acute (7) Hypotension: Status: Acute DS: Medications Discharge Medications Home Medications: Home Medications Medication Instructions Recorded Confirmed fluoxetine 1 cap PO QAM 03/11/20 08/31/20 aspirin 81 mg chewable tablet 1 tab PO QAM 04/21/20 08/31/20 fenofibrate nanocrystallized 1 tab PO BEDTIME 08/31/20 08/31/20 rosuvastatin 1 tab PO BEDTIME 08/31/20 08/31/20 Previous Rx's Medication Instructions Recorded omega-3 fatty acids-fish oil 340 1 cap PO BEDTIME #30 cap 03/25/20 mg-1,000 mg capsule omeprazole 20 mg capsule,delayed 20 mg PO QAM 30 Days #30 cap 06/11/20 release cholecalciferol (vitamin D3) 50 50 mcg PO DAILY #90 cap 07/12/20 mcg (2,000 unit) capsule megestrol 400 mg/10 mL (10 mL) 200 mg PO BID 30 Days #300 ml 08/10/20 oral suspension metoprolol succinate 25 mg 25 mg PO QAM #90 tab 08/14/20 tablet,extended release 24 hr dapagliflozin 10 mg tablet 10 mg PO QAM #90 tab 08/16/20 trazodone 50 mg tablet 50 mg PO BEDTIME PRN #30 tab 09/02/20 sennosides [Senna Lax] 17.2 mg PO BEDTIME PRN #30 tab 09/06/20 DS: Summary Hospital Course Hospital Course: He presented With generalized weakness and worsening mental status. Was diagnosed with pneumonia, likely aspiration and toxic metabolic encephalopathy. He was treated with IV antibitoics. He was diagnosed with failure to thrive. He ultimately underwent PEG placement and will be discharged home with RECOMMEND TF GLUCERNA BOLUS 1 CARTON (8OZ) X5 PER DAY WITH 120CC FREE WATER FLUSHES TID. Additionally, his LFTs were noted to be elevated, but these are down trending. There was no imaging evidence for stones or acute cholecystitis. Lastly, his BP was on the softer side. Valsartan was discontinued. He will be d/c on metoprolol He has passed speech eval and can tolerate pureed solids + thin liquids with tube feeds to supplement his home. Time Spent with Patient Time attestation: Total time spent providing and/or coordinating discharge services: Discharge coordination time: Greater than 30 minutes Physical Exam Vital Signs: Vital Signs: Last Vital Signs Temp 97.6 F 09/06/20 08:00 Pulse 67 09/06/20 08:00 Resp 18 09/06/20 08:00 BP 123/66 09/06/20 08:00 Pulse Ox 98 09/06/20 08:00 Oxygen Flow Rate 2 08/31/20 14:31 Body Mass Index 15.0 Const: Other: Constitutional : Awake alert, not in distress, cachectic Neck : Normal inspection, no JVD Cardiovascular : RRR, S1 S2 Respiratory : No acute distress, lungs clear to auscultation, coarse breath sound at bases Gastrointestinal: soft, Normal bowel sounds, Non tender, G-tube site with no drainage, no redness, some dry old blood Skin : Warm/Dry, No rash Neurological : moving all 4 extremity, knees contracted DS: Data Data Completed and Pending Labs on day of discharge: Laboratory Results - last 24 hr 09/06/20 04:10 Sodium 138 Potassium 4.3 Chloride 106 Carbon Dioxide 25 Anion Gap 11 L BUN 11 Creatinine 0.47 L Estim Creat Clear Calc 88.0 Estimated GFR > 60 Random Glucose 117 H D Calcium 9.1 Total Bilirubin 0.4 Direct Bilirubin 0.2 AST 88 H ALT 559 H Alkaline Phosphatase 454 H Total Protein 5.6 L Albumin 3.3 L Discharge Plan Discharge Patient Disposition: Home Health Service Discharge Diagnosis: Failure To Thrive Referrals: Rajendra Quigley MD [Primary Care Provider] - 1 Week Discharge Medications: New sennosides [Senna Lax] 8.6 mg Tablet 17.2 mg PO BEDTIME PRN (Reason: Constipation) Qty: 30 RF: 0 Continued Fish Oil 340-1,000 mg capsule 1 cap PO BEDTIME Qty: 30 RF: 6 omeprazole 20 mg capsule,delayed release(DR/EC) 20 mg PO QAM 30 Days Qty: 30 RF: 2 cholecalciferol (vitamin D3) 50 mcg (2,000 unit) capsule 50 mcg PO DAILY Qty: 90 RF: 1 megestrol 400 mg/10 mL (10 mL) suspension 200 mg PO BID 30 Days Qty: 300 RF: 0 metoprolol succinate 25 mg tablet extended release 24 hr 25 mg PO QAM Qty: 90 RF: 0 dapagliflozin [Farxiga] 10 mg tablet 10 mg PO QAM Qty: 90 RF: 0 trazodone 50 mg tablet 50 mg PO BEDTIME PRN (Reason: for insomnia) Qty: 30 RF: 2 rosuvastatin 40 mg tablet 1 tab PO BEDTIME RF: 0 fenofibrate nanocrystallized 145 mg tablet 1 tab PO BEDTIME RF: 0 fluoxetine 10 mg capsule 1 cap PO QAM RF: 0 aspirin 81 mg tablet,chewable 1 tab PO QAM RF: 0 Discontinued valsartan 320 mg tablet 160 mg PO QAM RF: 0 Discharge Orders: Discharge Order (Routine); Ordered 09/06/20 Ordered By: Cb Nicole Diet: other Activity on Discharge: As tolerated Stand Alone Forms: Patient Portal Discharge page Care Plan Goals: To stay healthy and out of the hospital. Health Concerns: Failure To Thrive Plan of Treatment: Continue tube feeding diet as follows: RECOMMEND TF GLUCERNA BOLUS 1 CARTON (8OZ) X5 PER DAY WITH 120CC FREE WATER FLUSHES TID Assessment: 69 yo M admitted for FTT. Treated for infections. PEG tube placed. Will be d/c home with tube feeds as above.
[2020-09-06 11:44] VITALS: BP 115/68; PULSE 69; RESP 20; TEMP 36.4; O2SAT 98
--- NOTE | 2020-09-06 11:53 | MHC.SL.SWA ---
Speech Pathologist Impression: Risk of Aspiration Oralpharyngeal Dysphagia Risk of Aspiration Due to: Lethargy Poor PO Intake Reduced Cognition Dysphasia Diet Status: No Change Liquid Consistency and Strategies for Safe Swallow: Liquid Intake Recommendation: Thin Liquid Intake Strategies: Liquids by Teaspoon Only Solid Food Consistency: Dietary Recommendations: Pureed (NDD1) Oral Medication Intake: Crushed with Puree Compensatory Strategies and Precautions to be Taken for Safe Swallow: Sitting Upright (90 deg) Liquids from Spoon Small Bites and Sips Alternate Liquids/Solids Rate of Ingestion Change Oral Check Supervision While Eating and Drinking for Safe Swallow: Total Assistance Foods to Avoid: Swallowing Recommended Treatments: Compens. Strategy Educat. Recommendation for Speech: Inpatient Speech Therapy Comment: STORE CLERK to follow up 1x time with RN tomorrow morning to ensure tolerance. Patient appears to be on appropriate diet textures. Refrigeration Engineering Teacher Clinican/Clinical Fellow: No Supervisory Statement: I have reviewed and agree with the student/clinical fellow's documentation: N/A Speech Language Pathologist: Kathia Chavez M.A., CCC-STORE CLERK
--- NOTE | 2020-09-06 13:10 | MHC.CM.PN ---
IMM 09/06/20 Male 69 DX PNA is discharged to home today via BLS scheduled for 5:30pm. [facility] providing supplies and formula for TF. [facility] to meet @ home after dc for management education enteral feedings.
== END 2020-09-06 18:30 | disposition home health service (06) | DRG 177 ==
LOC: HO.ED 14:12 → HO.EDOVER 21:00 → HO.IMC 09-01 11:28
PROVIDERS: Hospitalist; Internal Medicine Gastroenterology; Physician Assistant; Student in an Organized Health Care Education/Training Program; Admitting Provider Hospitalist; Emergency Provider Student in an Organized Health Care Education/Training Program; PCP Internal Medicine; Visit Provider Family Medicine
PROC: 0DH63UZ Insertion of Feeding Device into Stomach, Percutaneous Approach (ICD-10-PCS; CPT 43246; principal; 2020-09-02 14:30)
DX: J69.0 Pneumonitis due to inhalation of food and vomit (principal); E43 Unspecified severe protein-calorie malnutrition; G92 Toxic encephalopathy; K31.811 Angiodysplasia of stomach and duodenum with bleeding; K29.71 Gastritis, unspecified, with bleeding; Z68.1 Body mass index [BMI] 19.9 or less, adult; R62.7 Adult failure to thrive; F03.90 Unspecified dementia, unspecified severity, without behavioral disturbance, psychotic disturbance, mood disturbance, and anxiety; R31.29 Other microscopic hematuria; R74.01 Elevation of levels of liver transaminase levels; E11.9 Type 2 diabetes mellitus without complications; K44.9 Diaphragmatic hernia without obstruction or gangrene; K26.9 Duodenal ulcer, unspecified as acute or chronic, without hemorrhage or perforation; K59.04 Chronic idiopathic constipation; I10 Essential (primary) hypertension; E78.5 Hyperlipidemia, unspecified; F32.9 Major depressive disorder, single episode, unspecified; R62.50 Unspecified lack of expected normal physiological development in childhood; Z20.822 Contact with and (suspected) exposure to COVID-19; Z88.0 Allergy status to penicillin; Z79.82 Long term (current) use of aspirin; Z79.899 Other long term (current) drug therapy
CPT/HCPCS: 0241U; 11104; 36415; 70450; 71045; 71250; 74176; 76705; 78580; 80048; 80053; 80076; 81001; 81003; 82140; 82550; 82947; 83605; 83735; 84484; 85025; 85027; 85379; 85610; 85730; 86704; 86706; 86709; 86803; 87040; 87086; 87147; 87340; 92610; 93005; 96365; 96366; 96368; 99285; A9540; J0456; J0696; J3370

== ENCOUNTER → 2020-09-27 08:30 | Outpatient (BNVA) | payer MEDICARE, MEDICAID, SELFPAY | PROVIDERS: PCP Internal Medicine; Visit Provider Internal Medicine Gastroenterology | DX: Z13.89 Encounter for screening for other disorder (principal) | CPT/HCPCS: Q3014 ==

== ENCOUNTER → 2020-11-11 09:15 | Outpatient (BNVA) | payer MEDICARE, MEDICAID, SELFPAY | PROVIDERS: Visit Provider Internal Medicine Gastroenterology | DX: Z13.89 Encounter for screening for other disorder (principal) | CPT/HCPCS: Q3014 ==

== ENCOUNTER 2020-12-07 14:23 | Outpatient (REF) | payer OTHER, MEDICARE, MEDICAID, SELFPAY ==
[2020-12-07 15:10] LABS: Influenza A PCR NEGATIVE (Negative); Influenza B PCR NEGATIVE (Negative); Resp Syncy Virus RNA Qual PCR NEGATIVE (Negative); SARS COV2 PCR INHOUSE NEGATIVE (Negative)
== END 2020-12-07 14:24 | disposition home or self-care (01) ==
LOC: HO.HVNA 14:23
PROVIDERS: Visit Provider Internal Medicine Hematology & Oncology
DX: Z20.822 Contact with and (suspected) exposure to COVID-19 (principal)
CPT/HCPCS: 0241U; 36415

== ENCOUNTER → 2021-02-10 09:00 | Outpatient (BNVA) | payer MEDICARE, MEDICAID, SELFPAY | PROVIDERS: Visit Provider Internal Medicine Gastroenterology | CPT/HCPCS: Q3014 ==

== ENCOUNTER 2021-03-11 10:46 | Outpatient (REF) | payer OTHER, MEDICARE, MEDICAID, SELFPAY ==
[2021-03-11 11:30] LABS: Appearance Urine CLOUDY; Color Urine ORANGE; Glucose Urine UA NEG (NEG); Leukocyte Esterase Urine 3+ (NEG); Nitrite Urine POS (NEG); PH 7.5 (5.0-8.0); Specific Gravity - Urine 1.015 (1.005-1.025); UACC Culture Trigger YES; Urine Blood NEG (NEG); Urine Ketones NEG (NEG); Urine Protein NEG (NEG-TRACE)
[2021-03-11 12:19] LABS: Bacteria Urine 2+ /LPF; Mucus Urine 2+ /LPF; RBC Urine 0 /HPF (0); Squamous Epithelial Cell Urine TRACE /LPF
== END 2021-03-11 10:47 | disposition home or self-care (01) ==
LOC: HO.LNP 10:46
PROVIDERS: Visit Provider Internal Medicine
DX: R30.0 Dysuria (principal)
CPT/HCPCS: 81001; 81003; 87086

== ENCOUNTER 2021-03-24 08:30 | Outpatient (REF) | payer MEDICARE, SELFPAY ==
[2021-03-24 09:13] LABS: Basophils Percent Auto 0.3 % (0-2); Eosinophils Percent Auto 0.9 % (0-4); Hematocrit 42.3 % (42.0-52.0); Hemoglobin 13.9 g/dl (14.0-18.0); Imm Gran Abs Auto 0.02 X10*3/uL (0.00-0.03); Imm Gran Pct Auto 0.6 % (0.0-0.4); Lymphocytes Absolute Auto 1.5 X10*3/uL (1.2-4.9); Lymphocytes Percent Auto 42.5 % (20-40); MANUAL DIFF FLAG SCAN; Mean Corpuscular HGB Conc 32.9 g/dl (31.0-36.0); Mean Corpuscular Hemoglobin 28.3 pg (27.0-33.0); Mean Corpuscular Volume 86.2 fL (80.0-98.0); Mean Platelet Volume 10.9 fL (9.4-12.4); Monocytes Absolute Auto 0.3 X10*3/uL (0.1-1.2); Monocytes Percent Auto 8.1 % (2-11); Neutrophils Absolute Auto 1.7 x10*3/uL (2.0-8.3); Neutrophils Percent Auto 47.6 % (45-73); PLT CLUMP 1; Red Blood Count 4.91 X10*6/uL (4.60-5.80); SCAN SMEAR FLAG 1
[2021-03-24 09:14] LABS: Platelet Count 118 X10*3/uL (160-400); White Blood Count 3.5 X10*3/uL (4.8-10.8)
[2021-03-24 09:20] LABS: Estimated Average Glucose 111 mg/dL; Hemoglobin A1c % 5.5 %
[2021-03-24 09:26] LABS: INTERNATIONAL NORM RATIO 1.1 (0.9-1.1); Prothrombin Time 12.6 SEC (9.9-13.0)
[2021-03-24 09:36] LABS: Alanine Aminotransferase 93 U/L (0-40); Albumin Level 4.4 g/dL (3.5-5.0); Alkaline Phosphatase 111 U/L (39-117); Anion Gap 14 (12-20); Aspartate Amino Transferase 30 U/L (5-37); Bilirubin Total 0.5 mg/dL (0.0-1.0); Blood Urea Nitrogen 12 mg/dL (9-16); C Reactive Protein 0.45 mg/dL (< or = 0.50); Calcium 9.4 mg/dL (8.4-10.2); Carbon Dioxide 27 mmol/L (22-29); Chloride 100 mmol/L (96-108); Cholesterol 221 mg/dL; Estimated Glomerular Filt Rate > 60; Glucose Fasting 100 mg/dL (60-99); HDL Cholesterol 66 mg/dL; LDL Cholesterol Calculated 126 mg/dl; Potassium 4.2 mmol/L (3.3-5.1); Sodium 137 mmol/L (135-145); Total Protein 7.5 g/dL (6.5-8.0); Triglycerides 145 mg/dL
[2021-03-24 09:45] LABS: SLIDE REVIEW VERIFIED
[2021-03-24 09:56] LABS: TSH reflex Free T4 1.35 uIU/mL (0.32-4.0)
== END 2021-03-24 08:31 | disposition home or self-care (01) ==
LOC: HO.LAB 08:30
PROVIDERS: Absent Provider Internal Medicine Gastroenterology; PCP Internal Medicine; Visit Provider Internal Medicine
DX: E78.00 Pure hypercholesterolemia, unspecified (principal); I10 Essential (primary) hypertension; E11.9 Type 2 diabetes mellitus without complications; R63.4 Abnormal weight loss
CPT/HCPCS: 36415; 80053; 80061; 83036; 84134; 84443; 85025; 85610; 86140

== ENCOUNTER → 2021-08-18 12:08 | Outpatient (BNVA) | payer MEDICARE, MEDICAID, SELFPAY | PROVIDERS: PCP Internal Medicine; Referring Provider Internal Medicine; Visit Provider Internal Medicine Gastroenterology | DX: Z12.11 Encounter for screening for malignant neoplasm of colon (principal); K59.04 Chronic idiopathic constipation; K59.09 Other constipation; K25.9 Gastric ulcer, unspecified as acute or chronic, without hemorrhage or perforation; E55.9 Vitamin D deficiency, unspecified; R62.7 Adult failure to thrive | CPT/HCPCS: 99212 ==

== ENCOUNTER 2021-12-26 07:13 | Outpatient (REF) | payer OTHER, MEDICARE, MEDICAID, SELFPAY ==
[2021-12-26 09:09] LABS: Cholesterol 212 mg/dL
== END 2021-12-26 07:14 | disposition home or self-care (01) ==
LOC: HO.LAB 07:13
PROVIDERS: PCP Internal Medicine; Visit Provider Internal Medicine
DX: E78.2 Mixed hyperlipidemia (principal)
CPT/HCPCS: 36415; 82465

== ENCOUNTER → 2021-12-29 10:53 | Outpatient (BNVA) | payer MEDICARE, MEDICAID, SELFPAY | PROVIDERS: PCP Internal Medicine; Visit Provider Internal Medicine Gastroenterology | DX: R62.7 Adult failure to thrive (principal); Z68.1 Body mass index [BMI] 19.9 or less, adult; K29.50 Unspecified chronic gastritis without bleeding; K59.04 Chronic idiopathic constipation; K25.9 Gastric ulcer, unspecified as acute or chronic, without hemorrhage or perforation; R13.14 Dysphagia, pharyngoesophageal phase; Z93.1 Gastrostomy status | CPT/HCPCS: 99212 ==

== ENCOUNTER 2021-12-30 06:16 | Day surgery (SDC) | payer MEDICARE, MEDICAID, SELFPAY ==
[2021-12-30 06:39] VITALS: BP 130/62; PULSE 52; RESP 16; TEMP 36.4; O2SAT 97
[2021-12-30 06:41] LABS: Glucose, Whole Blood 76 mg/dL (60-115)
--- NOTE | 2021-12-30 06:42 | PC.NURSE ---
EMTS/cousin Moses Nichols at bedside to assist with admission questions. Guardian will be updated and contacted when arrives. Patient speaks English. Moses interpreted and pt answered feeling well. Asked hypoglycemic symptom questions and patient denied all. asymptomatic on physical assessment. dr. hodge will be updated.
[2021-12-30 06:45] VITALS: BMI 16.8
--- NOTE | 2021-12-30 07:26 | PC.NURSE ---
Patient guardian arrived at 0705 and patient medication list updated as reflected. Guardian stated no longer taking DM meds. Dr. Bishop updated regarding BS result and stated patient to have glass apple juice which has been consumed at this time. Ignacia sales office assistant at bedside to interpret for sister Trisha.
--- NOTE | 2021-12-30 07:32 | MHC.SHP ---
Pre-Procedural Eval Section A Date of Service: 12/30/21 The patient is an INPATIENT: No Changes since office visit: No Cold of Flu in the past 2 weeks, No New Medical Problems and No Changes in Medication The History & Physical has been completed within 30 days and I have reviewed it.: Yes Section B Chief Complaint: Encounter for attention to gastrostomy Allergies: Allergies Allergy/AdvReac Type Severity Reaction Status Date / Time diatrizoate sodium Allergy Unknown HIVES Verified 12/30/21 06:51 [From HYPAQUE] Iodinated Contrast Media Allergy Unknown HIVES Verified 12/30/21 06:51 [IV Dye, Iodine Containing] penicillin V Allergy Unknown Hives Verified 12/30/21 06:51 Penicillins [PENICILLINS] Allergy Unknown RASH Verified 12/30/21 06:51 dulaglutide [Trulicity] AdvReac Unknown abdominal Verified 12/30/21 06:51 pain Plan I have reviewed the history and physical and performed a pertinent physical examination on my patient. No changes have occurred unless specified.
--- NOTE | 2021-12-30 07:53 | PM.PROC ---
Brief Operative Note Date of procedure: 12/30/21 Pre-op diagnosis: gastrostomy status Post-op diagnosis: same Procedure: CHANGE OF GASTROSTOMY TUBE Consent obtained from Patient's sister and Luci STANLEY Possible complications of bleeding and pain at gastrostomy site was reviewed. Procedure was performed in OR room 3 Existing PEG tube was removed with gentle pressure A 20 F THO replacement gastrostomy tube was inserted easily. Gastrostomy balloon was inflated with 9 ml of saline. External bolster was positioned at 4 cms from the anterior abdominal wall. PEG tube was flushed easily with normal saline and gastric contents were aspirated. RECOMMENDATIONS: 1. PEG tube can be used for tube feedings immediately. 2. PEG tube change at [facility] [place] in 8 to 12 months Anesthesia: none Surgeon: Los Bishop Pathology: none sent Condition: stable Disposition: PACU
[2021-12-30 07:55] VITALS: BP 149/71; PULSE 53; RESP 17; TEMP 36.2; O2SAT 100
== END 2021-12-30 08:10 | disposition home or self-care (01) ==
PROVIDERS: PCP Internal Medicine; Visit Provider Internal Medicine Gastroenterology
PROC: (CPT 43762; principal; 2021-12-30 07:30)
DX: Z43.1 Encounter for attention to gastrostomy (principal); K59.04 Chronic idiopathic constipation; R62.50 Unspecified lack of expected normal physiological development in childhood; K29.50 Unspecified chronic gastritis without bleeding; R62.7 Adult failure to thrive; F03.90 Unspecified dementia, unspecified severity, without behavioral disturbance, psychotic disturbance, mood disturbance, and anxiety; K25.9 Gastric ulcer, unspecified as acute or chronic, without hemorrhage or perforation; I10 Essential (primary) hypertension; E55.9 Vitamin D deficiency, unspecified; E11.42 Type 2 diabetes mellitus with diabetic polyneuropathy; E11.21 Type 2 diabetes mellitus with diabetic nephropathy; Z79.899 Other long term (current) drug therapy; Z88.0 Allergy status to penicillin; Z88.8 Allergy status to other drugs, medicaments and biological substances
CPT/HCPCS: 43762; 82947

== ENCOUNTER 2022-05-09 09:51 | Outpatient (REF) | payer OTHER, MEDICARE, MEDICAID, SELFPAY ==
--- NOTE | ~2022-05-09 | XR_ITS ---
EXAMINATION: XR CHEST CLINICAL INFORMATION: Others specified symptoms and signs involving the circulatory. COMPARISON: Chest radiograph 08/31/2020. TECHNIQUE: Frontal view of the chest was obtained. FINDINGS: Stable appearance of the cardiomediastinal silhouette. No focal airspace opacity, pleural effusion or pneumothorax. No acute osseous abnormalities. The visualized upper abdomen is within normal limits. XR/XR chest 1V IMPRESSION: No acute cardiopulmonary findings. However, it is important to note of the medial aspect of the lung apices and thoracic inlet is suboptimally assessed due to overlying shadowing from the patient's chin. If indicated, repeat examination could be obtained.
== END 2022-05-09 09:52 | disposition home or self-care (01) ==
LOC: HO.XRAY 09:51
PROVIDERS: PCP Internal Medicine; Visit Provider Internal Medicine
DX: R09.89 Other specified symptoms and signs involving the circulatory and respiratory systems (principal)
CPT/HCPCS: 71045

== ENCOUNTER 2022-05-13 08:54 | Outpatient (REF) | payer OTHER, MEDICARE, MEDICAID, SELFPAY ==
[2022-05-13 09:40] LABS: Basophils Percent Auto 0.5 % (0-2); Mean Corpuscular Volume 88.5 fL (80.0-98.0); PLT CLUMP 1; SCAN SMEAR FLAG 1
[2022-05-13 09:42] LABS: Hematocrit 40.9 % (42.0-52.0); Hemoglobin 12.9 g/dl (14.0-18.0); Imm Gran Abs Auto 0.01 X10*3/uL (0.00-0.03); Imm Gran Pct Auto 0.2 % (0.0-0.4); Lymphocytes Absolute Auto 1.6 X10*3/uL (1.2-4.9); Lymphocytes Percent Auto 39.5 % (20-40); Mean Corpuscular HGB Conc 31.5 g/dl (31.0-36.0); Mean Corpuscular Hemoglobin 27.9 pg (27.0-33.0); Mean Platelet Volume 10.5 fL (9.4-12.4); Monocytes Absolute Auto 0.2 X10*3/uL (0.1-1.2); Monocytes Percent Auto 4.9 % (2-11); Neutrophils Absolute Auto 2.2 x10*3/uL (2.0-8.3); Neutrophils Percent Auto 53.9 % (45-73); Red Blood Count 4.62 X10*6/uL (4.60-5.80); Red Cell Distribution Width 13.6 % (11.0-16.0)
[2022-05-13 09:44] LABS: MANUAL DIFF FLAG NO; Platelet Count 108 X10*3/uL (160-400); White Blood Count 4.1 X10*3/uL (4.8-10.8)
[2022-05-13 10:17] LABS: Estimated Average Glucose 103 mg/dL; Hemoglobin A1c % 5.2 %
[2022-05-13 10:24] LABS: Alanine Aminotransferase 169 U/L (0-40); Albumin Level 3.9 g/dL (3.5-5.0); Alkaline Phosphatase 150 U/L (39-117); Anion Gap 12 (12-20); Aspartate Amino Transferase 82 U/L (5-37); Bilirubin Total 0.4 mg/dL (0.0-1.0); Blood Urea Nitrogen 13 mg/dL (9-16); Calcium 9.2 mg/dL (8.4-10.2); Carbon Dioxide 29 mmol/L (22-29); Chloride 102 mmol/L (96-108); Cholesterol 226 mg/dL; Estimated Glomerular Filt Rate > 60; Glucose Fasting 85 mg/dL (60-99); HDL Cholesterol 63 mg/dL; LDL Cholesterol Calculated 136 mg/dl; Potassium 4.3 mmol/L (3.3-5.1); Sodium 139 mmol/L (135-145); Triglycerides 135 mg/dL
[2022-05-13 10:43] LABS: TSH reflex Free T4 2.03 uIU/mL (0.32-4.0); Vitamin D 25-OH Total 16.3 ng/mL (>30)
[2022-05-13 10:54] LABS: Folate 12.5 ng/mL (> or = 4.0); Vitamin B12 1144 pg/mL (200-900)
== END 2022-05-13 08:55 | disposition home or self-care (01) ==
LOC: HO.LAB 08:54
PROVIDERS: PCP Internal Medicine Gastroenterology; Visit Provider Internal Medicine
DX: E11.9 Type 2 diabetes mellitus without complications (principal); E53.8 Deficiency of other specified B group vitamins; E55.9 Vitamin D deficiency, unspecified; E78.00 Pure hypercholesterolemia, unspecified; I10 Essential (primary) hypertension
CPT/HCPCS: 36415; 80053; 80061; 82306; 82607; 82746; 83036; 84443; 85025

== ENCOUNTER → 2022-05-18 09:10 | Outpatient (BNVA) | payer OTHER, MEDICARE, MEDICAID, SELFPAY | PROVIDERS: PCP Internal Medicine; Visit Provider Internal Medicine Gastroenterology | DX: Z12.11 Encounter for screening for malignant neoplasm of colon (principal); K59.09 Other constipation; R13.14 Dysphagia, pharyngoesophageal phase; E55.9 Vitamin D deficiency, unspecified; Z93.1 Gastrostomy status | CPT/HCPCS: 99212 ==

== ENCOUNTER 2022-08-28 09:28 | Emergency (ER) | payer MEDICARE, MEDICAID, SELFPAY ==
--- NOTE | ~2022-08-28 | XR_ITS ---
EXAMINATION: XR ABDOMEN KUB CLINICAL INDICATION: G-tube placement COMPARISON: None available. TECHNIQUE: AP view of the abdomen. FINDINGS: G-tube is in place the balloon of which is inflated, contrast has been injected opacifying portion of the stomach, duodenum and proximal small bowel's. No evidence of contrast leak. XR/XR KUB IMPRESSION: * No evidence of contrast leak. * G-tube in place properly positioned.
[2022-08-28 09:31] VITALS: BP 158/81; PULSE 54; O2SAT 99
[2022-08-28 09:36] VITALS: BP 173/71; PULSE 54; RESP 16; TEMP 36.9; O2SAT 99; BMI 15.9
--- NOTE | 2022-08-28 09:36 | ED_ITS ---
HPI - General Adult General Chief complaint: General Medical <CHASIDY Albert - Last Filed: 08/28/22 11:07> Stated complaint: G-TUBE ISSUE PER EMS <CHASIDY Albert - Last Filed: 08/28/22 11:07> Time Seen by Provider: 08/28/22 09:29 <CHASIDY Albert - Last Filed: 08/28/22 11:07> Source: family and EMS <CHASIDY Albert - Last Filed: 08/28/22 11:07> Mode of arrival: EMS <CHASIDY Ablert - Last Filed: 08/28/22 11:07> Limitations: other (nonverbal) <CHASIDY Albert - Last Filed: 08/28/22 11:07> History of Present Illness HPI narrative: 71 yo male with history of mental disability, DM2, HTN, dysphagia s/p PEG, encephalopathy, nonverbal at baseline who presents to the ER for evaluation after his PEG tube came out last night at 9pm at home. Family called the GI office today who instructed them to come to the ER for replacement. He has had the PEG for the last couple of years. He is NPO. He is on hospice care at home. <CHASIDY Albert - Last Filed: 08/28/22 11:07> MD complaint: PEG fell out <CHASIDY Albert - Last Filed: 08/28/22 11:07> Onset (ago): hour(s) (12) <CHASIDY Albert - Last Filed: 08/28/22 11:07> Location: abdomen <CHASIDY Albert - Last Filed: 08/28/22 11:07> Relieving factors: none <CHASIDY Ablert - Last Filed: 08/28/22 11:07> Exacerbating factors: none <CHASIDY Albert - Last Filed: 08/28/22 11:07> Treatments prior to arrival: none <CHASIDY Albert - Last Filed: 08/28/22 11:07> Related Data Home medications: Home Medications Medication Instructions Recorded Confirmed miscellaneous medical supply ea miscellaneous 08/25/21 08/17/22 miscellaneous medical supply ea miscellaneous 08/25/21 08/17/22 clotrimazole 1 % topical cream appl topical DAILY 10/07/21 08/17/22 diphenhydramine HCl 25 mg tablet 25 mg PO TID PRN 10/07/21 08/17/22 guaifenesin 100 mg/5 mL oral liquid 200 mg PO Q4H PRN 10/07/21 08/17/22 dapagliflozin 10 mg tablet 10 mg PO QAM 04/16/22 08/17/22 (Farxiga) Previous Rx's Medication Instructions Recorded sennosides 8.6 mg tablet (Senna 17.2 mg PO BEDTIME PRN 09/06/20 Lax) Constipation #30 tabs nut.tx.gluc.intol,lac-free,soy 1 ea feeding tube QID 30 days #120 08/19/21 (Glytrol oral liquid) multiple units AIR CONCENTRATOR #1 ea 09/01/21 BRODA CHAIR #1 ea 09/01/21 ammonium lactate 5 % lotion 1 appl topical BID PRN dry skin 10/07/21 (Lac-Hydrin Five) #226 grams GLYTROL #90 ea 10/09/21 ADULT DIAPERS #100 ea 10/10/21 ADULT WIPES #100 ea 10/10/21 HOSPITAL BED #1 ea 10/10/21 miscellaneous medical supply 1 ea miscellaneous DAILY #1 ea 10/11/21 miscellaneous medical supply 1 ea miscellaneous DAILY #1 ea 10/11/21 multivitamin 1 tab PO QAM 90 days #90 tabs 12/29/21 fluoxetine 10 mg capsule 10 mg PO QAM #90 caps 04/28/22 trazodone 100 mg tablet 100 mg PO BEDTIME PRN for insomnia 04/28/22 30 days #30 tabs guaifenesin 600 mg tablet, 600 mg PO BID PRN congestion #60 05/17/22 extended release 12 hr (Mucinex) tabs cholecalciferol (vitamin D3) 125 125 mcg PO .COMPLEX 90 days #52 mL 05/18/22 mcg/mL (5,000 unit/mL) oral drops sodium phosphates 19 gram-7 118 ml LA ONCE PRN severe 06/05/22 gram/118 mL enema (Fleet Enema) constipation 1 day #10 ea acetaminophen 160 mg/5 mL oral 640 mg (20 mL) PO Q6H PRN pain 06/16/22 suspension (Children's Tylenol) #360 mL diphenhydramine HCl 12.5 mg/5 mL 25 mg (10 mL) PO Q6H PRN allergy 06/20/22 oral liquid (Allergy symptoms #150 mL (diphenhydramine)) blood-glucose meter (FreeStyle #1 ea 06/28/22 Lite Meter kit) lidocaine 5 % topical ointment 1 appl topical QID PRN pain 15 07/10/22 days #60 grams azithromycin 250 mg tablet See Rx Instructions PO .COMPLEX #6 08/01/22 tabs camphor-menthol 0.5 %-0.5 % lotion 1 appl topical BID-QID PRN itching 08/15/22 (Sarna Original) #222 mL lactulose 10 gram/15 mL oral 20 g (30 mL) PO DAILY constipation 08/16/22 solution #473 mL omeprazole 20 mg capsule,delayed 20 mg PO DAILY 30 days #30 caps 08/16/22 release guaifenesin 100 mg/5 mL oral 200 mg (10 mL) PO Q4H PRN cough 08/23/22 liquid (Tussin) #473 mL <CHASIDY Albert - Last Filed: 08/28/22 11:07> Allergies/adverse reactions: Allergies Allergy/AdvReac Type Severity Reaction Status Date / Time diatrizoate sodium Allergy Unknown HIVES Verified 08/17/22 10:33 [From HYPAQUE] Iodinated Contrast Media Allergy Unknown HIVES Verified 08/17/22 10:33 [IV Dye, Iodine Containing] penicillin V Allergy Unknown Hives Verified 08/17/22 10:33 Penicillins [PENICILLINS] Allergy Unknown RASH Verified 08/17/22 10:33 dulaglutide [Trulicity] AdvReac Unknown abdominal Verified 08/17/22 10:33 pain <CHASIDY Albert - Last Filed: 08/28/22 11:07> Review of Systems Review of Systems: Yes all other systems are reviewed and are negative <CHASIDY Albert - Last Filed: 08/28/22 11:07> PMFSH Past Medical History Medical History: Medical History Benign essential hypertension Dementia Dementia Depression Developmental delay, mild Diabetes mellitus Dyslipidemia Essential hypertension Gastric ulcer without hemorrhage or perforation Gastritis History of Helicobacter pylori infection Insomnia Mixed hyperlipidemia Proteinuria Skin sore Tubular adenoma 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 Unexplained weight loss Unsteady gait Vitamin D deficiency <CHASIDY Albret - Last Filed: 08/28/22 11:07> Surgical History: Surgical History History of colonoscopy Hx of endoscopy <CHASIDY Albert - Last Filed: 08/28/22 11:07> Family History Family History: Family History Father Hypertension CVD (cardiovascular disease) Mother Hypertension Diabetes Cancer <CHASIDY Albert - Last Filed: 08/28/22 11:07> Social History Social History: Social History Household Members: Family Housing: House Unable to assess alcohol history related to: Unknown Alcohol intake: never Patient Tobacco Use Status: Never used Tobacco e-Cigarette/Vaping Use: Never Used Second Hand Smoke Exposure: No Advance Directives: Yes Advance Directives on File: Yes Advance Directives Date on File: 01/02/22 service: No Current occupational status: disabled Cognitive needs: Yes (wheelchair/walker) Hearing needs: No Vision needs: No <CHASIDY Albert - Last Filed: 08/28/22 11:07> Physical Exam ED Vital Signs: Vital Signs - 24 hr 08/28/22 09:36 08/28/22 11:03 Temperature 98.5 F Pulse Rate 54 58 Respiratory Rate 16 16 Blood Pressure 173/71 H 160/67 H Pulse Oximetry 99 98 Oxygen Delivery Method Room Air Room Air BMI result Body Mass Index 15.9 <CHASIDY Albert - Last Filed: 08/28/22 11:07> Vital Signs - 24 hr 08/28/22 09:36 08/28/22 11:03 Temperature 98.5 F Pulse Rate 54 58 Respiratory Rate 16 16 Blood Pressure 173/71 H 160/67 H Pulse Oximetry 99 98 Oxygen Delivery Method Room Air Room Air BMI result Body Mass Index 15.9 <Bill Mcpherson MD - Last Filed: 08/28/22 10:08> Appearance: Alert cachetic male. No acute distress. Head: normocephalic, atraumatic. Eyes: Pupils equal, round and reactive to light. ENT: Pharynx normal. No tonsillar swelling or exudate. Neck: Normal inspection. Neck supple. CVS: Normal heart rate and rhythm. Pulses normal. Congested cough Respiratory: No respiratory distress. Breath sounds normal. Abdomen: Open PEG stoma in the LUQ without surrounding erythema or drainage. Soft and nontender. +BS x4 Skin: Skin warm and dry. Normal skin color. Normal skin turgor. No rashes. Extremities: No lower extremity edema. No joint swelling. Neuro/psych: awake and alert, mild contractures x4, able to move UE. globally weak <CHASIDY Albert - Last Filed: 08/28/22 11:07> Procedures Feeding Tube Replacement Type of Tube: gastrostomy <CHASIDY Albert - Last Filed: 08/28/22 11:07> Insertion Site Prior to Procedure: clean <CHASIDY Albert - Last Filed: 08/28/22 11:07> Urdu Tube Size (F): 18 <CHASIDY Albert - Last Filed: 08/28/22 11:07> Balloon size (mL): 8 <CHASIDY Albert - Last Filed: 08/28/22 11:07> Verification of Placement: KUB and gastrografin injection <CHASIDY Albert - Last Filed: 08/28/22 11:07> Tube Secured by: tape/dressing <CHASIDY Albert - Last Filed: 08/28/22 11:07> Patient Tolerated Procedure: well and no complications <CHASIDY Albert Last Filed: 08/28/22 11:07> Medical Decision Making Medical Decision Making MDM Narrative: 71 yo male, bedbound on hospice care at home presenting with dislodged PEG tube about 12 hours ago. Initially had some difficulty inserting the PEG, a size smaller, 18F was used and able to be advanced. KUB showed gasgtrograffin in the lumen of GI tract indicating appropriate placement. stable for d/c home with immediate use. family agrees with plan. <CHASIDY Albert - Last Filed: 08/28/22 11:07> Differential Diagnosis Differential Diagnoses: The differential diagnosis associated with the presentation includes <CHASIDY Albert Last Filed: 08/28/22 11:07> dislodged PEG tube, patent tract, occluded tract <CHASIDY Albert Last Filed: 08/28/22 11:07> Consult Healthcare Provider Management of the patient was discussed with: Health Unit Supervisor <CHASIDY Albert - Last Filed: 08/28/22 11:07> Dr. Bishop called expect to ER discussed plan <CHASIDY Albert - Last Filed: 08/28/22 11:07> Independent Interpretation I performed an independent interpretation of an: Plain X-Ray <CHASIDY Albert Last Filed: 08/28/22 11:07> Interpretation: contrast in lumen, appropriate placement peg <CHASIDY Albert Last Filed: 08/28/22 11:07> Radiology Impression Discussion of test interpretation with radiology: I have reviewed the radiologist's reading. <CHASIDY Albert Last Filed: 08/28/22 11:07> Radiologist Impression: EXAMINATION: XR ABDOMEN KUB CLINICAL INDICATION: G-tube placement? COMPARISON: None available.? TECHNIQUE: AP view of the abdomen. FINDINGS: G-tube is in place the balloon of which is inflated, contrast has been injected opacifying portion of the stomach, duodenum and proximal small bowel's. No evidence of contrast leak. XR/XR KUB IMPRESSION: ? *? No evidence of contrast leak. ? *? G-tube in place properly positioned. <CHASIDY Albert Last Filed: 08/28/22 11:07> Independent Historian Clinical information obtained from an independent historian. History obtained from or confirmed by: EMS and Other (son) <CHASIDY Albert Last Filed: 08/28/22 11:07> External Record Review External record reviewed: Office record, Outpatient record, Prior outpatient labs and Prior outpatient radiology <CHASIDY Albert Last Filed: 08/28/22 11:07> Chronic Conditions Patient?s care impacted by: Diabetes and Other (dysphagia) <CHASIDY Albert - Last Filed: 08/28/22 11:07> Attestation Attending Attestation: I reviewed INSTRUCTIONAL SUPPORT TECHNICIAN/PA/Resident note, assessment and plan. I agree with the documentation, assessment and plan unless otherwise stated. Evaluated patient, assisted in replacing Gtube, Xry confirms appropriate placement. <Bill Mcpherson MD - Last Filed: 08/28/22 10:08> Critical Care Time Critical Care Time Critical Care Time: No <CHASIDY Albert - Last Filed: 08/28/22 11:07> Discharge Plan Discharge Clinical Impression: PEG tube malfunction <CHASIDY Albert - Last Filed: 08/28/22 11:07> Patient Disposition: Home, Self-Care <CHASIDY Albert - Last Filed: 08/28/22 11:07> Instructions: How to Use and Care for Your PEG Tube (ED) <CHASIDY Albert - Last Filed: 08/28/22 11:07> Additional Instructions: Your PEG tube was replaced with an 18F tube, we used a smaller size due to difficult placement. It is safe for immediate use. Follow up with GI doctor as needed. <CHASIDY Albert - Last Filed: 08/28/22 11:07> Prescriptions: No Action Glytrol Liquid 1 ea feeding tube QID 30 Days Qty: 120 3RF Rx Instructions: give 1 can 4 times a day via peg tube miscellaneous medical supply [facility] [place] miscellaneous Rx Instructions: Air Concentrator miscellaneous medical supply [facility] [place] miscellaneous Rx Instructions: Broda Wheelchair (DME) AIR CONCENTRATOR See Rx Instructions .Route .MEDSUPPLY Qty: 1 0RF Rx Instructions: As directed (DME) BRODA CHAIR See Rx Instructions .Route .MEDSUPPLY Qty: 1 0RF Rx Instructions: As directed (DME) ADULT DIAPERS medium See Rx Instructions .Route .MEDSUPPLY Qty: 100 12RF Rx Instructions: As directed (DME) ADULT WIPES See Rx Instructions .Route .MEDSUPPLY Qty: 100 12RF Rx Instructions: As directed (DME) HOSPITAL BED See Rx Instructions .Route .MEDSUPPLY Qty: 1 0RF Rx Instructions: As directed miscellaneous medical supply Misc 1 ea miscellaneous DAILY Qty: 1 0RF Rx Instructions: [facility] miscellaneous medical supply Mis 1 ea miscellaneous DAILY Qty: 1 0RF Rx Instructions: VIR[employer] Mattress for [facility] fluoxetine 10 mg capsule 10 mg PO QAM Qty: 90 2RF trazodone 100 mg tablet 100 mg PO BEDTIME PRN (Reason: for insomnia) 30 Days Qty: 30 3RF guaifenesin [Mucinex] 600 mg tablet extended release 12hr 600 mg PO BID PRN (Reason: congestion) Qty: 60 0RF Fleet Enema 19-7 gram/118 mL enema 118 ml LA ONCE PRN (Reason: severe constipation) 1 Days Qty: 10 1RF acetaminophen [Children's Tylenol] 160 mg/5 mL suspension 640 mg PO Q6H PRN (Reason: pain) Qty: 360 3RF diphenhydramine HCl [Allergy (diphenhydramine)] 12.5 mg/5 mL liquid 25 mg PO Q6H PRN (Reason: allergy symptoms) Qty: 150 5RF (DME) blood-glucose meter [FreeStyle Lite Meter] Kit See Rx Instructions .ROUTE .MEDSUPPLY Qty: 1 0RF Rx Instructions: As directed lidocaine 5 % ointment 1 appl topical QID PRN (Reason: pain) 15 Days Qty: 60 5RF azithromycin 250 mg tablet See Rx Instructions PO .COMPLEX Qty: 6 0RF Rx Instructions: take 500 mg today (day 1), then 250 mg for 4 days (days 2-5) PO Sarna Original 0.5-0.5 % lotion 1 appl topical BID-QID PRN (Reason: itching) Qty: 222 0RF omeprazole 20 mg capsule,delayed release(DR/EC) 20 mg PO DAILY 30 Days Qty: 30 2RF lactulose 10 gram/15 mL solution 20 g PO DAILY Qty: 473 3RF guaifenesin [Tussin] 100 mg/5 mL liquid 200 mg PO Q4H PRN (Reason: cough) Qty: 473 4RF sennosides [Senna Lax] 8.6 mg Tablet 17.2 mg PO BEDTIME PRN (Reason: Constipation) Qty: 30 0RF diphenhydramine HCl 25 mg tablet 25 mg PO TID PRN clotrimazole 1 % cream topical DAILY guaifenesin 100 mg/5 mL liquid 200 mg PO Q4H PRN Lac-Hydrin Five 5 % lotion 1 appl topical BID PRN (Reason: dry skin) Qty: 226 12RF (DME) GLYTROL 250 ml See Rx Instructions .Route .MEDSUPPLY Qty: 90 12RF Rx Instructions: As directed Farxiga 10 mg tablet 10 mg PO QAM multivitamin Tablet 1 tab PO QAM 90 Days Qty: 90 0RF cholecalciferol (vitamin D3) 125 mcg/mL (5,000 unit/mL) drops 125 mcg PO .COMPLEX 90 Days Qty: 52 1RF Rx Instructions: 125 mcg orally or via PEG tube three times a week; <CHASIDY Albert - Last Filed: 08/28/22 11:07> Interventions: ED Discharge Assessment Last Done: 08/28/22 11:06 <CHASIDY Albert - Last Filed: 08/28/22 11:07>
--- NOTE | 2022-08-28 10:14 | PC.NURSE ---
G TUBE WAS REPLACED WITH AN 18FR CONFIRMED
[2022-08-28 11:03] VITALS: BP 160/67; PULSE 58; RESP 16; O2SAT 98
== END 2022-08-28 11:19 | disposition home or self-care (01) ==
PROVIDERS: Emergency Provider Emergency Medicine
DX: T85.518A Breakdown (mechanical) of other gastrointestinal prosthetic devices, implants and grafts, initial encounter (principal); Y82.8 Other medical devices associated with adverse incidents; Y92.039 Unspecified place in apartment as the place of occurrence of the external cause; I10 Essential (primary) hypertension; E78.5 Hyperlipidemia, unspecified
CPT/HCPCS: 43762; 74018; 99283; 99285

== ENCOUNTER → 2022-09-22 08:45 | Outpatient (BNVA) | payer MEDICARE, MEDICAID, SELFPAY | PROVIDERS: Visit Provider Internal Medicine Gastroenterology | DX: K29.50 Unspecified chronic gastritis without bleeding (principal); K59.04 Chronic idiopathic constipation; E55.9 Vitamin D deficiency, unspecified; R13.14 Dysphagia, pharyngoesophageal phase; R79.89 Other specified abnormal findings of blood chemistry; Z93.1 Gastrostomy status | CPT/HCPCS: 99212 ==

== ENCOUNTER 2022-10-20 08:38 | Outpatient (REF) | payer OTHER, MEDICARE, MEDICAID, SELFPAY ==
--- NOTE | ~2022-10-20 | US_ITS ---
EXAMINATION: US ABDOMEN COMPLETE CLINICAL INFORMATION: Other specified abnormal findings of blood chemistry. COMPARISON: X-ray KUB 08/28/2022. Ultrasound abdomen limited and CT abdomen and pelvis 08/31/2020. TECHNIQUE: Real-time imaging of the abdominal viscera. FINDINGS: PANCREAS: Normal. ABDOMINAL AORTA: The proximal, mid, and distal segments are normal in caliber. There is mild atherosclerotic disease with vessel wall calcification INFERIOR VENA CAVA: Visualized portions are normal. LIVER: Normal. The liver is normal in size. The liver contour is normal. Parenchymal echogenicity is normal. No focal hepatic lesion. There is no intrahepatic biliary duct dilatation seen. GALLBLADDER: Normal. The gallbladder is physiologically distended without evidence of stones, sludge, polyps, wall thickening or pericholecystic fluid. COMMON BILE DUCT: Normal in caliber measuring 0.3 cm in diameter. RIGHT KIDNEY: 8 x 7 x 6 mm cyst in the lower pole. No hydronephrosis or renal calculi. The kidney measures 9.8 cm in maximum dimension. LEFT KIDNEY: Normal. No hydronephrosis. No renal calculi or focal parenchymal lesions. The kidney measures 10.7 cm in maximum dimension. SPLEEN: Normal. The spleen measures 8.9 cm in maximum dimension. FREE FLUID: None. ADDITIONAL FINDINGS: Small pericardial effusion incidentally noted. US/US abdomen complete IMPRESSION: Atherosclerotic disease and small pericardial effusion otherwise unremarkable exam.
== END 2022-10-20 08:39 | disposition home or self-care (01) ==
LOC: HO.US 08:38
PROVIDERS: Visit Provider Internal Medicine Gastroenterology
DX: R79.89 Other specified abnormal findings of blood chemistry (principal)
CPT/HCPCS: 76700

== ENCOUNTER 2022-11-13 08:52 | Outpatient (REF) | payer MEDICARE, MEDICAID, SELFPAY ==
[2022-11-13 09:10] VITALS: BMI 15.5
[2022-11-13 09:11] VITALS: BP 170/90; PULSE 69; RESP 16; TEMP 36; O2SAT 99
[2022-11-13 09:51] VITALS: BP 163/99; PULSE 63; RESP 16; O2SAT 98
--- NOTE | 2022-11-13 10:53 | PCN2_ITS ---
Brief Operative Note Date of procedure: 11/13/22 Pre-op diagnosis: Gastrostomy malfunction Post-op diagnosis: same Procedure: Procedure Note Date of procedure: 11/13/22 Pre-op diagnosis:? gastrostomy status Post-op diagnosis: same Procedure: CHANGE OF GASTROSTOMY TUBE Consent obtained from Patient's cousin and DPOA Possible complications of bleeding and pain at gastrostomy site was reviewed. Procedure was performed in Minor Procedure room Existing PEG tube was removed without difficulty A 20 F THO replacement gastrostomy tube was inserted easily. Gastrostomy balloon was inflated with 9 ml of saline. External bolster was positioned at 4 cms from the anterior abdominal wall. PEG tube position was confirmed with air insufflation with a synringe. RECOMMENDATIONS: 1.? PEG tube can be used for tube feedings immediately. 2.? PEG tube change at [facility] [place] in 6 to 8 months Anesthesia: none Surgeon: Los Bishop Pathology: none sent Condition: stable Disposition: Home Anesthesia: none
== END 2022-11-13 08:53 | disposition home or self-care (01) ==
LOC: HO.MS 08:52
PROVIDERS: PCP Internal Medicine; Visit Provider Internal Medicine Gastroenterology
PROC: 0DH63UZ Insertion of Feeding Device into Stomach, Percutaneous Approach (ICD-10-PCS; CPT 43246; principal; 2022-11-13 09:20)
DX: Z43.1 Encounter for attention to gastrostomy (principal)
CPT/HCPCS: 43762

== ENCOUNTER → 2022-11-13 08:52 | Outpatient (BNV) | payer MEDICARE, MEDICAID, SELFPAY | PROVIDERS: PCP Internal Medicine; Visit Provider Internal Medicine Gastroenterology | DX: K94.23 Gastrostomy malfunction (principal); Z46.59 Encounter for fitting and adjustment of other gastrointestinal appliance and device | CPT/HCPCS: 43762 ==

== ENCOUNTER 2022-12-22 10:29 | Outpatient (AMB) | payer MEDICARE, MEDICAID, SELFPAY ==
--- NOTE | 2022-12-22 10:29 | A.OFFPC_ITS ---
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 Accompanied by: TERRA COTTA MASON Moses Allergies diatrizoate sodium [From HYPAQUE] Allergy (Unknown, Verified 12/22/22 11:34) HIVES Iodinated Contrast Media [IV Dye, Iodine Containing] Allergy (Unknown, Verified 12/22/22 11:34) HIVES penicillin V Allergy (Unknown, Verified 12/22/22 11:34) Hives Penicillins [PENICILLINS] Allergy (Unknown, Verified 12/22/22 11:34) RASH dulaglutide [Trulicity] Adverse Reaction (Unknown, Verified 12/22/22 11:34) abdominal pain Medication List - Last Reconciled 12/22/22 by Rajendra Quigley MD acetaminophen (Children's Tylenol) 640 mg (20 mL) PO Q6H PRN [ADULT DIAPERS As directed] [ADULT WIPES As directed] [AIR CONCENTRATOR As directed] ammonium lactate 5% (Lac-Hydrin Five) 1 appl topical BID PRN azithromycin (Zithromax) For 250 mg dose pack: take 500 mg today (day 1), then 250 mg for 4 days (days 2-5) PO blood-glucose meter (FreeStyle Lite Meter kit) As directed [BRODA CHAIR As directed] camphor-menthol 0.5-0.5 % (Sarna Original) 1 appl topical BID-QID PRN cholecalciferol (vitamin D3) 125 mcg orally or via PEG tube three times a week; 90 days clotrimazole 1% 1 appl topical BID PRN dapagliflozin propanediol (Farxiga) 10 mg PO QAM diphenhydramine HCl 25 mg PO TID PRN diphenhydramine HCl (Allergy (diphenhydramine)) 25 mg (10 mL) PO Q6H PRN fluoxetine 10 mg PO QAM [GLYTROL As directed] guaifenesin (Tussin) 200 mg (10 mL) PO Q4H PRN guaifenesin 200 mg PO Q4H PRN guaifenesin ER (Mucinex) 600 mg PO BID PRN [HOSPITAL BED As directed] lactulose 20 grams (30 mL) PO DAILY lidocaine 5% 1 appl topical QID PRN 15 days miscellaneous medical supply [facility] miscellaneous medical supply 1 ea miscellaneous DAILY miscellaneous medical supply 1 ea miscellaneous DAILY miscellaneous medical supply Air Concentrator multivitamin 1 tab PO QAM 90 days nut.tx.gluc.intol,lac-free,soy (Glytrol oral liquid) 1 ea feeding tube QID 30 days omeprazole 20 mg PO DAILY 30 days sennosides (Senna Lax) 17.2 mg (2 x 8.6 mg) PO BEDTIME 90 days sodium phosphates 19-7 gram/118 mL (Fleet Enema) 118 mL TX ONCE PRN 1 day trazodone 100 mg PO BEDTIME PRN 30 days Tobacco use date assessed: 12/22/22 Fall risk assessment: No Falls in past year Last assessed Fall Risk: 12/22/22 Dental Screening Dental Screen Date: 12/22/22 Did you have a dental visit in the last 12 months?: No Did you have a dental problem in the last 6 months where you did not have access to dental care?: No Was dental information given to patient?: No HPI 4mth f/u HPI Details Patient's follow-up visit / consultation today is done over the phone - this is a Telehealth visit Patient's current medications have been reviewed and verified with patient and / or caregiver / proxy and have been updated accordingly in the medication list Facetime was initially attempted but we were unable to connect, most likely due to poor internet connectivity Patient's family states that his condition is overall unchanged - is currently still on Hospice He was reportedly not doing too well last week (was eating poorly and appeared very weak) but states that he looks much better this week and is starting to eat some foods again Reports that he also had a huge bowel movement the other day (after not having any bowel movement for over a week) and thinks that this may have made him feel better Patient continues to be bedbound and is being visited and serviced by the hospice nurses regularly States that his medications have remained the same with no changes lately He still has some chronic ulcers on his ankles but these appear clean with no drainage and he continues to receive routine wound care on these regularly Patient reportedly has no other acute issues or complaints [facility] Medical History Benign essential hypertension Dementia Dementia Depression Developmental delay, mild Diabetes mellitus Dyslipidemia Essential hypertension Gastric ulcer without hemorrhage or perforation Gastritis History of Helicobacter pylori infection Insomnia Mixed hyperlipidemia Proteinuria Skin sore Tubular adenoma 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 Unexplained weight loss Unsteady gait Vitamin D deficiency Surgical History History of colonoscopy Hx of endoscopy Family History Father Hypertension CVD (cardiovascular disease) Mother Hypertension Diabetes Cancer Social History Household Members: Family Housing: House Unable to assess alcohol history related to: Unknown Alcohol intake: never Patient Tobacco Use Status: Never used Tobacco e-Cigarette/Vaping Use: Never Used Second Hand Smoke Exposure: No Advance Directives Date on File: 01/02/22 service: No Current occupational status: disabled Cognitive needs: Yes (wheelchair/walker) Hearing needs: No Vision needs: No Questionnaire PHQ-9 Over the last 2 weeks, how often have you been bothered by any of the following problems? 1. Little interest or pleasure in doing things: not at all 2. Feeling down, depressed, or hopeless: not at all 3. Trouble falling or staying asleep, or sleeping too much: not at all 4. Feeling tired or having little energy: nearly every day 5. Poor appetite or overeating: nearly every day 6. Feeling bad about yourself - or that you are a failure or have let yourself or your family down: not at all 7. Trouble concentrating on things, such as reading the newspaper or watching television: not at all 8. Moving or speaking so slowly that other people could have noticed. Or the opposite - being so fidgety or restless that you have been moving around a lot more than usual: not at all 9. Thoughts that you would be better off or of hurting yourself in some way: not at all Total score: 6 Depression Screening Interpretation: Positive Depression Screening Follow-up: Existing condition and In treatment 08597 - PHQ-9 Billing: Yes Source: Developed by Drs. Antony Goodman, Aileen Leblanc, Akira Heart and colleagues, with an educational imelda from [employer]. Thrive Questionnaire Date Thrive assessed: 12/22/22 I am a: Parent/Caregiver What is your living situation today?: I have a steady place to live Within the past 12 months, did the food you bought not last and you didn't have the money to get more?: Never true Within the past 12 months, did you worry whether your food would run out before you got money to buy more?: Never true Do you have trouble paying for medicines?: No Do you have trouble getting transportation to medical appointments?: No Do you have trouble paying your heating and electricity bill?: No Do you have trouble taking care of your child, family member or friend?: No Do you have trouble with day-to-day activities such as bathing, preparing meals, shopping, managing finances, etc.?: No Are you currently unemployed and looking for a job?: No Are you interested in more education?: No Please select the resources that you would like help with: None Currently or been in a relationship where the following occur: no concerns reported AUDIT C Alcohol Use Questionnaire (AUDIT-C) 1. How often do you have a drink containing alcohol?: Never Total Score: 0 Score Reviewed/Action Taken: Yes EDMOND-7 AMB Questionnaire EDMOND-7 Date EDMOND - 7 assessed: 12/22/22 Feeling nervous, anxious, or on edge: 0 = Not at all Not being able to stop or control worryin = Not at all Worrying too much about different things: 0 = Not at all Trouble relaxin = Not at all Being so restless that it is hard to sit still: 0 = Not at all Becoming easily annoyed or irritable: 0 = Not at all Feeling afraid as if something awful might happen: 0 = Not at all Total EDMOND-7 score (0-4 normal; 5-9 mild; 10-14 moderate; 15-21 severe): 0 Source: Developed by Drs. Antony Goodman, Aileen Leblanc, Akira Heart and colleagues, with an educational imelda from [employer]. Review of Systems Const Details: ROS is limited and obtained primarily from patient's family as patient is not ab le to communicate or verbalize Denies chills, Denies fever(s), Denies headache(s) and Reports weight loss (weighs around 90 pounds now approximately) ENT Denies headache(s), Denies sinus pain and Denies sore throat Card Denies chest pain, Denies palpitations and Denies dyspnea Resp Denies cough and Denies dyspnea GI Details: (+) G-tube for feeding Denies abdominal pain, Denies constipation (improving), Denies heartburn, Reports fecal incontinence, Denies loose stools, Denies nausea and Denies vomiting Reports urinary incontinence Musc Reports abnormal gait (very unsteady and weak - is mostly bedbound), Reports atrophy and Reports muscle weakness Skin/Breast Details: (+) blister on the left ankle and superficial sore on left foot Reports change in pigmentation (over both lower legs and feet, primarily due to dry skin) and Reports dry skin Neuro Reports Abnormal speech present (aphasic), Reports abnormal gait (very unsteady and weak - is mostly bedbound), Reports confusion and Denies headache(s) Psych Reports confusion Endo Denies palpitations Physical exam (Primary Care) Vital Signs: Physical examination is not performed as visit / consultation today is done over the phone - Telehealth visit All physical findings indicated here, if present, are as per patient's and / or caregivers / proxy's report Tobacco/Smoking Status: Tobacco use Status Tobacco use date assessed 12/22/22 12/22/22 10:34 Patient Tobacco Use Status Never used Tobacco 12/22/22 10:34 e-Cigarette/Vaping Use Never Used 12/22/22 10:34 PHQ-9: PHQ-9 Score PHQ-9: Total score 6 12/22/22 10:34 Depression Screening Interpretation: Positive Depression Screening Follow-up: Existing condition and In treatment Thrive Assessment: Date of Thrive Assessment Date Thrive assessed 12/22/22 12/22/22 10:34 Currently or been in a relationship where the following occur: no concerns reported Const General: confusion Orientation/consciousness: confusion Neuro General: confusion Speech: Abnormal speech present (aphasic) Telehealth Telehealth Location of provider rendering services: practice address Location of patient: address on file Patient Identification confirmed using: Name, : Yes Telehealth method: voice only Patient verbally consented to treatment: Yes Patient verbally consented to billing insurance company: Yes Patient informed of any privacy concerns related to visit: Yes Minutes spent on Phone/Video with Pt.: 18 Assessment and Plan Assessment & Plan (1) Chronic static encephalopathy: Code(s): G93.49 - Other encephalopathy Plan: Has been seen by neurology in the past but has not followed up with neurology over the past couple of years now Have reminded patient's family that there may not really be much else that can be done for patient's condition at this time except for supportive care Patient is now in the Hospice program and is receiving routine services and care from hospice nurses regularly (2) Adult failure to thrive: Comment: S/P G-tube insertion on 09/02/2020 Code(s): R62.7 - Adult failure to thrive Plan: Currently has a G-tube in place (inserted 08/2020) for his nutritional support/feedings and meds, as patient is not able to cooperate and has not been eating or drinking by mouth much for a couple of years now (3) Chronic idiopathic constipation: Code(s): K59.04 - Chronic idiopathic constipation Plan: Continue Senna 8.6 mg 2 tablets QD and Lactulose 10 mg/15 mg 30 ml QD although patient is now incontinent and wears adult diapers Follow up with GI as scheduled (4) Diabetes mellitus: Code(s): E11.9 - Type 2 diabetes mellitus without complications Qualifiers: Diabetes mellitus type: type 2 Diabetes mellitus shuttle operator insulin use: without skilled nursing use Diabetes mellitus complication status: without complication Qualified Code(s): E11.9 - Type 2 diabetes mellitus without complications Plan: In-office HgbA1c done back in April 2022 was at 5.6% (HgbA1c was at 5.5% when last checked in 03/2021) - goal is <7.0% Reinforced diabetic diet Continue Farxiga 10 mg Q AM (5) Mixed hyperlipidemia: Code(s): E78.2 - Mixed hyperlipidemia Plan: Reinforced low cholesterol diet His most recent labs done back in May 2022 revealed elevated cholesterol level at 226 mg/dl and LDL was at 126 mg/dl (6) Gastritis: Code(s): K29.70 - Gastritis, unspecified, without bleeding Qualifiers: Gastritis type: unspecified gastritis Chronicity: chronic Gastritis bleeding: without bleeding Qualified Code(s): K29.50 - Unspecified chronic gastritis without bleeding Plan: Confirmed on EGD; also (+) Hx of H. pylori, S/P Tx Continue Omeprazole 20 mg QD Follow up with GI as scheduled (7) Dry skin dermatitis: Code(s): L85.3 - Xerosis cutis Plan: Continue Lac-Hydrin lotion 5% BID PRN (8) Blister of left ankle: Code(s): S90.522A - Blister (nonthermal), left ankle, initial encounter Qualifiers: Encounter type: initial encounter Qualified Code(s): S90.522A - Blister (nonthermal), left ankle, initial encounter Plan: Patient's family states that they have been keeping it clean and applying some OTC Abx ointment on it regularly and that the wound currently appears clean and dry Is instructed to continue with daily wound care and advised to call if the lesion appears to be getting worse at any time or is not healing as expected (9) Skin lesion of foot: Code(s): L98.9 - Disorder of the skin and subcutaneous tissue, unspecified Plan: Patient's family again states that they have been keeping this clean and applying some OTC Abx ointment on it regularly Advised to continue with daily wound care and to call if the lesion gets worse or does not appear to be healing as expected (10) Mental disability: Comment: Mental retardation Code(s): F79 - Unspecified intellectual disabilities Plan: (+) developmental delay - chronic; unknown etiology (11) Insomnia: Code(s): G47.00 - Insomnia, unspecified Qualifiers: Insomnia type: unspecified Qualified Code(s): G47.00 - Insomnia, unspecified Plan: Continue Trazodone 100 mg Q HS PRN (12) Depression: Code(s): F32.9 - Major depressive disorder, single episode, unspecified Qualifiers: Depression Type: major depressive disorder Major depression recurrence: recurrent Active/Remission status: currently active Major depression episode severity: unspecified Qualified Code(s): F33.9 - Major depressive disorder, recurrent, unspecified Plan: Continue Fluoxetine 10 mg QD Plan Follow up in 4 months Coding Level of Care Code Tele Est Pt Level 3 (07229) Diagnoses Chronic static encephalopathy G93.49 Adult failure to thrive R62.7 Chronic idiopathic constipation K59.04 Diabetes mellitus E11.9 Diabetes mellitus type: type 2 Diabetes mellitus shuttle operator insulin use: without skilled nursing use Diabetes mellitus complication status: without complication Mixed hyperlipidemia E78.2 Gastritis K29.50 Gastritis type: unspecified gastritis Chronicity: chronic Gastritis bleeding: without bleeding Dry skin dermatitis L85.3 Blister of left ankle S90.522A Encounter type: initial encounter Skin lesion of foot L98.9 Mental disability F79 Insomnia G47.00 Insomnia type: unspecified Depression F33.9 Depression Type: major depressive disorder Major depression recurrence: recurrent Active/Remission status: currently active Major depression episode severity: unspecified
== END 2022-12-22 11:47 | disposition home or self-care (01) ==
PROVIDERS: PCP Internal Medicine; Visit Provider Internal Medicine
DX: E11.9 Type 2 diabetes mellitus without complications (principal); K29.50 Unspecified chronic gastritis without bleeding; F33.9 Major depressive disorder, recurrent, unspecified; G93.49 Other encephalopathy; R62.7 Adult failure to thrive; K59.04 Chronic idiopathic constipation; E78.2 Mixed hyperlipidemia; L85.3 Xerosis cutis; S90.522A Blister (nonthermal), left ankle, initial encounter; L98.9 Disorder of the skin and subcutaneous tissue, unspecified; F79 Unspecified intellectual disabilities; G47.00 Insomnia, unspecified
CPT/HCPCS: 99442

== ENCOUNTER 2022-12-28 08:43 | Outpatient (AMB) | payer MEDICARE, MEDICAID, OTHER, SELFPAY ==
--- NOTE | 2022-12-28 08:44 | MHC.OFFVIS ---
Intake Intake Visit Reasons: 3 month follow up Intake Note: Patient follow up for chronic constipation. Patient denies any GI issues. 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 Accompanied by: Family/Other Allergies diatrizoate sodium [From HYPAQUE] Allergy (Unknown, Verified 12/28/22 08:44) HIVES Iodinated Contrast Media [IV Dye, Iodine Containing] Allergy (Unknown, Verified 12/28/22 08:44) HIVES penicillin V Allergy (Unknown, Verified 12/28/22 08:44) Hives Penicillins [PENICILLINS] Allergy (Unknown, Verified 12/28/22 08:44) RASH dulaglutide [Trulicity] Adverse Reaction (Unknown, Verified 12/28/22 08:44) abdominal pain Medication List - Last Reconciled 12/28/22 by Los Bishop MD acetaminophen (Children's Tylenol) 640 mg (20 mL) PO Q6H PRN [ADULT DIAPERS As directed] [ADULT WIPES As directed] [AIR CONCENTRATOR As directed] ammonium lactate 5% (Lac-Hydrin Five) 1 appl topical BID PRN blood-glucose meter (FreeStyle Lite Meter kit) As directed [BRODA CHAIR As directed] camphor-menthol 0.5-0.5 % (Sarna Original) 1 appl topical BID-QID PRN cholecalciferol (vitamin D3) 125 mcg orally or via PEG tube three times a week; 90 days clotrimazole 1% 1 appl topical BID PRN dapagliflozin propanediol (Farxiga) 10 mg PO QAM diphenhydramine HCl 25 mg PO TID PRN diphenhydramine HCl (Allergy (diphenhydramine)) 25 mg (10 mL) PO Q6H PRN fluoxetine 10 mg PO QAM [GLYTROL As directed] guaifenesin (Tussin) 200 mg (10 mL) PO Q4H PRN guaifenesin 200 mg PO Q4H PRN guaifenesin ER (Mucinex) 600 mg PO BID PRN [HOSPITAL BED As directed] lactulose 20 grams (30 mL) PO DAILY lidocaine 5% 1 appl topical QID PRN 15 days miscellaneous medical supply Broda Wheelchair miscellaneous medical supply 1 ea miscellaneous DAILY miscellaneous medical supply 1 ea miscellaneous DAILY miscellaneous medical supply Air Concentrator multivitamin 1 tab PO QAM 90 days nut.tx.gluc.intol,lac-free,soy (Glytrol oral liquid) 1 ea feeding tube QID 30 days omeprazole 20 mg PO DAILY 30 days sennosides (Senna Lax) 17.2 mg (2 x 8.6 mg) PO BEDTIME 90 days sodium phosphates 19-7 gram/118 mL (Fleet Enema) 118 mL AR ONCE PRN 1 day trazodone 100 mg PO BEDTIME PRN 30 days HPI 3 month follow up HPI Details TELEMEDICINE VISIT FOR THIS 72-YEAR-OLD NON VERBAL MALE WITH DEVELOPMENTAL DELAY FOR FOLLOW-UP OF DECREASED APPETITE, CHRONIC CONSTIPATION AND WEIGHT LOSS. A PEG tube was placed on 09/02/[address] Vann. He was discharged home with RECOMMENDATIONS FOR TF GLYTROL (GLUCERNA) BOLUS 1 CARTON (8OZ) X 5 PER DAY WITH 120CC FREE WATER FLUSHES TID. Pt is under Hospice care and has Hospice nurses visiting him at home. His sister, Trisha Del Angel, is his residential child care counselor and HCP. NEUROLOGICAL PHYSIOTHERAPIST Moses Nichols ( ) LABS IN [facility] : 03/2021 - reviewed, 12/04/19 normal CBC with platelet count of 188, ESR 2, normal CRP, normal LFTs, pre-albumin was 25, normal vitamin B12 and folate , HIV antibody and hepatitis-C antibodies were negative. ? 05/2019 REVIEWED. CELIAC SEROLOGIES WERE NEGATIVE WITH A NORMAL IGA 05/24/19 A STOOL FIT TEST WAS NEGATIVE ?IMAGING STUDIES: 10/20/22 ABD US SHOWED: LIVER: Normal. The liver is normal in size. The liver contour is normal. Parenchymal echogenicity is normal. No focal hepatic lesion. There is no intrahepatic biliary duct dilatation seen. GALLBLADDER: Normal. The gallbladder is physiologically distended without evidence of stones, sludge, polyps, wall thickening or pericholecystic fluid. 12/25/19 BARIUM SWALLOW SHOWED: ? Significantly limited examination due to patient factors. There is mild ? esophageal dysmotility with delay of the secondary stripping wave. ? Grossly no intraluminal mass, ulceration, or fixed stricture. If there ? is a specific clinical concern regarding the patient's swallowing ? mechanism then a speech language pathology consultation can be obtained ? followed by a a modified barium swallow which is specifically tailored for this purpose. ? 04/[address] SCAN WAS NORMAL. ?ENDOSCOPIC STUDIES: 10/28/19 EGD SHOWED: ? STOMACH: Moderate diffuse gastric erythema with decreased fundal folds. A few chronic appearing erosions in the antrum likely related to aspirin use - ulcer seen on past EGD has healed. ? ? ? Biopsies were obtained from the antrum of the stomach to confirm H Pylori eradication post antibiotic treatment. ? Plan: ? Patient has an appointment on 11/20/19 in the [facility] with Los Bishop M.D ? BIOPSIES SHOWED: ? Stomach, biopsies: Gastric mucosa with moderate chronic, active gastritis; negative for Helicobacter pylori; negative for intestinal metaplasia/dysplasia. ?06/06/19 EGD AND COLONOSCOPY SHOWED: ? ESOPHAGUS: Dysphagia likely due to esophageal motility disorder ? STOMACH: Gastritis with a nodule with a central ulcer ? DUODENUM: Duodenitis in the bulb ?Colonoscopy Findings: ? Two small polyps removed ? Moderate hemorrhoids on retroflexed exam. ? Plan: ? Start Omeprazole 20 daily for gastric ulcer. ? Consider repeat EGD in 10-12 weeks to confirm ulcer has healed. ? Repeat Colonoscopy interval based on path results - in 5 years if polyps are adenomatous and due to a history of adenomatous colon polyps. ? Above findings were reviewed with the patient and Gastritis and colon polyps handouts ? were provided. ? BIOPSIES SHOWED: ? A. Small bowel, biopsy: Small intestinal mucosa within normal limits. ? B. Stomach, antrum, biopsy: ? - Antral-type mucosa with severe chronic, focally active, inflammation. ? - Positive for H. pylori. ? C. Stomach, antral nodule, biopsy: ? - Antral-type mucosa with hyperplastic changes and severe chronic, focally ? active, inflammation. ? - Positive for H. pylori. ? D. Stomach, body, biopsy: ? - Oxyntic mucosa with moderate chronic inactive inflammation. ? - Positive for H. pylori. ? E. Colon, transverse, polypectomy: Hyperplastic mucosal polyp. ? F. Colon, sigmoid, polypectomy: Hyperplastic mucosal polyp. ?TODAY'S VISIT: I spoke to NEUROLOGICAL PHYSIOTHERAPIST Moses Nichols ( ) Per NEUROLOGICAL PHYSIOTHERAPIST, pt is doing pretty good. Tube feedings are going well. Denies any problems Weight has been stable Continues to have constipation and is getting lactulose prn - advised to change to once a day Takes Senna 2 tab at bedtime and Bisacodyl Has a BM every 2-3 days. Enema if no BM for a week. PAST VISIT: Pt is accompanied by his NEUROLOGICAL PHYSIOTHERAPIST and cousin.? Had PEG tube replaced by a smaller caliber PEG tube Has a BM once a week. Had a BM yesterday Had an enema last Sunday and no BM till yesterday Constipation x 2 weeks Passed out when he went to the bathroom BP was high and HR was low. Slowly getting better day by day since then Pt is on hospice care and has [facility] coming to the house Sister called [facility]NA and they came quickly. He has been weak since and unable to get up and? walk. Had difficulty sleeping and is sleeping better since his PCP prescribed a medicine for his cough (Guaifenesin) Follow up of weight loss and PEG tube. Tube feedings are working fine. Pt is able to eat some food PO. Has periods when he refuses to eat and is only fed by tube feedings (when he is depressed). Gets constipated - had 2 large BMs yesterday on his own He gets an enema prn if no BM x 1-2 weeks. Per Sister pt lost some weight a few weeks ago and is slowly gaining it back? - looks a little chubier than before. Weighs 113 lbs - improved from 90 lbs a year ago He goes to the bathroom - stool can be pasty or normal. Pt is to be discharged from Hospice care next months and patient sister would like to get prescriptions for Glytrol 4 cans/ day - submitted to [facility] by GI RN Also needs a hospital bed - message sent to his PCP Patient is in hospice the tube was clog but the nurse from hospice help him to unclog the tube. Denies any other GI symptoms. ?Tube was unclogged by putting coca cola which unclogged. He has been gaining some weight.? Also taking p.o. diet.? He is on lactulose for constipation having a bowel movement every other day and does not need to take any enemas anymore. Doing Ok with the PEG tube feedings. Unable to obtain the pump to administer the tube feedings. Sister is unsure if the pump was approved by the Insurance. Sister is feeding him with a syringe - at 8am, 11am, 2 pm and 5 PM He is also being fed by mouth - baby food, yogurt, blendarized food with protein. Sister is giving him an enema every Sunday and has a BM once a week - advised to give an enema twice a?week [facility] Medical History Benign essential hypertension Dementia Dementia Depression Developmental delay, mild Diabetes mellitus Dyslipidemia Essential hypertension Gastric ulcer without hemorrhage or perforation Gastritis History of Helicobacter pylori infection Insomnia Mixed hyperlipidemia Proteinuria Skin sore Tubular adenoma 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 Unexplained weight loss Unsteady gait Vitamin D deficiency Surgical History History of colonoscopy Hx of endoscopy Family History Father Hypertension CVD (cardiovascular disease) Mother Hypertension Diabetes Cancer Social History Household Members: Family Housing: House Unable to assess alcohol history related to: Unknown Alcohol intake: never Patient Tobacco Use Status: Never used Tobacco e-Cigarette/Vaping Use: Never Used Second Hand Smoke Exposure: No Advance Directives Date on File: 01/02/22 service: No Current occupational status: disabled Cognitive needs: Yes (wheelchair/walker) Hearing needs: No Vision needs: No Review of Systems Const All systems reviewed & are unremarkable except as noted in HPI and below Assessment & Plan Assessment & Plan (1) Elevated LFTs: Code(s): R79.89 - Other specified abnormal findings of blood chemistry (2) Presence of externally removable percutaneous endoscopic gastrostomy (PEG) tube: Code(s): Z93.1 - Gastrostomy status (3) Chronic idiopathic constipation: Code(s): K59.04 - Chronic idiopathic constipation (4) Colon cancer screening: Comment: 05/2019 2 small hyperplastic polyps were removed during colonoscopy. Repeat colonoscopy is advised in 5 years due to a history of adenomatous colon polyps (due in 05/2024) Code(s): Z12.11 - Encounter for screening for malignant neoplasm of colon (5) Dysphagia, pharyngoesophageal phase: Code(s): R13.14 - Dysphagia, pharyngoesophageal phase Plan 72 year old nonverbal male with Dementia, Hypertension, diabetes mellitus, hyperlipidemia, vitamin d deficiency, obesity, depression, mental retardation, proteinuria, alf current use of insulin, tubular adenoma of colon 06/2015 , varicose veins of RLE c pain Pt is followed in GI for chronic associated with H Pylori infection and a decrease in appetite associated with 50 lb weight loss over the past year. No source for weight loss was detected on abdominal CT scan in 04/24 05/26 EGD showed Gastritis with a nodule with a central ulcer. Two small hyperplastic polyps were removed during same-day colonoscopy. Patient has had cognitive impairment since childhood, his memory appears to be worsening per sister, as he has been forgetful and wondering at home. Sister reports that she cooks and brings patient food, but is unsure if he is eating all of it.? Weight loss may be associated with cognitive impairment. A PEG tube was placed on 09/02/[address] Vann and wt loss has stabilized and pt has regained some of the weight. He was discharged home with RECOMMENDATIONS FOR TF GLUCERNA BOLUS 1 CARTON (8OZ) X5 PER DAY WITH 120CC FREE WATER FLUSHES TID. Patient's sister was advised to continue tube feedings with? with a syringe - at 8am, 11am, 2 pm and 5 PM until a pump is available He is also being fed by mouth - baby food, yogurt, blendarized food with protein. Sister was advised to give an enema prn for constipation. Pt had elevated LFT during hospitalization in August - likely related to pneumonia. FU LFTs showed improvement Per Sister pt lost some weight a few weeks ago and is slowly gaining it back? - looks a little chubier than before. Weighs 113 lbs - improved from 90 lbs a year ago Pt was discharged from Hospice care and prescriptions for Glytrol 4 cans/ day - submitted to [facility] by GI RN Also needs a hospital bed - message sent to his PCP PEG tube was changed on 12/30/21 09/22/22 Had PEG tube replaced by a smaller caliber PEG tube (18 F) in the ER on 08/28/22 Tube is functioning and takes longer to administer his medications. Pt can eat three meals a day by mouth on some days. 11/13/22 PEG tube was replaced with a 20 Wolof gastrostomy tube. 12/28/22 PEG tube feedings are going well Follow-up appointment in 4 months, peg tube replacement in 6-12 months. Orders: Orders Comprehensive Met. Panel Today R79.89 - Other specified abnormal findings of blood chemistry IRON PROFILE Today R79.89 - Other specified abnormal findings of blood chemistry Complete Blood Count Auto Diff Today R79.89 - Other specified abnormal findings of blood chemistry Ferritin Today R79.89 - Other specified abnormal findings of blood chemistry Prothrombin Time INR Today R79.89 - Other specified abnormal findings of blood chemistry Protein Electrophoresis, Serum Today R79.89 - Other specified abnormal findings of blood chemistry Smooth Muscle Antibody Today R79.89 - Other specified abnormal findings of blood chemistry Medications: Refilled lactulose 20 grams (30 mL) PO DAILY 473 mL 3RF constipation cholecalciferol (vitamin D3) 125 mcg orally or via PEG tube three times a week; 90 days 52 mL 1RF E55.9 - Vitamin D deficiency, unspecified Telehealth Telehealth Location of provider rendering services: practice address Location of patient: address on file Patient Identification confirmed using: Name, : Yes Telehealth method: voice only Patient verbally consented to treatment: Yes Patient verbally consented to billing insurance company: Yes Patient informed of any privacy concerns related to visit: Yes Minutes spent on Phone/Video with Pt.: 20 Coding Level of Care Code Tele Est Pt Level 3 (81746) Diagnoses Elevated LFTs R79.89 Presence of externally removable percutaneous endoscopic gastrostomy (PEG) tube Z93.1 Chronic idiopathic constipation K59.04 Colon cancer screening Z12.11 Dysphagia, pharyngoesophageal phase R13.14
== END 2022-12-28 13:28 | disposition home or self-care (01) ==
LOC: HO.HGI 08:43
PROVIDERS: PCP Internal Medicine; Visit Provider Internal Medicine Gastroenterology
DX: K59.04 Chronic idiopathic constipation (principal); R79.89 Other specified abnormal findings of blood chemistry; Z93.1 Gastrostomy status; R13.14 Dysphagia, pharyngoesophageal phase
CPT/HCPCS: 99442

== ENCOUNTER → 2022-12-28 08:43 | Outpatient (BNVA) | payer MEDICARE, MEDICAID, OTHER, SELFPAY | PROVIDERS: PCP Internal Medicine; Visit Provider Internal Medicine Gastroenterology ==